=== PATIENT | male | born 1950 | race Caucasian/White ===

== ENCOUNTER 2021-06-26 11:05 | Inpatient (IN) | payer MEDICARE, BC ==
[~2021-06-26] VITALS: Ht 177 cm; Wt 122.6 kg
[~2021-06-26 11:05] MED LIST: ACETAMINOPHEN 325 MG TABLET PO PRN; BISACODYL 10 MG SUPP (DULCOLAX) PR PRN; CALCIUM CARBONATE 500 MG (TUMS) TAB.CHEW PO PRN; DOCUSATE SODIUM 100 MG (COLACE) CAP PO PRN; FLEET ENEMA ADULT 1 EA BTL PR PRN; LACTULOSE SYRUP 10GM/15ML (ENULOSE) 30ML UDC PO PRN; LOPERAMIDE 2 MG (IMODIUM) TABLET PO PRN; MELATONIN 3 MG TABLET PO PRN; ONDANSETRON 4 MG (ZOFRAN) ORAL DISSOLVE TAB PO PRN; diphenhydrAMINE 25 MG TAB (BENADRYL) PO PRN; guaiFENesin/CODEINE (ROBITUSSIN AC) 10ML UDC PO PRN
[2021-06-26 11:30] VITALS: BP 148/72
[2021-06-26] MEDS ORDERED: ALPRAZolam 0.25 MG (XANAX) TAB PO PRN (11:30)
--- NOTE | 2021-06-26 11:49 | PM&R Post Admission Assessment ---
PM&R Date of Visit: Jun 26, 2021 Time of Visit: 12:00 History of Present Illness Chief complaint: Critical illness myopathy History of present illness: This is a 70-year-old male who presented to [facility] on 05/15/2021 with respiratory distress and fever of 103 with diarrhea. He suffered a PEA cardiac arrest in the ER and was intubated and spent 1 week in the ICU with shock requiring Levophed. He suffered acute kidney injury due to acute tubular necrosis with his baseline of creatinine 1.3 but peaked at 6.7 and patient required hemodialysis. He did have an episode of atrial fibrillation with rapid ventricular response currently on amiodarone and Coreg. He was treated for a yeast infection in his upper respiratory tract along with Enterococcus and E. coli. He completed a regimen of micafungin and Rocephin. Rhinovirus was diagnosed 2 weeks prior to going to [place] on 06/08/2021. He was extubated on 1 6:02 days of ventilator status and placed on BiPAP. He was weaned to 4 L of oxygen at [place]. He cardioverted and now in normal sinus rhythm. His kidneys eventually regain function and the last dialysis was 06/05/2021. He remains with a Najera catheter in [employer] work on getting that removed. Past Fnnsnpb-Cssfht-Tdkpyc Hx Past Med/Social Hx: Reviewed Nursing Past Med/Soc Hx, Reviewed and Corrections made Patient Social History Marrital Status: Employed/Student: retired Alcohol Use: Denies Use Smoking Status: Never a Smoker Past Medical History Surgeries: CABG, Gallbladder Respiratory: Pneumonia, Sleep Apnea Cardiac: Atrial Fibrillation, Chronic Edema/Swelling, High Cholesterol, Hyp ertension Genitourinary: Renal Failure Musculoskeletal: Chronic Back Pain PM&R Allergy/Meds/Data Review Allergies Coded Allergies: temazepam (Verified Allergy, Unknown, 06/26/21) Home Medications Scheduled Amiodarone HCl (Amiodarone HCl), 200 MG PO DAILY, (Reported) Apixaban (Eliquis), 2.5 MG PO BID, (Reported) Atorvastatin Calcium (Atorvastatin Calcium), 40 MG PO Q48H @HS, (Reported) Carvedilol (Coreg), 3.125 MG PO BID, (Reported) Clopidogrel Bisulfate (Clopidogrel), 75 MG PO DAILY, (Reported) Docusate Sodium (Docusate Sodium), 100 MG PO BID, (Reported) Insulin Glargine,Hum.rec.anlog (Lantus Solostar), 22 UNITS SC HS, (Reported) Insulin Lispro (Humalog), UNIT SQ ACHS, (Reported) Pantoprazole Sodium (Pantoprazole Sodium), 40 MG PO DAILY, (Reported) Trazodone HCl (Trazodone HCl), 50 MG PO HS, (Reported) Scheduled PRN Acetaminophen (Tylenol), 650 MG PO Q6H PRN for PAIN-MILD (1-4) OR TEMPATURE, (Reported) Hydralazine HCl (Hydralazine HCl), 10 MG IV Q4H PRN for BLOOD PRESSURE, (Reported) Ipratropium/Albuterol Sulfate (Iprat-Albut 0.5-3(2.5) mg/3 ml), 3 ML IH Q6H PRN for SHORTNESS OF BREATH, (Reported) Melatonin (Melatonin), 10 MG PO HS PRN for INSOMNIA, (Reported) Ondansetron HCl (Ondansetron HCl), 4 MG IV Q6H PRN for NAUSEA/VOMITING-1ST LINE, (Reported) Oxycodone HCl/Acetaminophen (Oxycodone-Acetaminophen 5-325), 1 EACH PO Q4H PRN for PAIN-MODERATE (5-7), (Reported) Polyethylene Glycol 3350 (Miralax), 17 GM PO DAILY PRN for CONSTIPATION-2ND LINE, (Reported) Current Medications Current Medications Reviewed Review of Systems Constitutional: see HPI, malaise, weakness EENTM: no symptoms reported Respiratory: dyspnea on exertion Cardiovascular: no symptoms reported Gastrointestinal: no symptoms reported Genitourinary: other (Najera catheter) Musculoskeletal: back pain, joint pain Skin: no symptoms reported Psychiatric/Neurological: Anxiety, Depressed All Other Systems Reviewed Negative Unless Noted: Yes Physical Exam Physical Exam Vital Signs Capillary Refill : Height, Weight, BMI Height: '" Weight: lbs. oz. kg; BMI Method: General Appearance: No Apparent Distress, WD/WN, Chronically ill, Obese Eyes: Bilateral Eye Normal Inspection, Bilateral Eye PERRL HEENT: PERRL/EOMI, Normal ENT Inspection, Pharynx Normal Neck: Full Range of Motion, Normal Inspection, Non Tender, Supple, Carotid Bruit Respiratory: Chest Non Tender, Lungs Clear, Normal Breath Sounds, No Accessory Muscle Use, No Respiratory Distress Cardiovascular: Regular Rate, Rhythm, No Edema, No Gallop, No JVD, No Murmur, Normal Peripheral Pulses Gastrointestinal: Normal Bowel Sounds, No Organomegaly, No Pulsatile Mass, Non Tender, Soft Back: Normal Inspection, No CVA Tenderness, No Vertebral Tenderness Extremity: Normal Capillary Refill, Normal Inspection, Normal Range of Motion, Non Tender, No Calf Tenderness, No Pedal Edema Neurologic/Psychiatric: Alert, Oriented x3, No Motor/Sensory Deficits, Normal Mood/Affect, Abnormal Gait, Motor Weakness (Generalized 3/5) Skin: Normal Color, Warm/Dry Lymphatic: No Adenopathy PM&R Medical Assessment & Plan REHAB/MEDICAL ASSESSMENT AND PLAN: REHAB IMPAIRMENT GROUP: Myopathy ETIOLOGIC DIAGNOSIS: Myopathy The comorbidities that impact the patients function and/or functional outcome by: Increased BMI of 37, history of hemodialysis critically ill, atrial fibrillation with RVR who REHAB PLAN: The patient is being admitted to our comprehensive inpatient rehabilitation facility and can tolerate the intensity of service consisting of at least: 180 minutes of therapy a day, 5 out of 7 days a week Rehab treatment will consist of: PT and OT will focus on regaining function with assistive devices in order to regain enough independence to return back to independent living at home The patient/family has a good understanding of our discharge process and will benefit from an interdisciplinary inpatient rehabilitation program. The patient has potential to make improvement and is in need of at least two of the following multidisciplinary therapies including but not limited to physical, occupational, speech, and prosthetics and orthotics. Additionally the patient will need services from respiratory, nutritional services, wound care, psychology, etc. (Customize this to each patient). Given the patients complex condition and risk of further medical complications, rehabilitation services cannot be safely or effectively provided at a lower level of care such as a retirement facility. BARRIERS TO DISCHARGE: Severe weakness ESTIMATED LOS: 10 days DISPOSITION: Home RELEVANT CHANGES SINCE PREADMISSION SCREENING: I have compared the patients medical and functional status at the time of the preadmission screening and there are: No changes PROGNOSIS: Good REHABILITATION GOALS: 1. PT and OT will focus on regaining function with assistive devices in order to regain enough independence to return back to independent living at home All the above goals were reviewed with the patient and he/she is in agreement. By signing this document, I acknowledge that I have personally performed a full physical examination on this patient within 24 hours of admission to this inpatient rehabilitation facility and have determined the patient to be able to tolerate the above course of treatment at an intensive level for a reasonable period of time. I will be completing a detailed individualized Plan of Care for this patient by day #4 of the patients stay based upon the Preadmission Screen, the Post-Admission Evaluation, and the therapy evaluations. 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
--- NOTE | 2021-06-26 11:51 | Occupational Therapy Eval ---
OT Evaluation-General/PLF Medical Diagnosis Admission Date Jun 26, 2021 at 11:05 Medical Diagnosis: critical illness myopathy Onset Date: Jul 24, 2021 Therapy Diagnosis Therapy Diagnosis: decreased ADL status Referral Physician: John Patel Reason: Evaluation/Treatment Medical History Pertinent Medical History: CABG, CAD, COPD, DM, GERD, HTN, Renal Insufficiency Additional Medical History CHF, HLP, HERMINIO Current History Presented to [place] 05/15/21 with dyspnea, fever, and diarrhea. Found to be hypoxic and hypoglycemic. Shortly after arrival, had PEA arrest and emergent intubation. Transferred to ICU, developed OSWALDO secondary to ARN. ICU c/b afib with RVR. CXR positive for yeast, enterococcus, and E. Coli, also positive for rhinovirus. Pt extubated 05/20/21, permacath placed 06/04, removed 06/18/21. Pt transferred to ARU 06/26/21 for continued medication management and skilled therapy. Social History Home: Single Level Current Living Status: Spouse Entry Into Home: Stairs With Railing (unstable handrail) Steps Into Home: 2 ADL-Prior Level of Function SCALE: Activities may be completed with or without assistive devices. 0-Rzcfwhpktk-rheutph completes the activity by him/herself with no assistance from a helper. 5-Set-up or Clean-up Assistance-helper sets up or cleans up; patient completes activity. [place] assists only prior to or following the activity. 4-Supervision or Touching Assistance-helper provides verbal cues and/or touching/steadying and/or contact guard assistance as patient completes activity. Assistance may be provided throughout the activity or intermittently. 3-Partial/Moderate Assistance-helper does LESS THAN HALF the effort. [place] lifts, holds or supports trunk or limbs, but provides less than half the effort. 2-Substantial/Maximal Assistance-helper does MORE THAN HALF the effort. [place] lifts or holds trunk or limbs and provides more than half the effort. 9-Iqlbbwgsb-ltxofq does ALL the effort. Patient does none of the effort to complete the activity. Or, the assistance of 2 or more helpers is required for the patient to complete the activity. If activity was not attempted, code reason: 7-Patient Refused. 9-Not Applicable-not attempted and the patient did not perform the activity before the current illness, exacerbation or injury. 10-Not Attempted due to Environmental Limitations-(lack of equipment, weather restraints, etc.). 88-Not Attempted due to Medical Conditions or Safety Concerns. ADL PLOF Comments Pt reports IND with ADLS and functional mobility at PLOF, no AD/AE. He has both a tub/shower and a walk in shower. He is having grab bars installed in his bathroom. Self Care: Independent Functional Cognition: Independent DME/Equipment: Shower, Tub/Shower OT Current Status Subjective Pt agreeable to OT evaluation and OT tx. Mental Status/Objective Patient Orientation: Person, Place, Situation Attachments: IV, Oxygen Current Glasses/Contacts: Yes Hearing Aids: No Dentures/Partials: Yes Hand Dominance: Right Upper Extremity ROM WFL, BUE shoulder flexion to approx 130 degrees Upper Extremity Coordination WFL Upper Extremity Sensation WFL Upper Extremity Strength grossly 3+/5 ADL-Treatment Eating (QC): 5 (set up per report) Oral Hygiene (QC): 3 (Min A with rinsing per pt report) Shower/Bathe Self (QC): 3 (Min A. Assist with BLE lower legs/feet and buttocks. Pt washed all other parts seated.) Upper Body Dressing (QC): 5 (set up with washing machine loader and puller shirt) Lower Body Dressing (QC): 2 (Max a with threading and assist with pant hike) On/Off Footwear (QC): 1 (Total with gripper socks) Toileting Hygiene (QC): 2 (max A with pant hike and assistance with hygiene) Other Treatments OT evaluation complete. OT/PT cotreat due to skill of 2 clinicians required which a diagnostic technician could not perform in order to coordinate UE/LEs, decrease fall risk and due to pt's limitations in strength, activity tolerance and mobility. OT focused on UE placement and cues for sequencing and safety. PT focused on functional mobility/transfers, gross overall movement and LE placement. Pt completed functional mobility and transfers including car transfer, ambulation and bed mobility. OT tx: Pt transferred supine to sit EOB, then min A sit to stand transfer from elevated bed. Pt used FWW to transfer to recliner. Pt completed dressing and sponge bath as outlined above. Post tx, pt in recliner, call light in reach and all needs met. Waffle cushion in recliner. Education OT Patient Education: Correct positioning, Energy conservation, Exercise program, Modified ADL techniques, Progress toward Goal/Update tx plan, Purpose of tx/functional activities, Rehab process Teaching Recipient: Patient Teaching Methods: Discussion Response to Teaching: Verbalize Understanding OT Short Term Goals Short Term Goals Time Frame: Jul 10, 2021 Toileting hygiene: 3 Shower/bathe self: 4 Lower body dressin Putting on/taking off footwear: 3 OT Prison Goals Prison Goals Time Frame: Jul 24, 2021 Eating (QC): 6 Oral Hygiene (QC): 6 Toileting Hygiene (QC): 6 Shower/Bathe Self (QC): 6 Upper Body Dressing (QC): 6 Lower Body Dressing (QC): 6 On/Off Footwear (QC): 6 Additional Goals: 1-Demonstrate ADL Tasks, 2-Verbalize Understanding, 3- ImproveStrength/Queenie 1=Demonstrate adherence to instructed precautions during ADL tasks. 2=Patient will verbalize/demonstrate understanding of assistive devices/modifications for ADL. 3=Patient will improve strength/tolerance for activity to enable patient to perform ADL's. OT Education/Plan Problem List/Assessment Assessment: Decreased Activ Tolerance, Decreased UE Strength, Impaired Funct Balance, Impaired I ADL's, Impaired Self-Care Skills Discharge Recommendations Plan/Recommendations: Continue POC Treatment Plan/Plan of Care Patient would benefit from OT for education, treatment and training to promote independence in ADL's, mobility, safety and/or upper extremity function for ADL's. Plan of Care: ADL Retraining, Functional Mobility, Group Exercise/Act as Ind, UE Funct Exercise/Act Treatment Duration: Jul 24, 2021 Frequency: At least 5 of 7 days/Wk (IRF) Estimated Hrs Per Day: 1.5 hours per day Agreement: Yes Rehab Potential: Good Time/GCodes Start Time: 11:15 Stop Time: 12:00 Total Time Billed (hr/min): 45 Billed Treatment Time 9615-6653 OT eval, 2038-6958 [place], 8300-0710 OT Tx 1, EVM (10'), ADL 2 (35') WILSON TEJADA OT Jun 26, 2021 11:51
--- NOTE | 2021-06-26 12:31 | Physical Therapy Evaluation ---
PT Evaluation-General Medical Diagnosis Admission Date Jun 26, 2021 at 11:05 Medical Diagnosis: critical illness myopathy Onset Date: Jul 24, 2021 Therapy Diagnosis Therapy Diagnosis: impaired mobility, strength, endurance Referral Physician: Pratibha Lopez DO Reason for Referral: Evaluation/Treatment Medical History Pertinent Medical History: CABG, CAD, COPD, DM, GERD, HTN, Renal Insufficiency Reviewed History: Yes Social History Home: Single Level Current Living Status: Spouse Entry Into Home: Stairs With Railing (unstable handrail) PT Steps Into Home: 2 Prior Prior Level of Function SCALE: Activities may be completed with or without assistive devices. 3-Gyarxazxnq-sntslkc completes the activity by him/herself with no assistance from a helper. 5-Set-up or Clean-up Assistance-helper sets up or cleans up; patient completes activity. [place] assists only prior to or following the activity. 4-Supervision or Touching Assistance-helper provides verbal cues and/or touching/steadying and/or contact guard assistance as patient completes activity. Assistance may be provided throughout the activity or intermittently. 3-Partial/Moderate Assistance-helper does LESS THAN HALF the effort. [place] lifts, holds or supports trunk or limbs, but provides less than half the effort. 2-Substantial/Maximal Assistance-helper does MORE THAN HALF the effort. [place] lifts or holds trunk or limbs and provides more than half the effort. 6-Dvgjuroch-tpcsck does ALL the effort. Patient does none of the effort to complete the activity. Or, the assistance of 2 or more helpers is required for the patient to complete the activity. If activity was not attempted, code reason: 7-Patient Refused. 9-Not Applicable-not attempted and the patient did not perform the activity before the current illness, exacerbation or injury. 10-Not Attempted due to Environmental Limitations-(lack of equipment, weather restraints, etc.). 88-Not Attempted due to Medical Conditions or Safety Concerns. Bed Mobility: 6 Transfers (B,C,W/C): 6 Gait: 6 Stairs: 6 Indoor Mobility (Ambulation): Independent Stairs: Independent PT Evaluation-Current Subjective Patient in WC pre tx, agrees to PT, has no complaints of pain at rest. Will be co-treating with OT for part of tx due to poor patient mobility, strength, endurance, severe debility, coordinate UE and LE during activity, safety and reduce risk of falls. Pt/Family Goals to be independent at home Objective Patient Orientation: Person, Place, Situation Attachments: Oxygen, Najera Catheter ROM/Strength ROM Lower Extremities limited due to edema Strength Lower Extremities LLE (hip flexion 3+/5, knee flexion 4/5, knee extension 4/5, dorsiflexion 4/5), RLE (hip flexion 3+/5, knee flexion 4/5, knee extension 4/5, dorsiflexion 4/5) Sensory Hearing: Functional Hand Dominance: Right Sensation Right Lower Extremit: Intact Sensation Left Lower Extremity: Intact Transfers Roll Left & Right (QC): 4 Sit to Lying (QC): 4 Lying to Sitting/Side of Bed(Q: 4 Sit to Stand (QC): 3 Chair/Ora-qc-Tjccc Xfer(QC): 4 Toilet Transfer (QC): 4 Car Transfer (QC): 3 Patient performed rolling and supine <-> sit with SBA, sit <-> stand min assist, transfers CGA, car transfer min assist. Patient needs cues for positioning and safety. Gait Does the Patient Walk?: Yes Mode of Locomotion: Walk Anticipated Mode of Locomotion: Walk Walk 10 feet (QC): 4 Walk 50 ft with 2 Turns(QC): 88 Walk 150 ft (QC): 88 Walking 10ft/uneven surface-QC: 88 Distance: 40', 5' Gait Assistive Device: FWW Comments/Gait Description Patient can ambulate 40' with a rolling walker with CGA, patient is very shaky, was not able to ambulate over an uneven surface, very poor endurance Wheelchair Training Does the Pt Use a Wheelchair?: No Wheel 50 ft with 2 turns (QC): 9 Wheel 150 ft (QC): 9 Stairs 1 Step (curb) (QC): 88 4 Steps (QC): 88 12 Steps (QC): 88 Balance Sitting Static: Normal Sitting Dynamic: Normal Standing Static: Fair Standing Dynamic: Fair Picking up an Object (QC): 4 (CGA using metallurgical specialist) Assessment/Needs Patient in recliner post tx with nurse call, phone, tray, all needs met. Patient has impaired mobility, strength, endurance. Needs min assist to stand but performs transfers and ambulation with CGA. He has poor endurance and wasn't able to ambulate much after the first bout of ambulation. Rehab Potential: Fair PT Short Term Goals Short Term Goals Time Frame: Jul 03, 2021 Roll Left & Right: 6 Sit to lyin Lying to sitting on side of be: 6 Sit to stand: 4 (CGA) Chair/kaf-wm-fzegb transfer: 4 (SBA) Walk 10 feet: 4 (SBA) Walk 50 feet with two turns: 4 (SBA) PT [facility] Goals Internet Sales Director Goals PT [facility] Goals Time Frame: Jul 17, 2021 Roll Left & Right (QC): 6 Sit to Lying (QC): 6 Lying-Sitting on Side/Bed(QC): 6 Sit to Stand (QC): 4 (CGA) Chair/Jec-ms-Hdicn Xfer(QC): 6 Toilet Transfer (QC): 6 Car Transfer (QC): 4 (CGA) Does the Patient Walk: Yes Walk 10 feet (QC): 6 Walk 50ft with 2 Turns (QC): 6 Walk 150 ft (QC): 6 Walking 10ft on Uneven Surface: 6 1 Step (curb) (QC): 4 (CGA) 4 Steps (QC): 4 (CGA) 12 Steps (QC): 88 Picking up an Object (QC): 6 Wheel 50 feet with 2 turns (QC: 9 Wheel 150 feet: 9 PT Plan Problem List Problem List: Activity Tolerance, Functional Strength, Safety, Balance, Gait, Transfer, Bed Mobility, ROM Treatment/Plan Treatment Plan: Continue Plan of Care Treatment Plan: Bed Mobility, Education, Functional Activity Queenie, Functional Strength, Group Therapy, Gait, Safety, Therapeutic Exercise, Transfers Treatment Duration: Jul 17, 2021 Frequency: At least 5 of 7 days/Wk (IRF) Estimated Hrs Per Day: 1.5 hours per day Patient and/or Family Agrees t: Yes Safety Risks/Education Patient Education: Gait Training, Transfer Techniques, Correct Positioning, Safety Issues Teaching Recipient: Patient Teaching Methods: Demonstration, Discussion Response to Teaching: Reinforcement Needed Discharge Recommendations Plan Patient will perform bed mobility and transfer training, balance and endurance training, functional strengthening, stair training, gait training, and education, to improve functional mobility and independence at home. Therapy Discharge Recommendati: Home & Family, Post Acute PT Time/GCodes Time In: 1105 Time Out: 1130 Total Billed Treatment Time: 15 Total Billed Treatment 1 visit EVM 10' PT eval from 0498-3197, OT eval from 7135-3929, co-treat from 1227-3287 PT performed bed mobility and transfers, ambulation, OT worked on safety cues and UE positioning during activity MIGUEL ANGEL TIRADO PT Jun 26, 2021 12:31
[2021-06-26] MEDS ORDERED: CARV3.12 PO (13:26)
[2021-06-26] MEDS ORDERED: INSU100V SQ (13:26)
[2021-06-26] MEDS ORDERED: OXYC1TAB11 PO (13:26)
[2021-06-26] MEDS ORDERED: PANT40TA52 PO (13:26)
[2021-06-26] MEDS ORDERED: MELA5TAB14 PO (13:26)
[2021-06-26] MEDS ORDERED: DOCU100T2 PO (13:26)
[2021-06-26] MEDS ORDERED: IPRA3AMP31 IH (13:26)
[2021-06-26] MEDS ORDERED: INSU100I10 SC (13:26)
[2021-06-26] MEDS ORDERED: POLY17PO6 PO (13:26)
[2021-06-26] MEDS ORDERED: AMIO200T65 PO (13:26)
[2021-06-26] MEDS ORDERED: APIX2.5T PO (13:26)
[2021-06-26] MEDS ORDERED: ACET325T38 PO (13:26)
[2021-06-26] MEDS ORDERED: HYDR20VI7 IV (13:26)
[2021-06-26] MEDS ORDERED: TRZ50T PO (13:26)
[2021-06-26] MEDS ORDERED: CLOP75TA28 PO (13:26)
[2021-06-26] MEDS ORDERED: ONDA2VIA6C IV (13:26)
[2021-06-26] MEDS ORDERED: ATOR40TA70 PO (13:26)
--- NOTE | 2021-06-26 13:42 | Physical Therapy Daily Note ---
PT Daily Note-Current Subjective Pt. agrees to PT OT co Tx. Pt. very fatigued, weak, and at risk for incident of fall etc. Pt. explains his medical history, his recent medical history as well as his social situation which includes his who has dementia and requires his care. Pt. has 2 daughters in the area and one many years ago . Pt. motivated , shares the arrangement of his home and therapists explained how we will attempt to simulate that in the rehab process. Pt. states he has used O2 at home for quite some time.Pt. denied pain , but c/o fatigue and weakness mimi after TRF to bed from recliner. Pain Location: No Pain Reported Appearance pt. with noted edema peyton LEs, Mental Status Patient Orientation: Normal For Age Attachments: Oxygen (3L), Najera Catheter Transfers SCALE: Activities may be completed with or without assistive devices. 5-Ipqwjdfomj-ohlmsec completes the activity by him/herself with no assistance from a helper. 5-Set-up or Clean-up Assistance-helper sets up or cleans up; patient completes activity. [place] assists only prior to or following the activity. 4-Supervision or Touching Assistance-helper provides verbal cues and/or touching/steadying and/or contact guard assistance as patient completes activity. Assistance may be provided throughout the activity or intermittently. 3-Partial/Moderate Assistance-helper does LESS THAN HALF the effort. [place] lifts, holds or supports trunk or limbs, but provides less than half the effort. 2-Substantial/Maximal Assistance-helper does MORE THAN HALF the effort. [place] lifts or holds trunk or limbs and provides more than half the effort. 5-Jfvwbsfuc-xqwwba does ALL the effort. Patient does none of the effort to complete the activity. Or, the assistance of 2 or more helpers is required for the patient to complete the activity. If activity was not attempted, code reason: 7-Patient Refused. 9-Not Applicable-not attempted and the patient did not perform the activity before the current illness, exacerbation or injury. 10-Not Attempted due to Environmental Limitations-(lack of equipment, weather restraints, etc.). 88-Not Attempted due to Medical Conditions or Safety Concerns. Sit to Lying (QC): 4 Sit to Stand (QC): 4 Chair/Rtu-id-Aimlm Xfer(QC): 4 pt. uses a rocking momentum to stand from seated position, counting to 3 as he rocks forward x 3 then up Gait Training Does the Patient Walk?: Yes Gait Assistive Device: FWW pt. ambulated approx 8 feet from chair to bed with instruction for safe side stepping and approach to bed. small uneven steps, poor heel strike. Exercises Seated Therapy Exercises: Ankle pumps, Sit to stand (x1), Long arc quads, Hip flexion Seated Reps: 12 Treatments PT OT educated pt on ARU expectations , schedule, goals and roles of each discipline. Pt. demonstrated indep in managing dinner tray , utensil, drinking etc. OT noting LE edema donned bilat RAND hose max assist, Pt. stood with min assist and instruction and walked as per stated above, sit to sup CGA, O2 insitu, lazaro at hand and needs met. Assessment Current Status: Good Progress motivated, gives full effort PT Short Term Goals Short Term Goals Time Frame: Jul 03, 2021 Roll Left & Right: 6 Sit to lyin Lying to sitting on side of be: 6 Sit to stand: 4 (CGA) Chair/ajp-xc-savsu transfer: 4 (SBA) Walk 10 feet: 4 (SBA) Walk 50 feet with two turns: 4 (SBA) PT Alf Goals Alf Goals PT Alf Goals Time Frame: Jul 17, 2021 Roll Left & Right (QC): 6 Sit to Lying (QC): 6 Lying-Sitting on Side/Bed(QC): 6 Sit to Stand (QC): 4 (CGA) Chair/Khp-wd-Uesdn Xfer(QC): 6 Toilet Transfer (QC): 6 Car Transfer (QC): 4 (CGA) Does the Patient Walk: Yes Walk 10 feet (QC): 6 Walk 50ft with 2 Turns (QC): 6 Walk 150 ft (QC): 6 Walking 10ft on Uneven Surface: 6 1 Step (curb) (QC): 4 (CGA) 4 Steps (QC): 4 (CGA) 12 Steps (QC): 88 Picking up an Object (QC): 6 Wheel 50 feet with 2 turns (QC: 9 Wheel 150 feet: 9 PT Plan Treatment/Plan Treatment Plan: Continue Plan of Care Treatment Plan: Bed Mobility, Education, Functional Activity Queenie, Functional Strength, Group Therapy, Gait, Safety, Therapeutic Exercise, Transfers Treatment Duration: Jul 17, 2021 Frequency: At least 5 of 7 days/Wk (IRF) Estimated Hrs Per Day: 1.5 hours per day Patient and/or Family Agrees t: Yes Safety Risks/Education Patient Education: Gait Training, Transfer Techniques, Correct Positioning, Disease Process, Safety Issues Teaching Recipient: Patient Teaching Methods: Demonstration, Discussion Response to Teaching: Verbalize Understanding, Return Demonstration, Reinforcem ent Needed Time/GCodes Time In: 1245 Time Out: 1335 Total Billed Treatment Time: 50 Total Billed Treatment 1,FA50m PT OT co Tx 50m) ROMEO LOVE FUR OPERATOR Jun 26, 2021 13:42
--- NOTE | 2021-06-26 13:42 | Occupational Ther Daily Note ---
OT Current Status-Daily Note Subjective Pt alert, sitting in recliner. Pt agrees to therapy. No c/o pain. OT/PT co-treat(3402-8150), skills of 2 clinicians required to decrease fall risk and increase activity tolerance. PT focusing on ambulation and transfers while OT focusing on ADLs and B UE placement with functional mobility. Mental Status/Objective Patient Orientation: Person, Place, Time, Situation Attachments: IV, Oxygen (3L) ADL-Treatment Pt independent with eating. Pt is max A for footwear, is able to lift and hold leg while footwear is placed. Pt has walk-in shower with 2" ledge to step over. Pt completes most of cooking at home and does cleaning. has beginning stages of dementia. Sit to stand, min A. CGA and verbal cues to ambulate ~10 steps from recliner to EOB. Pt then was able to go from EOB to supine by self. After session, pt lying in bed with call light/phone in reach. All needs met in room. Therapy Code Descriptions/Definitions Functional [place] Measure: 0=Not Assessed/NA 4=Minimal Assistance 1=Total Assistance 5=Supervision or Setup 2=Maximal Assistance 6=Modified [place] 3=Moderate Assistance 7=Complete IndependenceSCALE: Activities may be completed with or without assistive devices. 5-Mxargolgpz-hxsrfzk completes the activity by him/herself with no assistance from a helper. 5-Set-up or Clean-up Assistance-helper sets up or cleans up; patient completes activity. [place] assists only prior to or following the activity. 4-Supervision or Touching Assistance-helper provides verbal cues and/or touching/steadying and/or contact guard assistance as patient completes activity. Assistance may be provided throughout the activity or intermittently. 3-Partial/Moderate Assistance-helper does LESS THAN HALF the effort. [place] lifts, holds or supports trunk or limbs, but provides less than half the effort. 2-Substantial/Maximal Assistance-helper does MORE THAN HALF the effort. [place] lifts or holds trunk or limbs and provides more than half the effort. 6-Grwkqwhvx-whrzcv does ALL the effort. Patient does none of the effort to complete the activity. Or, the assistance of 2 or more helpers is required for the patient to complete the activity. If activity was not attempted, code reason: 7-Patient Refused. 9-Not Applicable-not attempted and the patient did not perform the activity before the current illness, exacerbation or injury. 10-Not Attempted due to Environmental Limitations-(lack of equipment, weather restraints, etc.). 88-Not Attempted due to Medical Conditions or Safety Concerns. Eating (QC): 6 On/Off Footwear: 2 OT Short Term Goals Short Term Goals Time Frame: Jul 10, 2021 Toileting hygiene: 3 Shower/bathe self: 4 Lower body dressin Putting on/taking off footwear: 3 OT Child Caregiver Private Home Goals Child Caregiver Private Home Goals Time Frame: Jul 24, 2021 Eating (QC): 6 Oral Hygiene (QC): 6 Toileting Hygiene (QC): 6 Shower/Bathe Self (QC): 6 Upper Body Dressing (QC): 6 Lower Body Dressing (QC): 6 On/Off Footwear (QC): 6 Additional Goals: 1-Demonstrate ADL Tasks, 2-Verbalize Understanding, 3-ImproveStrength/Queenie 1=Demonstrate adherence to instructed precautions during ADL tasks. 2=Patient will verbalize/demonstrate understanding of assistive devices/modifications for ADL. 3=Patient will improve strength/tolerance for activity to enable patient to perform ADL's. OT Education/Plan Problem List/Assessment Assessment: Decreased Activ Tolerance, Impaired Funct Balance, Impaired Self- Care Skills Discharge Recommendations Plan/Recommendations: Continue POC Treatment Plan/Plan of Care Patient would benefit from OT for education, treatment and training to promote independence in ADL's, mobility, safety and/or upper extremity function for ADL's. Plan of Care: ADL Retraining, Functional Mobility, Group Exercise/Act as Ind, UE Funct Exercise/Act Treatment Duration: Jul 24, 2021 Frequency: At least 5 of 7 days/Wk (IRF) Estimated Hrs Per Day: 1.5 hours per day Agreement: Yes Rehab Potential: Good Time/GCodes Start Time: 12:45 Stop Time: 13:30 Total Time Billed (hr/min): 45 Billed Treatment Time 1 visit-FA 3 (45 min) ROSA M NOVA Jun 26, 2021 13:42
--- NOTE | 2021-06-26 14:53 | ST Cognitive Linguistic Eval ---
Speech Evaluation-General Medical Diagnosis critical illness myopathy Onset Date: Jul 24, 2021 Therapy Diagnosis Therapy Diagnosis: Cognitive Linguistic Skills WNL Precautions Precautions: Fall Precautions/Isolations: Standard Precautions Referral Referring Physician: Dr. Pratibha Lopez Reason for Referral: Evaluation/Treatment Medical History Pertinent Medical History: CABG, CAD, COPD, DM, GERD, HTN, Renal Insufficiency Current History The patient is a 70 year old male with a past medical history of CABG, CAD, COPD, DM, GERD, HTN, renal insufficiency, CHF, HLP, and HERMINIO, who presented to [facility] on 05/15/21 with dyspnea, fever, and diarrhea. The patient experienced a PEA arrest and was intubated. The patient's chest exam was positive for yeast, enterococcus, and E. Coli. The patient was extubated on 05/20/21 and transferred to ARU on 06/26/21 for skilled therapy. Reviewed History: Yes Social History Current Living Status: Spouse Speech PLF-Current Status Prior Level of Function The patient was independent with ADL's prior to admission. At this time, the patient denies difficulties or complaints with his speech, language, cognition, or swallowing. Subjective The patient was seated upright in his recliner upon entrance to the court. The patient greeted the clinician and was agreeable to participation in the cognitive linguistic evaluation. Language Eval: Auditory Comprehends Simple Yes/No Ques: Functional Indent/Objects Multiple Velasquez: Functional Ident/Pics in Multiple Vel[place]: Functional Follows 1-Step Commands: Functional Follows Complex Directions: Functional Follows General Conversations: Functional Language Eval: Verbal Language Completes Spontaneous Greeting: Functional Produces Auto, Serial Info: Functional Imitates Simple Words/Phrases: Functional Word Finding: Functional Requests Basic Needs: Functional States Basic Personal Info: Functional Expresses Complex Ideas: Functional Language Evaluation: Reading Follows Simple Written Direct: Functional Language Evaluation: Writing Writes to Simple Dictation: Functional Cognitive Patient Orientation The patient was independently oriented to self, location, month, day of week, date, and year. Objective Cognitive Domain Attention: WNL Memory: WNL Problem Solving: Functional Executive Functions: WNL Visuospatial Skills: WNL Composite Severity Rating: WNL Clock Drawing Severity Rating: Mild (The patient does not place the hands of the clock on the accurate time. ) Objective Formal/Standardized Tests [facility] Status ([facility]) Results The patient demonstrated a result of +27/30 on the SLUMS correlating to cognitive linguistic skills within normal limits. Oral Motor/Speech Production The patient does not display dysarthria or apraxia of speech at this time. The patient remains 100% intelligible in known and unknown contexts. Impression The patient demonstrated cognitive linguistic skills within normal limits. The patient demonstrated one error throughout the SLUMS while completing generative naming tasks (the patient was able to name 14, WNL=15) and was unable to place the hands of the clock at the accurate time. Speech Patient Assess Expression of Ideas/Wants: Expression (4) Understanding Verbal Content: Understands (4) Brief Interview-Mental Status: Yes Repetition of Three Words: Three (3) Temporal Orientation: Year: Correct (3) Temporal Orientation: Month: Accurate within 5 days(2) Temporal Orientation: Day: Correct (1) Recall : Wear to say "Sock": Yes, no cue required (2) Recall : Color: Yes, no cue required (2) Recall : Bed: Yes, no cue required (2) Memory/Recall Ability: Current season, That he or she is in a hsp/hsp unit Speech-Plan Treatment Plan Speech Therapy Treatment Plan: Discontinue ST Frequency: 1 time per week Estimated Hrs Per Day: .5 hour per day Rehab Potential: Good Pt/Family Agrees to Plan: Yes Safety Risks/Education Teaching Recipient: Patient, Family Teaching Methods: Discussion Response to Teaching: Verbalize Understanding Education Topics Provided: SLUMS results, Plan of Care, Recommendations Time Speech Therapy Time In: 12:00 Speech Therapy Time Out: 12:30 Total Billed Time: 30 Billed Treatment Time 1, ANNE CHAIDEZ ELIZABETH ST Jun 26, 2021 14:53
[2021-06-26] MEDS ORDERED: hydrALAZINE (APESOLINE) 20 MG/ML VIAL IV PRN (17:00)
[2021-06-26] MEDS ORDERED: ACETAMINOPHEN 325 MG TABLET PO PRN (17:00)
[2021-06-26] MEDS ORDERED: NON-FORMULARY MEDICATION 1 EA EA (Ondansetron HCl 4 MG) IV PRN (17:00)
[2021-06-26] MEDS ORDERED: NON-FORMULARY MEDICATION 1 EA EA (Melatonin 10 MG) PO PRN (17:00)
[2021-06-26] MEDS ORDERED: polyethylene glycoL POWDER 17 GM (MIRALAX) PACK PO PRN (17:00)
[2021-06-26] MEDS ORDERED: RT-ALBUTEROL/IPRATROPIUM 3 ML (DUONEB) VIAL IH PRN (17:00)
[2021-06-26] MEDS: oxyCODONE/APAP 5/325MG (PERCOCET 5) TABLET PO PRN (17:08)
[2021-06-26] MEDS ORDERED: ONDANSETRON 4 MG/2 ML (SDV) Z0FRAN IV PRN (17:15)
[2021-06-26] MEDS ORDERED: MELATONIN 10 MG TABLET PO PRN (17:15)
[2021-06-26 20:02] VITALS: BP 131/62
[2021-06-26] MEDS ORDERED: [UNRECOGNIZED DRUG - OTHER] SC SCH (21:00)
[2021-06-26] MEDS ORDERED: NON-FORMULARY MEDICATION 1 EA EA (Docusate Sodium 100 MG) PO SCH (21:00)
[2021-06-26] MEDS ORDERED: INSULIN GLARGINE HUM REC ANLOG 22 UNIT SC SCH (21:00)
[2021-06-26] MEDS: traZODone 50 MG (DESYREL) TAB PO SCH (21:09)
[2021-06-26] MEDS: DOCUSATE SODIUM 100 MG (COLACE) CAP PO SCH (21:09)
[2021-06-26] MEDS: APIXABAN 2.5 MG (ELIQUIS) TABLET PO SCH (21:09)
[2021-06-26] MEDS: SENNA W/DOCUSATE (SENOKOT S) TABLET PO SCH (21:09)
[2021-06-26] MEDS: inSUlin ASPART (NovoLOG) 1 UNIT/0.01 ML (CHARGE PER UNIT) SC SCH (21:11)
[2021-06-26] MEDS: polyethylene glycoL POWDER 17 GM (MIRALAX) PACK PO SCH (21:12)
[2021-06-27] MEDS: inSUlin ASPART (NovoLOG) 1 UNIT/0.01 ML (CHARGE PER UNIT) SC SCH ×4 (05:24→21:53)
--- NOTE | 2021-06-27 06:48 | Individualized Plan of Care ---
Individualized Plan of Care Rehab Nursing IPOC Order Admission Date Jun 26, 2021 at 11:05 Current Orders Orders Admission Order(Inpt,Obs,Sdc) (06/26/21:23) Vital Signs: Per Unit Policy ( 08,16,00 (06/26/21 09:23) Wiliam Thomas (06/26/21:23) Sequential Compression Device (06/26/21:23) Welder Fitter Helper-Inpt Rehab Con (06/26/21:23) Rehab Nursing Orders-Ipoc (06/26/21:23) Physical Therapy Rehab Orders (06/26/21:23) Occupational Therapy Rehab Ord (06/26/21:) Speech Therapy Rehab Orders (06/26/21) Cbc With Automated Diff (06/27/21 06:00) Comprehensive Metabolic Panel (06/27/21 06:00) Precautions (Aru) (06/26/21:) Weekly Weight WEEK (06/26/21:) Rehab-Intensity Of Therapy (06/26/21:23) Initiate Admission Nursing Pro .admission (06/26/21:23) Alprazolam Tablet (Xanax Tablet) (06/26/21 11:30) Calcium Carbonate Chew Tablet (Antacid C (06/26/21 09:30) Diphenhydramine Tablet (Benadryl Tablet) (06/26/21 09:30) Docusate Sodium Capsule (Colace Capsule) (06/26/21 21:00) Docusate Sodium Capsule (Colace Capsule) (06/26/21 09:30) Bisacodyl Suppository (Dulcolax Supposit (06/26/21 09:30) Lactulose Oral Solution (Enulose Oral So (06/26/21 09:30) Na Phos/Na Biphos Enema (Fleet Enema Srinivasan (06/26/21 09:30) Guaifenesin/Codeine Syrup (Robitussin Ac (06/26/21 09:30) Loperamide Tablet (Imodium Tablet) (06/26/21 09:30) Melatonin Tablet (Melatonin Tablet) (06/26/21 09:30) Polyethylene Glycol Powder Pkt (Miralax (06/26/21 21:00) Ondansetron Oral Dissolve Tab (Zofran (06/26/21 09:30) Senna S Tablet (Senokot S Tablet) (06/26/21 21:00) Acetaminophen Tablet/Caplet (Tylenol T (06/26/21 09:30) Code/Resuscitation (06/26/21 09:23) Sequential Compression Device ONCE (06/26/21 09:23) Initiate Admission Nursing Pro .admission (06/26/21 09:23) Admission Arrival Bed Request (06/26/21 11:12) Cho 60g/M 1snack (16-2000 Óscar) (06/26/21 Lunch) Patient Visit (06/26/21 ) Pt Eval Moderate Complexity (06/26/21 ) Isolation Central Supply Req (06/26/21 14:01) Patient Visit (06/26/21 ) Functional Activities, Ea 15 (06/26/21 ) Patient Visit (06/26/21 ) Speech Sound Lang Comp (06/26/21 ) Treat. Speech/Lang/Voice (06/26/21 ) Acetaminophen Tablet/Caplet (Tylenol T (06/26/21 17:00) Amiodarone Tablet (Cordarone Tablet) (06/27/21 09:00) Apixaban Tablet (Eliquis Tablet) (06/26/21 21:00) Atorvastatin Tablet (Lipitor Tablet) (06/26/21 17:00) Carvedilol Tablet (Coreg Tablet) (06/26/21 21:00) Clopidogrel Tablet (Plavix Tablet) (06/27/21 09:00) Hydralazine Injection (Apresoline Inject (06/26/21 17:00) Albuterol/Ipra Inhalation Soln (Duoneb I (06/26/21 17:00) Oxycodone/Apap 5/325mg Tablet (Percocet (06/26/21 17:00) Pantoprazole Tablet (Protonix Tablet) (06/27/21 09:00) Polyethylene Glycol Powder Pkt (Miralax (06/26/21 17:00) Trazodone Tablet (Desyrel Tablet) (06/26/21 21:00) (Nf) Docusate Sodium (06/26/21 21:00) (Nf) Insulin Glargine,Hum.Rec.Anlog (Adelso (06/26/21 21:00) (Nf) Melatonin (06/26/21 17:00) (Nf) Ondansetron Hcl (06/26/21 17:00) Accucheck Achs ACHS (06/26/21 16:55) Insulin Aspart (Novolog) (Novolog (Charg (06/26/21 21:00) Ondansetron Injection (Zofran Injectio (06/26/21 17:15) Insulin Determir (Per Unit) (Levemir (Pe (06/26/21 21:00) Melatonin Tablet (Melatonin Tablet) (06/26/21 17:15) Consult Cardiology (06/27/21 06:38) Ekg Tracing (06/27/21 08:00) Patient Visit (06/27/21 ) Gait Training, Ea 15 Min (06/27/21 ) Patient May Use Own Med,Single (Patient (06/27/21 21:00) Incentive Spirometry (Nursing) Q2H (06/27/21 12:16) Non-Formulary Medication (Non-Formulary (06/27/21 21:00) Apixaban Tablet (Eliquis Tablet) (06/27/21 21:00) Basic Metabolic Panel (06/28/21 05:00) Rehab Nursing Orders: Ongoing Assess. of Cognitive Status, Ongoing Assess. of Function Status, Bladder Management, Bladder Scan, Bladder Training, Bowel Management, Bowel Training, Disease Management & Educaiton, DVT Prophylaxis, Fall Prevention, Fluid/Electrolyte/Nutrition Mgmt, Infection Prevention, Medication Management & Education, Management of Risks & Complications, Management of Skin Intergrity, Nutrition Management, Pain Management, Patient/Family Support, Safety Management Intensity of Therapy to be met Patient to be seen: Min.3h per day/5 of 7d PT IPOC Problem List: Activity Tolerance, Functional Strength, Safety, Balance, Gait, Transfer, Bed Mobility, ROM Treatment Plan: Continue Plan of Care Bed Mobility, Education, Functional Activity Queenie, Functional Strength, Group Therapy, Gait, Safety, Therapeutic Exercise, Transfers Treatment Duration: Jul 17, 2021 Frequency: At least 5 of 7 days/Wk (IRF) Estimated Hrs Per Day: 1.5 hours per day OT IPOC Problems: Decreased Activ Tolerance, Impaired Funct Balance, Impaired Self-Care Skills OT Treatment, Training and Edu: Yes Plan of Care: ADL Retraining, Functional Mobility, Group Exercise/Act as Ind, UE Funct Exercise/Act Treatment Duration: Jul 24, 2021 Frequency: At least 5 of 7 days/Wk (IRF) Estimated Hrs Per Day: 1.[address] IPOC Speech Therapy Treatment Plan: Discontinue ST Treatment Duration: Jun 26, 2021 Frequency: 1 time per week Estimated Hrs Per Day: .5 hour per day Welder Fitter Helper/Case Mgmt Welder Fitter Helper/Case Managemen: Discharge Planning Dietitian/Smt Machine Operator Dietitian/Smt Machine Operator to monitor nutritional status and make changes and/or recommendations as needed and work with speech pathology on dietary upgrades as the occur. Physician IPOC Medical Issues being managed closely and that require the 24 hour availability of a physician: Patient with recent critical illness including dialysis required will require close monitoring for any decompensation and worsening renal function which will place him at risk for respiratory failure Medical Issues: Bowel/Bladder Function, DVT Prophylaxis, Falls Precautions, Fluid/Electrolyte/Nutrition Balance, Infection Protection, Pain Management Brief Synthesis of Preadmission Screen, Post-Admission Evaluation, and Therapy Evaluations: PT and OT will focus on regaining strength with the use of assistive devices in order to help regain independent ambulation and ADLs in order to return back home Medical Prognosis: Good Anticipated Length of Stay: 10 days CARLENE BYRNE DO Jun 27, 2021 06:48
--- NOTE | 2021-06-27 06:48 | PM&R Progress Note ---
Subjective HPI/CC On Admission Date Seen by Provider: Jun 27, 2021 Time Seen by Provider: 12:00 Subjective/Events-last exam 06/27/2021: Patient doing very well Settling in well Bowels moved today Slept really well last night for the first time in weeks EKG obtained showing atrial fibrillation Dr. Sumner will consult Kidney function stable Review of Systems General: Fatigue, Malaise Objective Exam Vital Signs Vital Signs Date Time Temp Pulse Resp B/P (MAP) Pulse Ox O2 Delivery O2 Flow Rate FiO2 06/27/21 21:50 96 Nasal Cannula 3.00 06/27/21 19:51 36.4 81 16 126/60 (82) Capillary Refill : General Appearance: No Apparent Distress, WD/WN, Chronically ill, Obese HEENT: PERRL/EOMI, Normal ENT Inspection, Pharynx Normal Neck: Full Range of Motion, Normal Inspection, Non Tender, Supple, Carotid Bruit Respiratory: Chest Non Tender, Lungs Clear, Normal Breath Sounds, No Accessory Muscle Use, No Respiratory Distress Cardiovascular: Regular Rate, Rhythm, No Edema, No Gallop, No JVD, No Murmur, Normal Peripheral Pulses Gastrointestinal: Normal Bowel Sounds, No Organomegaly, No Pulsatile Mass, Non Tender, Soft Back: Normal Inspection, No CVA Tenderness, No Vertebral Tenderness Extremity: Normal Capillary Refill, Normal Inspection, Normal Range of Motion, Non Tender, No Calf Tenderness, No Pedal Edema Neurologic/Psychiatric: Alert, Oriented x3, No Motor/Sensory Deficits, Normal Mood/Affect, Abnormal Gait, Motor Weakness (Generalized 3/5) Skin: Normal Color, Warm/Dry Lymphatic: No Adenopathy Results/Procedures Lab Laboratory Tests 06/28/21 05:45 Patient resulted labs reviewed. FIM Transfers Therapy Code Descriptions/Definitions Functional [place] Measure: 0=Not Assessed/NA 4=Minimal Assistance 1=Total Assistance 5=Supervision or Setup 2=Maximal Assistance 6=Modified [place] 3=Moderate Assistance 7=Complete IndependenceSCALE: Activities may be completed with or without assistive devices. 4-Wpomqqhany-xnidhmf completes the activity by him/herself with no assistance from a helper. 5-Set-up or Clean-up Assistance-helper sets up or cleans up; patient completes activity. [place] assists only prior to or following the activity. 4-Supervision or Touching Assistance-helper provides verbal cues and/or touching/steadying and/or contact guard assistance as patient completes activity. Assistance may be provided throughout the activity or intermittently. 3-Partial/Moderate Assistance-helper does LESS THAN HALF the effort. [place] lifts, holds or supports trunk or limbs, but provides less than half the effort. 2-Substantial/Maximal Assistance-helper does MORE THAN HALF the effort. [place] lifts or holds trunk or limbs and provides more than half the effort. 0-Gcpjmshfh-fmjwsa does ALL the effort. Patient does none of the effort to complete the activity. Or, the assistance of 2 or more helpers is required for the patient to complete the activity. If activity was not attempted, code reason: 7-Patient Refused. 9-Not Applicable-not attempted and the patient did not perform the activity before the current illness, exacerbation or injury. 10-Not Attempted due to Environmental Limitations-(lack of equipment, weather restraints, etc.). 88-Not Attempted due to Medical Conditions or Safety Concerns. Roll Left to Right (QC): 4 Sit to Lying (QC): 4 Sit to Stand (QC): 4 Chair/Pia-ul-Zgbas Xfer(QC): 4 Car Transfer (QC): 3 Gait Training Does the Patient Walk?: Yes Walk 10 feet (QC): 4 Walk 50 ft with 2 Turns(QC): 88 Walk 150 ft (QC): 88 Walking 10ft/uneven surface-QC: 88 Gait Assistive Device: FWW Wheelchair Training Does the Pt Use a Wheelchair?: No Wheel 50 ft with 2 turns (QC): 9 Wheel 150 ft (QC): 9 Stair Training 1 Step (curb) (QC): 88 4 Steps (QC): 88 12 Steps (QC): 88 Balance Picking up an Object (QC): 4 (CGA using shear operator automatic) ADL-Treatment Eating (QC): 6 Oral Hygiene (QC): 3 (Min A with rinsing per pt report) Shower/Bathe Self (QC): 3 (Min A. Assist with BLE lower legs/feet and buttocks. Pt washed all other parts seated.) Upper Body Dressing (QC): 5 (set up with rib puller shirt) Lower Body Dressing (QC): 2 (Max a with threading and assist with pant hike) On/Off Footwear (QC): 2 Toileting Hygiene (QC): 2 (max A with pant hike and assistance with hygiene) Assessment/Plan Assessment and Plan Assess & Plan/Chief Complaint Assessment: Critical illness myopathy Recent new onset atrial fibrillation with RVR now normal sinus rhythm on amiodarone and Coreg Diabetes Hypertension Hyperlipidemia COPD CHF Chronic kidney disease stage III CAD previous bypass GERD HERMINIO Najera catheter in place Plan: Rehab protocol Restarted all meds from [facility] Supportive care 06/27/2021: Supportive care DC Najera catheter Tuesday in case urinary retention occurs and urology will be available (1) Myopathy (2) History of renal dialysis (3) Increased BMI (4) Atrial fibrillation (5) Anticoagulation adequate CARLENE BYRNE DO Jun 27, 2021 06:48
[2021-06-27 06:57] LABS: BASOPHILS % (AUTO) 1 % (0-10); EOSINOPHILS # (AUTO) 0.3 10^3/uL (0.0-0.3); EOSINOPHILS % (AUTO) 5 % (0-10); HEMATOCRIT 30 % (40-54); HEMOGLOBIN 9.5 g/dL (13.3-17.7); LYMPHOCYTES # (AUTO) 1.3 10^3/uL (1.0-4.0); LYMPHOCYTES % (AUTO) 28 % (12-44); MEAN CORPUSCULAR HEMOGLOBIN 30 pg (25-34); MEAN CORPUSCULAR HGB CONC 31 g/dL (32-36); MEAN CORPUSCULAR VOLUME 96 fL (80-99); MEAN PLATELET VOLUME 9.5 fL (9.0-12.2); MONOCYTES # (AUTO) 0.5 10^3/uL (0.0-1.0); MONOCYTES % (AUTO) 10 % (0-12); NEUTROPHILS # (AUTO) 2.7 10^3/uL (1.8-7.8); NEUTROPHILS % (AUTO) 55 % (42-75); PLATELET COUNT 140 10^3/uL (130-400); WHITE BLOOD COUNT 4.8 10^3/uL (4.3-11.0)
[2021-06-27 07:17] LABS: ALBUMIN 3.4 GM/DL (3.2-4.5)
[2021-06-27 07:19] LABS: CALCIUM 8.8 MG/DL (8.5-10.1)
[2021-06-27 07:20] LABS: TOTAL PROTEIN 6.4 GM/DL (6.4-8.2)
[2021-06-27 07:22] LABS: BILIRUBIN,TOTAL 0.7 MG/DL (0.1-1.0)
[2021-06-27 07:24] LABS: CREATININE SERUM 2.38 MG/DL (0.60-1.30)
[2021-06-27 08:00] VITALS: BP 153/70
[2021-06-27] MEDS: DOCUSATE SODIUM 100 MG (COLACE) CAP PO SCH ×2 (09:16→21:51)
[2021-06-27] MEDS: CLOPIDOGREL 75 MG (PLAVIX) TABLET PO SCH (09:17)
[2021-06-27] MEDS: SENNA W/DOCUSATE (SENOKOT S) TABLET PO SCH ×2 (09:17→21:51)
[2021-06-27] MEDS: PANTOPRAZOLE 40 MG (PROTONIX) TAB PO SCH (09:17)
[2021-06-27] MEDS: AMIODARONE 200 MG (CORDARONE) TAB PO SCH (09:17)
[2021-06-27] MEDS: APIXABAN 2.5 MG (ELIQUIS) TABLET PO SCH ×2 (09:17→21:52)
[2021-06-27] MEDS: polyethylene glycoL POWDER 17 GM (MIRALAX) PACK PO SCH ×2 (09:31→21:55)
--- NOTE | 2021-06-27 11:13 | Physical Therapy Daily Note ---
PT Daily Note-Current Subjective Pt laying bed upon arrival and agrees to PT. Says last night was the best night of sleep he's had in 40 days. Mental Status Patient Orientation: Person, Place, Time, Normal For Age Attachments: Oxygen (3L), Najera Catheter Transfers SCALE: Activities may be completed with or without assistive devices. 9-Btvlpwuraa-rntwvnb completes the activity by him/herself with no assistance from a helper. 5-Set-up or Clean-up Assistance-helper sets up or cleans up; patient completes activity. [place] assists only prior to or following the activity. 4-Supervision or Touching Assistance-helper provides verbal cues and/or touching/steadying and/or contact guard assistance as patient completes activity. Assistance may be provided throughout the activity or intermittently. 3-Partial/Moderate Assistance-helper does LESS THAN HALF the effort. [place] lifts, holds or supports trunk or limbs, but provides less than half the effort. 2-Substantial/Maximal Assistance-helper does MORE THAN HALF the effort. [place] lifts or holds trunk or limbs and provides more than half the effort. 9-Qszpiukbs-qekado does ALL the effort. Patient does none of the effort to complete the activity. Or, the assistance of 2 or more helpers is required for the patient to complete the activity. If activity was not attempted, code reason: 7-Patient Refused. 9-Not Applicable-not attempted and the patient did not perform the activity before the current illness, exacerbation or injury. 10-Not Attempted due to Environmental Limitations-(lack of equipment, weather restraints, etc.). 88-Not Attempted due to Medical Conditions or Safety Concerns. Roll Left & Right (QC): 4 Sit to Stand (QC): 4 Gait Training Does the Patient Walk?: Yes Distance: 150' x 1 100' x 1 Walk 10 feet (QC): 4 Walk 50 ft with 2 Turns(QC): 4 Walk 150 ft (QC): 4 Gait Persons Needed: 1 Gait Assistive Device: FWW ambulates very slowly Treatments Performs sit to stand w/ CGA/Alison and amb into maldonado. Pt requires brief rest break and then amb 150'. Then another rest and then amb 100' back to room and Tfs to recliner w/ all needs met and call light nearby and nurse present as PT departs. Assessment Current Status: Good Progress Requires skilled verbal cues about hand and foot placement during TFs.Amb slowly but is able to increase amb distance this date. PT Short Term Goals Short Term Goals Time Frame: Jul 03, 2021 Roll Left & Right: 6 Sit to lyin Lying to sitting on side of be: 6 Sit to stand: 4 (CGA) Chair/gbj-kg-soxhs transfer: 4 (SBA) Walk 10 feet: 4 (SBA) Walk 50 feet with two turns: 4 (SBA) PT Mcc Goals Ammunition Specialist Goals PT Mcc Goals Time Frame: Jul 17, 2021 Roll Left & Right (QC): 6 Sit to Lying (QC): 6 Lying-Sitting on Side/Bed(QC): 6 Sit to Stand (QC): 4 (CGA) Chair/Ywq-ib-Rjtxf Xfer(QC): 6 Toilet Transfer (QC): 6 Car Transfer (QC): 4 (CGA) Does the Patient Walk: Yes Walk 10 feet (QC): 6 Walk 50ft with 2 Turns (QC): 6 Walk 150 ft (QC): 6 Walking 10ft on Uneven Surface: 6 1 Step (curb) (QC): 4 (CGA) 4 Steps (QC): 4 (CGA) 12 Steps (QC): 88 Picking up an Object (QC): 6 Wheel 50 feet with 2 turns (QC: 9 Wheel 150 feet: 9 PT Plan Problem List Problem List: Activity Tolerance, Functional Strength, Safety Treatment/Plan Treatment Plan: Continue Plan of Care Treatment Plan: Bed Mobility, Education, Functional Activity Queenie, Functional Strength, Group Therapy, Gait, Safety, Therapeutic Exercise, Transfers Treatment Duration: Jul 17, 2021 Frequency: At least 5 of 7 days/Wk (IRF) Estimated Hrs Per Day: 1.5 hours per day Patient and/or Family Agrees t: Yes Safety Risks/Education Patient Education: Transfer Techniques Teaching Recipient: Patient Teaching Methods: Discussion Response to Teaching: Return Demonstration Time/GCodes Time In: 1045 Time Out: 1105 Total Billed Treatment Time: 20 Total Billed Treatment 1, GT 20min LOBO SANDERS FIELD MARKETING COORDINATOR Jun 27, 2021 11:13
--- NOTE | 2021-06-27 13:55 | Consultation-Cardiology ---
HPI-Cardiology Cardiology Consultation: Date of Consultation 06/27/2021 Date of Admission 06/26/2021 Attending Physician Pratibha Lopez DO Admitting Physician Anatoly Sanchez DO Consulting Physician KOLBY MAGALLANES JR, MD HPI: Time Seen by a Provider: 13:51 Chief Complaint: Reason for consultation: Atrial fibrillation and history of coronary artery disease. I had the pleasure of seeing Chun on the inpatient rehabilitation unit at [facility] in [place], [place] this afternoon. He has a known history of coronary artery disease with previous coronary artery bypass surgery followed by coronary stents. He normally follows with a geothermal operations engineer at [facility] in [place] [address]. At the last part of the April 2021 he came down with Covid and was admitted to [facility]. Is course was quite complicated and he was on prolonged ventilatory support as well as developed acute renal failure and had 5 treatments with hemodialysis. He was later transferred to [facility] for ongoing pulmonary rehab. As he improved from that, he was eventually transferred to our facility. While he was in the first hospital, he developed atrial fibrillation. He was placed on amiodarone and oral anticoagulation. He believes he underwent a cardioversion. He denies any previous history of atrial fibrillation. Because of this history, a cardiology consultation was requested. He denies any chest discomfort. He has dyspnea on exertion which he relates is due to having to wear a mask during physical rehab. He denies paroxysmal nocturnal dyspnea or orthopnea as long as he is using his CPAP. He denies palpitations, lightheadedness, or syncope. He has chronic bilateral ankle edema which is somewhat worse than he usually experiences at home. He normally takes furosemide on a daily basis at home and this helps with his edema. Certain portions of this document may have been dictated utilizing voice recognition technology. Inherent to this technology, typographical and grammatical errors may exist. As much as I am diligent to identify and correct these mistakes, some errors may remain in the document. Review of Systems-Cardiology Review of Systems Other comments Review of 10 organ systems is as per the history of present illness, otherwise negative. All Other Systems Reviewed Negative Unless Noted: Yes QGD-Naxnae-Lyednx Hx Patient Social History Marrital Status: Employed/Student: retired Smoking Status: Never a Smoker Have you traveled recently?: No Alcohol Use?: No Pt feels they are or have been: No Past Medical History PMH As described under Assessment. Family Medical History Family Medical History: He did not report a family history of premature coronary disease. Allergies and Home Medications Allergies Coded Allergies: temazepam (Verified Allergy, Unknown, 06/26/21) Patient Home Medication List Home Medication List Reviewed: Yes Acetaminophen (Tylenol) 325 Mg Tablet, 650 MG PO Q6H PRN for PAIN-MILD (1-4) OR TEMPATURE, (Reported) Entered as Reported by: REAGAN SY on 06/26/211325 Last Action: Continued Amiodarone HCl (Amiodarone HCl) 200 Mg Tablet, 200 MG PO DAILY, (Reported) Entered as Reported by: REAGAN SY on 06/26/211325 Last Action: Continued Apixaban (Eliquis) 2.5 Mg Tablet, 2.5 MG PO BID, (Reported) Entered as Reported by: REAGAN SY on 06/26/211325 Last Action: Continued Atorvastatin Calcium (Atorvastatin Calcium) 40 Mg Tablet, 40 MG PO Q48H @HS, (Reported) Entered as Reported by: REAGAN SY on 06/26/211325 Last Action: Continued Carvedilol (Coreg) 3.125 Mg Tablet, 3.125 MG PO BID, (Reported) Entered as Reported by: REAGAN SY on 06/26/211325 Last Action: Continued Clopidogrel Bisulfate (Clopidogrel) 75 Mg Tablet, 75 MG PO DAILY, (Reported) Entered as Reported by: REAGAN SY on 06/26/211325 Last Action: Continued Docusate Sodium (Docusate Sodium) 100 Mg Tablet, 100 MG PO BID, (Reported) Entered as Reported by: REAGAN SY on 06/26/211325 Last Action: Converted Hydralazine HCl (Hydralazine HCl) 20 Mg/1 Ml Vial, 10 MG IV Q4H PRN for BLOOD PRESSURE, (Reported) Entered as Reported by: REAGAN SY on 06/26/211325 Last Action: Continued Insulin Glargine,Hum.rec.anlog (Lantus Solostar) 100 Unit/1 Ml Insuln.pen, 22 UNITS SC HS, (Reported) Entered as Reported by: REAGAN SY on 06/26/211325 Last Action: Converted Insulin Lispro (Humalog) 100 Unit/1 Ml Vial, UNIT SQ ACHS, (Reported) Entered as Reported by: REAGAN SY on 06/26/211325 Last Action: Held Ipratropium/Albuterol Sulfate (Iprat-Albut 0.5-3(2.5) mg/3 ml) 3 Ml Ampul.neb, 3 ML IH Q6H PRN for SHORTNESS OF BREATH, (Reported) Entered as Reported by: REAGAN SY on 06/26/211325 Last Action: Continued Melatonin (Melatonin) 5 Mg Tablet, 10 MG PO HS PRN for INSOMNIA, (Reported) Entered as Reported by: REAGAN SY on 06/26/211325 Last Action: Converted Ondansetron HCl (Ondansetron HCl) 2 Mg/1 Ml Vial, 4 MG IV Q6H PRN for NAUSEA/VOMITING-1ST LINE, (Reported) Entered as Reported by: REAGAN SY on 06/26/211325 Last Action: Converted Oxycodone HCl/Acetaminophen (Oxycodone-Acetaminophen 5-325) 1 Each Tablet, 1 EACH PO Q4H PRN for PAIN-MODERATE (5-7), (Reported) Entered as Reported by: REAGAN SY on 06/26/211325 Last Action: Continued Pantoprazole Sodium (Pantoprazole Sodium) 40 Mg Tablet.dr, 40 MG PO DAILY, (Reported) Entered as Reported by: REAGAN SY on 06/26/211325 Last Action: Continued Polyethylene Glycol 3350 (Miralax) 17 Gm Powd.pack, 17 GM PO DAILY PRN for CONSTIPATION-2ND LINE, (Reported) Entered as Reported by: REAGAN SY on 06/26/211325 Last Action: Continued Trazodone HCl (Trazodone HCl) 50 Mg Tablet, 50 MG PO HS, (Reported) Entered as Reported by: REAGAN SY on 06/26/211325 Last Action: Continued Exam Vital Signs Vital Signs Date Time Temp Pulse Resp B/P (MAP) Pulse Ox O2 Delivery O2 Flow Rate FiO2 06/27/21 09:00 96 Nasal Cannula 3.00 06/27/21 08:00 36.2 79 20 153/70 (97) Physical Exam General: Alert. No acute distress. Well nourished and appears stated age. Eye: Extraocular movements are intact. Conjunctivae are clear. There are no xanthelasma. HENT: Normocephalic. Atraumatic. Carotid pulsations 2/2 without bruits. Neck: Jugular venous pressure does not appear elevated. No thyromegaly appreciated. Respiratory: Lungs are clear to auscultation. Respirations are non-labored. Breath sounds are equal. Symmetrical chest wall expansion. Cardiovascular: Normal rate. Iregular rhythm. No murmur. No gallop. Point of maximal impulse is not appear displaced. Good pulses equal in all extremities. 2+ bilateral pretibial edema. Gastrointestinal: Soft. Normal bowel sounds. Skin: Skin turgor is normal. There is no pallor. Musculoskeletal: No kyphosis or scoliosis appreciated. Neurologic: Alert and oriented to person, place, time. Cranial nerves 3-12 a ppear grossly intact. The patient has good motor tone strength in the upper and lower extremities bilaterally. Psychiatric: Cooperative. Appropriate mood & affect. Labs Laboratory Tests Test 06/26/21 20:18 06/27/21 05:02 06/27/21 06:20 06/27/21 11:04 Range/Units Glucometer 230 H 103 139 H 70-110 MG/DL White Blood Count 4.8 4.3-11.0 10^3/uL Red Blood Count 3.16 L 4.30-5.52 10^6/uL Hemoglobin 9.5 L 13.3-17.7 g/dL Hematocrit 30 L 40-54 % Mean Corpuscular Volume 96 80-99 fL Mean Corpuscular Hemoglobin 30 25-34 pg Mean Corpuscular Hemoglobin Concent 31 L 32-36 g/dL Red Cell Distribution Width 15.7 H 10.0-14.5 % Platelet Count 140 130-400 10^3/uL Mean Platelet Volume 9.5 9.0-12.2 fL Immature Granulocyte % (Auto) 1 % Neutrophils (%) (Auto) 55 42-75 % Lymphocytes (%) (Auto) 28 12-44 % Monocytes (%) (Auto) 10 0-12 % Eosinophils (%) (Auto) 5 0-10 % Basophils (%) (Auto) 1 0-10 % Neutrophils # (Auto) 2.7 1.8-7.8 10^3/uL Lymphocytes # (Auto) 1.3 1.0-4.0 10^3/uL Monocytes # (Auto) 0.5 0.0-1.0 10^3/uL Eosinophils # (Auto) 0.3 0.0-0.3 10^3/uL Basophils # (Auto) 0.0 0.0-0.1 10^3/uL Immature Granulocyte # (Auto) 0.0 0.0-0.1 10^3/uL Sodium Level 139 135-145 MMOL/L Potassium Level 4.0 3.6-5.0 MMOL/L Chloride Level 100 98-107 MMOL/L Carbon Dioxide Level 25 21-32 MMOL/L Anion Gap 14 5-14 MMOL/L Blood Urea Nitrogen 26 H 7-18 MG/DL Creatinine 2.38 H 0.60-1.30 MG/DL Estimat Glomerular Filtration Rate 29 BUN/Creatinine Ratio 11 Glucose Level 119 H 70-105 MG/DL Calcium Level 8.8 8.5-10.1 MG/DL Corrected Calcium 9.3 8.5-10.1 MG/DL Total Bilirubin 0.7 0.1-1.0 MG/DL Aspartate Amino Transf (AST/SGOT) 16 5-34 U/L Alanine Aminotransferase (ALT/SGPT) 17 0-55 U/L Alkaline Phosphatase 100 40-136 U/L Total Protein 6.4 6.4-8.2 GM/DL Albumin 3.4 3.2-4.5 GM/DL ECG Impression ECG Comment Electrocardiogram from earlier this morning on 06/27/2021 shows atrial fibrillation with a ventricular rate of 87 bpm with left anterior hemiblock and right bundle branch block. Diagnosis/Problems Diagnosis/Problems (1) Persistent atrial fibrillation Assessment & Plan: From his description, he underwent a cardioversion at the outside hospital but today he is in atrial fibrillation. His heart rate is controlled with amiodarone and carvedilol. I do not see any urgent need to have him undergo cardioversion at this point in time. He is on the lower dose of Eliquis and the outside records show that the dose was reduced due to his poor renal function. However, for Eliquis, dose reduction requires 2 out of 3 factors which include creatinine above 1.5, age over 80, or weight less than 60 kg. The patient only has 1 of these factors. Therefore, I will change the apixaban over to 5 mg twice daily. (2) Coronary artery disease involving [place] coronary artery with angina pectoris Assessment & Plan: He is not having any typical angina during his physical therapy. He is not taking aspirin because he is on apixaban due to the atrial fibrillation. For unclear reasons, he is also on clopidogrel. This may need to be addressed by his regular outside geothermal operations engineer following discharge. Dual pathway inhibition, particularly with clopidogrel is not necessarily indicated unless the patient had a recent coronary stent or acute coronary syndrome. I recommend he continue on carvedilol and statin medication. (3) Chronic heart failure with preserved ejection fraction (HFpEF) Assessment & Plan: He reports a history of heart failure and was never told he had a low ejection fraction. He takes furosemide at home but presumably due to the acute kidney injury, this was stopped at the outside facility. He does have a fair amount of peripheral edema. I will obtain a follow-up metabolic panel in the morning and if his kidney function is stable, we could consider restarting low-dose diuretic. In the interim, he should continue with compression stockings. (4) Primary hypertension Assessment & Plan: We will continue carvedilol and adjust if needed. (5) Mixed hyperlipidemia Assessment & Plan: Continue atorvastatin. (6) Acute kidney injury superimposed on chronic kidney disease Assessment & Plan: I do not have a record of his baseline renal function. I wi ll obtain a follow-up metabolic panel tomorrow and then determine whether or not we can start him on diuretic for the chronic heart failure. KOLBY MAGALLANES JR, MD Jun 27, 2021 13:55
[2021-06-27 19:51] VITALS: BP 126/60
[2021-06-27] MEDS ORDERED: PATIENT MAY USE OWN MED,SINGLE MED PO SCH (21:00)
[2021-06-27] MEDS: traZODone 50 MG (DESYREL) TAB PO SCH (21:51)
[2021-06-27] MEDS: [UNRECOGNIZED DRUG - REMARK] TOP SCH (21:54)
[2021-06-28] MEDS: oxyCODONE/APAP 5/325MG (PERCOCET 5) TABLET PO PRN ×3 (00:30→19:11)
[2021-06-28] MEDS: inSUlin ASPART (NovoLOG) 1 UNIT/0.01 ML (CHARGE PER UNIT) SC SCH ×4 (05:21→21:27)
[2021-06-28 06:04] LABS: POTASSIUM 3.8 MMOL/L (3.6-5.0)
[2021-06-28 06:05] LABS: CALCIUM 8.9 MG/DL (8.5-10.1)
[2021-06-28 06:10] LABS: CREATININE SERUM 2.3 MG/DL (0.60-1.30)
--- NOTE | 2021-06-28 06:53 | PM&R Progress Note ---
Subjective HPI/CC On Admission Date Seen by Provider: Jun 28, 2021 Time Seen by Provider: 12:00 Subjective/Events-last exam 06/28/2021: Patient doing well Walking around with assistance We will discontinue Najera catheter tomorrow Check meds labs Blood sugars good 06/27/2021: Patient doing very well Settling in well Bowels moved today Slept really well last night for the first time in weeks EKG obtained showing atrial fibrillation Dr. Sumner will consult Kidney function stable Review of Systems General: Fatigue, Malaise Objective Exam Vital Signs Vital Signs Date Time Temp Pulse Resp B/P (MAP) Pulse Ox O2 Delivery O2 Flow Rate FiO2 06/28/21 21:15 99 Nasal Cannula 3.00 06/28/21 19:40 36.4 85 18 130/63 (85) Capillary Refill : General Appearance: No Apparent Distress, WD/WN, Chronically ill, Obese HEENT: PERRL/EOMI, Normal ENT Inspection, Pharynx Normal Neck: Full Range of Motion, Normal Inspection, Non Tender, Supple, Carotid Bruit Respiratory: Chest Non Tender, Lungs Clear, Normal Breath Sounds, No Accessory Muscle Use, No Respiratory Distress Cardiovascular: Regular Rate, Rhythm, No Edema, No Gallop, No JVD, No Murmur, Normal Peripheral Pulses Gastrointestinal: Normal Bowel Sounds, No Organomegaly, No Pulsatile Mass, Non Tender, Soft Back: Normal Inspection, No CVA Tenderness, No Vertebral Tenderness Extremity: Normal Capillary Refill, Normal Inspection, Normal Range of Motion, Non Tender, No Calf Tenderness, No Pedal Edema Neurologic/Psychiatric: Alert, Oriented x3, No Motor/Sensory Deficits, Normal Mood/Affect, Abnormal Gait, Motor Weakness (Generalized 3/5) Skin: Normal Color, Warm/Dry Lymphatic: No Adenopathy Results/Procedures Lab Laboratory Tests 06/28/21 05:45 Patient resulted labs reviewed. FIM Transfers Therapy Code Descriptions/Definitions Functional [place] Measure: 0=Not Assessed/NA 4=Minimal Assistance 1=Total Assistance 5=Supervision or Setup 2=Maximal Assistance 6=Modified [place] 3=Moderate Assistance 7=Complete IndependenceSCALE: Activities may be completed with or without assistive devices. 5-Httoffwped-trbwsai completes the activity by him/herself with no assistance from a helper. 5-Set-up or Clean-up Assistance-helper sets up or cleans up; patient completes activity. [place] assists only prior to or following the activity. 4-Supervision or Touching Assistance-helper provides verbal cues and/or touching/steadying and/or contact guard assistance as patient completes activity. Assistance may be provided throughout the activity or intermittently. 3-Partial/Moderate Assistance-helper does LESS THAN HALF the effort. [place] lifts, holds or supports trunk or limbs, but provides less than half the effort. 2-Substantial/Maximal Assistance-helper does MORE THAN HALF the effort. [place] lifts or holds trunk or limbs and provides more than half the effort. 5-Iwlpoqahe-jvdiet does ALL the effort. Patient does none of the effort to complete the activity. Or, the assistance of 2 or more helpers is required for the patient to complete the activity. If activity was not attempted, code reason: 7-Patient Refused. 9-Not Applicable-not attempted and the patient did not perform the activity before the current illness, exacerbation or injury. 10-Not Attempted due to Environmental Limitations-(lack of equipment, weather restraints, etc.). 88-Not Attempted due to Medical Conditions or Safety Concerns. Roll Left to Right (QC): 4 Sit to Lying (QC): 4 Sit to Stand (QC): 4 Chair/Xyh-ip-Bunip Xfer(QC): 4 Car Transfer (QC): 3 Gait Training Does the Patient Walk?: Yes Distance: 150' x 1 100' x 1 Walk 10 feet (QC): 4 Walk 50 ft with 2 Turns(QC): 4 Walk 150 ft (QC): 4 Walking 10ft/uneven surface-QC: 88 Gait Persons Needed: 1 Gait Assistive Device: FWW Wheelchair Training Does the Pt Use a Wheelchair?: No Wheel 50 ft with 2 turns (QC): 9 Wheel 150 ft (QC): 9 Stair Training 1 Step (curb) (QC): 88 4 Steps (QC): 88 12 Steps (QC): 88 Balance Picking up an Object (QC): 4 (CGA using lump room supervisor) ADL-Treatment Eating (QC): 6 Oral Hygiene (QC): 3 (Min A with rinsing per pt report) Shower/Bathe Self (QC): 3 (Min A. Assist with BLE lower legs/feet and buttocks. Pt washed all other parts seated.) Upper Body Dressing (QC): 5 (set up with box puller shirt) Lower Body Dressing (QC): 2 (Max a with threading and assist with pant hike) On/Off Footwear (QC): 2 Toileting Hygiene (QC): 2 (max A with pant hike and assistance with hygiene) Assessment/Plan Assessment and Plan Assess & Plan/Chief Complaint Assessment: Critical illness myopathy Recent new onset atrial fibrillation with RVR now normal sinus rhythm on amiodarone and Coreg Diabetes Hypertension Hyperlipidemia COPD CHF Chronic kidney disease stage III CAD previous bypass GERD HERMINIO Najera catheter in place Plan: Rehab protocol Restarted all meds from [place] Supportive care 06/27/2021: Supportive care DC Najera catheter Tuesday in case urinary retention occurs and urology will be available 06/28/2021: Supportive care DC catheter tomorrow (1) Persistent atrial fibrillation Assessment & Plan: From his description, he underwent a cardioversion at the outside hospital but today he is in atrial fibrillation. His heart rate is controlled with amiodarone and carvedilol. I do not see any urgent need to have him undergo cardioversion at this point in time. He is on the lower dose of Eliquis and the outside records show that the dose was reduced due to his poor renal function. However, for Eliquis, dose reduction requires 2 out of 3 factors which include creatinine above 1.5, age over 80, or weight less than 60 kg. The patient only has 1 of these factors. Therefore, I will change the apixaban over to 5 mg twice daily. 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 He is not taking aspirin because he is on apixaban due to the atrial fibrillation. For unclear reasons, he is also on clopidogrel. This may need to be addressed by his regular outside psychological aide following discharge. Dual pathway inhibition, particularly with clopidogrel is not necessarily indicated unless the patient had a recent coronary stent or acute coronary syndrome. I re commend he continue on carvedilol and statin medication. (3) Chronic heart failure with preserved ejection fraction (HFpEF) Assessment & Plan: He reports a history of heart failure and was never told he had a low ejection fraction. He takes furosemide at home but presumably due to the acute kidney injury, this was stopped at the outside facility. He does have a fair amount of peripheral edema. I will obtain a follow-up metabolic panel in the morning and if his kidney function is stable, we could consider restarting low-dose diuretic. In the interim, he should continue with compression stockings. (4) Primary hypertension Assessment & Plan: We will continue carvedilol and adjust if needed. (5) Mixed hyperlipidemia Assessment & Plan: Continue atorvastatin. (6) Acute kidney injury superimposed on chronic kidney disease Assessment & Plan: I do not have a record of his baseline renal function. I will obtain a follow-up metabolic panel tomorrow and then determine whether or not we can start him on diuretic for the chronic heart failure. CARLENE BYRNE DO Jun 28, 2021 06:53
[2021-06-28 07:30] VITALS: BP 111/58
[2021-06-28] MEDS: APIXABAN 2.5 MG (ELIQUIS) TABLET PO SCH ×2 (07:47→21:26)
[2021-06-28] MEDS: PANTOPRAZOLE 40 MG (PROTONIX) TAB PO SCH (07:47)
[2021-06-28] MEDS: CLOPIDOGREL 75 MG (PLAVIX) TABLET PO SCH (07:47)
[2021-06-28] MEDS: AMIODARONE 200 MG (CORDARONE) TAB PO SCH (07:47)
[2021-06-28] MEDS: polyethylene glycoL POWDER 17 GM (MIRALAX) PACK PO SCH ×2 (08:18→21:28)
[2021-06-28] MEDS: DOCUSATE SODIUM 100 MG (COLACE) CAP PO SCH ×2 (08:18→21:28)
[2021-06-28] MEDS: SENNA W/DOCUSATE (SENOKOT S) TABLET PO SCH ×2 (08:18→21:29)
--- NOTE | 2021-06-28 13:22 | Cardiology Progress Note ---
Progress Note-Cardiology Events since last exam Date Seen by Provider: Jun 28, 2021 Time Seen by Provider: 13:21 Events since last exam I am following him due to coronary artery disease and probable acute on chronic heart failure with preserved ejection fraction. He continues to have a significant amount of peripheral edema. He denies chest discomfort, dyspnea at rest, palpitations, or syncope. Certain portions of this document may have been dictated utilizing voice recognition technology. Inherent to this technology, typographical and grammatical errors may exist. As much as I am diligent to identify and correct these mistakes, some errors may remain in the document. Vitals Last set of Vitals Signs Vital Signs 06/28/21 06/28/21 07:30 08:17 Temp 36.2 Pulse 84 Resp 20 B/P (MAP) 111/58 (75) Pulse Ox 97 O2 Delivery Nasal Cannula O2 Flow Rate 3.00 Labs Labs Laboratory Tests 06/28/21 05:45 Exam Vital Signs Vital Signs Date Time Temp Pulse Resp B/P (MAP) Pulse Ox O2 Delivery O2 Flow Rate FiO2 06/28/21 08:17 Nasal Cannula 3.00 06/28/21 07:30 36.2 84 20 111/58 (75) 97 Physical Exam General: Alert. No acute distress. Eye: No xanthelasma. HENT: Normocephalic. Neck: Jugular venous pressure does not appear elevated. Respiratory: Lungs are clear to auscultation. Respirations are non-labored. Breath sounds are equal. Symmetrical chest wall expansion. Cardiovascular: Normal rate. Regular rhythm. No murmur. No gallop. 2+ bilateral pretibial edema. Gastrointestinal: Soft. Normal bowel sounds. Skin: Warm. Dry. Neurologic: Alert and oriented to person, place, time. Cranial nerves 3-11 grossly intact. Psychiatric: Cooperative. Appropriate mood & affect. Labs Laboratory Tests Test 06/27/21 20:11 06/28/21 05:10 06/28/21 05:45 06/28/21 10:46 Range/Units Glucometer 190 H 80 164 H 70-110 MG/DL Sodium Level 140 135-145 MMOL/L Potassium Level 3.8 3.6-5.0 MMOL/L Chloride Level 102 98-107 MMOL/L Carbon Dioxide Level 25 21-32 MMOL/L Anion Gap 13 5-14 MMOL/L Blood Urea Nitrogen 24 H 7-18 MG/DL Creatinine 2.30 H 0.60-1.30 MG/DL Estimat Glomerular Filtration Rate 30 BUN/Creatinine Ratio 10 Glucose Level 92 70-105 MG/DL Calcium Level 8.9 8.5-10.1 MG/DL Test 06/28/21 15:14 Range/Units Glucometer 156 H 70-110 MG/DL Diagnosis/Problems Diagnosis/Problems (1) Chronic heart failure with preserved ejection fraction (HFpEF) Assessment & Plan: He reports a history of heart failure and was never told he had a low ejection fraction. He takes furosemide at home but presumably due to the acute kidney injury, this was stopped at the outside facility. He does have a fair amount of peripheral edema. His kidney function is stable, so I will restart low-dose diuretic. He should continue with compression stockings. We will need to watch his renal function closely. I have ordered a daily metabolic panel. (2) Persistent atrial fibrillation Assessment & Plan: From his description, he underwent a cardioversion at the outside hospital but he is back in atrial fibrillation. His heart rate is controlled with amiodarone and carvedilol. I do not see any urgent need to have him undergo cardioversion at this point in time. He is on the lower dose of [place] iquis and the outside records show that the dose was reduced due to his poor renal function. However, for Eliquis, dose reduction requires 2 out of 3 factors which include creatinine above 1.5, age over 80, or weight less than 60 kg. The patient only has 1 of these factors. Therefore, I changed the apixaban over to 5 mg twice daily. I recommend we continue Amiodarone. 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 He is not taking aspirin because he is on apixaban due to the atrial fibrillation. For unclear reasons, he is also on clopidogrel. This may need to be addressed by his regular outside boiler/chiller operator following discharge. Dual pathway inhibition, particularly with clopidogrel, is not necessarily indicated unless the patient had a recent coronary stent or acute coronary syndrome. I recommend he continue on carvedilol and statin medication. (4) Primary hypertension Assessment & Plan: His blood pressure is reasonably well controlled with the present dose of beta-amrit. (5) Mixed hyperlipidemia Assessment & Plan: Continue atorvastatin. (6) Acute kidney injury superimposed on chronic kidney disease Assessment & Plan: I do not have a record of his baseline renal function. As a edward, his renal function appears to have stabilized. KOLBY MAGALLANES JR, MD Jun 28, 2021 13:22
[2021-06-28] MEDS ORDERED: BUMETANIDE 1 MG/4 ML (BUMEX) VIAL IV NR (13:30)
[2021-06-28] MEDS ORDERED: BUMETANIDE 1 MG (BUMEX) TAB PO NR (13:30)
[2021-06-28 19:40] VITALS: BP 130/63
[2021-06-28] MEDS: traZODone 50 MG (DESYREL) TAB PO SCH (21:26)
[2021-06-28] MEDS: [UNRECOGNIZED DRUG - REMARK] TOP SCH (21:28)
[2021-06-29] MEDS: inSUlin ASPART (NovoLOG) 1 UNIT/0.01 ML (CHARGE PER UNIT) SC SCH ×4 (05:48→21:26)
[2021-06-29 06:46] LABS: BASOPHILS % (AUTO) 1 % (0-10); EOSINOPHILS # (AUTO) 0.3 10^3/uL (0.0-0.3); EOSINOPHILS % (AUTO) 6 % (0-10); HEMATOCRIT 30 % (40-54); HEMOGLOBIN 9.5 g/dL (13.3-17.7); LYMPHOCYTES # (AUTO) 1.4 10^3/uL (1.0-4.0); LYMPHOCYTES % (AUTO) 33 % (12-44); MEAN CORPUSCULAR HEMOGLOBIN 30 pg (25-34); MEAN CORPUSCULAR HGB CONC 32 g/dL (32-36); MEAN CORPUSCULAR VOLUME 95 fL (80-99); MEAN PLATELET VOLUME 9.5 fL (9.0-12.2); MONOCYTES # (AUTO) 0.4 10^3/uL (0.0-1.0); MONOCYTES % (AUTO) 9 % (0-12); NEUTROPHILS # (AUTO) 2.2 10^3/uL (1.8-7.8); NEUTROPHILS % (AUTO) 50 % (42-75); PLATELET COUNT 146 10^3/uL (130-400); WHITE BLOOD COUNT 4.3 10^3/uL (4.3-11.0)
[2021-06-29 06:56] LABS: ALBUMIN 3.5 GM/DL (3.2-4.5); POTASSIUM 3.8 MMOL/L (3.6-5.0)
[2021-06-29 06:57] LABS: CALCIUM 8.7 MG/DL (8.5-10.1)
[2021-06-29 06:58] LABS: TOTAL PROTEIN 6.4 GM/DL (6.4-8.2)
[2021-06-29 07:00] LABS: BILIRUBIN,TOTAL 0.7 MG/DL (0.1-1.0)
[2021-06-29 07:02] LABS: CREATININE SERUM 2.53 MG/DL (0.60-1.30)
[2021-06-29 07:38] VITALS: BP 124/61
--- NOTE | 2021-06-29 07:46 | PM&R Progress Note ---
Subjective HPI/CC On Admission Date Seen by Provider: Jun 29, 2021 Time Seen by Provider: 09:00 Subjective/Events-last exam 06/29/2021: Pt is doing really well Discontinued the cath today and he is able to void a little bit Urology will be consulted just in case he has retention Checked meds and labs Overall very stable 06/28/2021: Patient doing well Walking around with assistance We will discontinue Najera catheter tomorrow Check meds labs Blood sugars good 06/27/2021: Patient doing very well Settling in well Bowels moved today Slept really well last night for the first time in weeks EKG obtained showing atrial fibrillation Dr. Sumner will consult Kidney function stable Review of Systems General: Fatigue, Malaise Genitourinary: Retention Objective Exam Vital Signs Vital Signs Date Time Temp Pulse Resp B/P (MAP) Pulse Ox O2 Delivery O2 Flow Rate FiO2 06/29/21 21:00 Nasal Cannula 3.00 06/29/21 20:00 36.2 81 20 128/63 (84) 97 Capillary Refill : General Appearance: No Apparent Distress, WD/WN, Chronically ill, Obese HEENT: PERRL/EOMI, Normal ENT Inspection, Pharynx Normal Neck: Full Range of Motion, Normal Inspection, Non Tender, Supple, Carotid Bruit Respiratory: Chest Non Tender, Lungs Clear, Normal Breath Sounds, No Accessory Muscle Use, No Respiratory Distress Cardiovascular: Regular Rate, Rhythm, No Edema, No Gallop, No JVD, No Murmur, Normal Peripheral Pulses Gastrointestinal: Normal Bowel Sounds, No Organomegaly, No Pulsatile Mass, Non Tender, Soft Back: Normal Inspection, No CVA Tenderness, No Vertebral Tenderness Extremity: Normal Capillary Refill, Normal Inspection, Normal Range of Motion, Non Tender, No Calf Tenderness, No Pedal Edema Neurologic/Psychiatric: Alert, Oriented x3, No Motor/Sensory Deficits, Normal Mood/Affect, Abnormal Gait, Motor Weakness (Generalized 3/5) Skin: Normal Color, Warm/Dry Lymphatic: No Adenopathy Results/Procedures Lab Laboratory Tests 06/29/21 06:21 Patient resulted labs reviewed. FIM Transfers Therapy Code Descriptions/Definitions Functional [place] Measure: 0=Not Assessed/NA 4=Minimal Assistance 1=Total Assistance 5=Supervision or Setup 2=Maximal Assistance 6=Modified [place] 3=Moderate Assistance 7=Complete IndependenceSCALE: Activities may be completed with or without assistive devices. 6-Msdvvpevqj-xegqqvj completes the activity by him/herself with no assistance from a helper. 5-Set-up or Clean-up Assistance-helper sets up or cleans up; patient completes activity. [place] assists only prior to or following the activity. 4-Supervision or Touching Assistance-helper provides verbal cues and/or touching/steadying and/or contact guard assistance as patient completes activity. Assistance may be provided throughout the activity or intermittently. 3-Partial/Moderate Assistance-helper does LESS THAN HALF the effort. [place] lifts, holds or supports trunk or limbs, but provides less than half the effort. 2-Substantial/Maximal Assistance-helper does MORE THAN HALF the effort. [place] lifts or holds trunk or limbs and provides more than half the effort. 1-Ppswportj-bdkehr does ALL the effort. Patient does none of the effort to complete the activity. Or, the assistance of 2 or more helpers is required for the patient to complete the activity. If activity was not attempted, code reason: 7-Patient Refused. 9-Not Applicable-not attempted and the patient did not perform the activity before the current illness, exacerbation or injury. 10-Not Attempted due to Environmental Limitations-(lack of equipment, weather restraints, etc.). 88-Not Attempted due to Medical Conditions or Safety Concerns. Roll Left to Right (QC): 4 Sit to Lying (QC): 4 Sit to Stand (QC): 4 Chair/Rgd-zw-Vwwwq Xfer(QC): 4 Car Transfer (QC): 3 Gait Training Does the Patient Walk?: Yes Distance: 150' x 1 100' x 1 Walk 10 feet (QC): 4 Walk 50 ft with 2 Turns(QC): 4 Walk 150 ft (QC): 4 Walking 10ft/uneven surface-QC: 88 Gait Persons Needed: 1 Gait Assistive Device: FWW Wheelchair Training Does the Pt Use a Wheelchair?: No Wheel 50 ft with 2 turns (QC): 9 Wheel 150 ft (QC): 9 Stair Training 1 Step (curb) (QC): 88 4 Steps (QC): 88 12 Steps (QC): 88 Balance Picking up an Object (QC): 4 (CGA using wood fence erector) ADL-Treatment Eating (QC): 6 Oral Hygiene (QC): 3 (Min A with rinsing per pt report) Shower/Bathe Self (QC): 3 (Min A. Assist with BLE lower legs/feet and buttocks. Pt washed all other parts seated.) Upper Body Dressing (QC): 5 (set up with stick puller shirt) Lower Body Dressing (QC): 2 (Max a with threading and assist with pant hike) On/Off Footwear (QC): 2 Toileting Hygiene (QC): 2 (max A with pant hike and assistance with hygiene) Assessment/Plan Assessment and Plan Assess & Plan/Chief Complaint Assessment: Critical illness myopathy Recent new onset atrial fibrillation with RVR now normal sinus rhythm on amiodarone and Coreg Diabetes Hypertension Hyperlipidemia COPD CHF Chronic kidney disease stage III CAD previous bypass GERD HERMINIO Najera catheter in place Plan: Rehab protocol Restarted all meds from [place] Supportive care 06/27/2021: Supportive care DC Najera catheter Tuesday in case urinary retention occurs and urology will be available 06/28/2021: Supportive care DC catheter tomorrow 06/29/2021: DC catheter Urology consultation (1) Chronic heart failure with preserved ejection fraction (HFpEF) Assessment & Plan: He reports a history of heart failure and was never told he had a low ejection fraction. He takes furosemide at home but presumably due to the acute kidney injury, this was stopped at the outside facility. He does have a fair amount of peripheral edema. His kidney function is stable, so I will restart low-dose diuretic. He should continue with compression stockings. We will need to watch his renal function closely. I have ordered a daily metabolic panel. (2) Persistent atrial fibrillation Assessment & Plan: From his description, he underwent a cardioversion at the outside hospital but he is back in atrial fibrillation. His heart rate is controlled with amiodarone and carvedilol. I do not see any urgent need to have him undergo cardioversion at this point in time. He is on the lower dose of Eliquis and the outside records show that the dose was reduced due to his poor renal function. However, for Eliquis, dose reduction requires 2 out of 3 factor s which include creatinine above 1.5, age over 80, or weight less than 60 kg. The patient only has 1 of these factors. Therefore, I changed the apixaban over to 5 mg twice daily. I recommend we continue Amiodarone. 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 He is not taking aspirin because he is on apixaban due to the atrial fibrillation. For unclear reasons, he is also on clopidogrel. This may need to be addressed by his regular outside phosphatic fertilizer supervisor following discharge. Dual pathway inhibition, particularly with clopidogrel, is not necessarily indicated unless the patient had a recent coronary stent or acute coronary syndrome. I recommend he continue on carvedilol and statin medication. (4) Primary hypertension Assessment & Plan: His blood pressure is reasonably well controlled with the present dose of beta-amrit. (5) Mixed hyperlipidemia Assessment & Plan: Continue atorvastatin. (6) Acute kidney injury superimposed on chronic kidney disease Assessment & Plan: I do not have a record of his baseline renal function. As above, his renal function appears to have stabilized. CARLENE BYRNE DO Jun 29, 2021 07:46
[2021-06-29] MEDS: CLOPIDOGREL 75 MG (PLAVIX) TABLET PO SCH (08:31)
[2021-06-29] MEDS: DOCUSATE SODIUM 100 MG (COLACE) CAP PO SCH ×2 (08:32→21:14)
[2021-06-29] MEDS: APIXABAN 2.5 MG (ELIQUIS) TABLET PO SCH ×2 (08:32→21:15)
[2021-06-29] MEDS: PANTOPRAZOLE 40 MG (PROTONIX) TAB PO SCH (08:32)
[2021-06-29] MEDS: BUMETANIDE 1 MG (BUMEX) TAB PO SCH (08:32)
[2021-06-29] MEDS: AMIODARONE 200 MG (CORDARONE) TAB PO SCH (08:32)
[2021-06-29] MEDS: SENNA W/DOCUSATE (SENOKOT S) TABLET PO SCH ×2 (08:32→21:15)
[2021-06-29] MEDS: polyethylene glycoL POWDER 17 GM (MIRALAX) PACK PO SCH ×2 (08:37→21:21)
[2021-06-29] MEDS ORDERED: BUMETANIDE 1 MG/4 ML (BUMEX) VIAL IV SCH (09:00)
--- NOTE | 2021-06-29 10:02 | Occupational Ther Daily Note ---
OT Current Status-Daily Note Subjective Pt alert, sitting in recliner. Pt agrees to therapy. No c/o pain. Mental Status/Objective Patient Orientation: Person, Place, Time, Situation Attachments: Oxygen (3L) ADL-Treatment Pt agrees to shower. Pt independent with eating. Already has dentures soaked, declines anymore oral care. Pt ambulates to bathroom(CGA) and transfers to toilet using FWW, Min A for sit to stand. Able to manipulate clothing with CGA, assist needed for cleansing buttocks. Pt transferred into shower with CGA. Sitting on shower bench, pt able to cleanse all areas except feet and buttocks, assist to cleanse. Set up for upper body dressing. Able to thread feet into pants then CGA while pt hiked over hips. Pt used college president to doff socks and pants. Assist to don RAND hose. Pt educated on using sock aide to don socks, pt demonstrated understanding though needed min A to adjust when sock was not fully on foot. Sitting at sink, pt completed grooming (clinical judgment-independent with oral care). Pt then ambulated back to recliner using FWW. After session, pt sitting in recliner with call light/phone in reach. All needs met in room. Therapy Code Descriptions/Definitions Functional [place] Measure: 0=Not Assessed/NA 4=Minimal Assistance 1=Total Assistance 5=Supervision or Setup 2=Maximal Assistance 6=Modified [place] 3=Moderate Assistance 7=Complete IndependenceSCALE: Activities may be completed with or without assistive devices. 5-Jwbqamvoxd-xadavqy completes the activity by him/herself with no assistance from a helper. 5-Set-up or Clean-up Assistance-helper sets up or cleans up; patient completes activity. [place] assists only prior to or following the activity. 4-Supervision or Touching Assistance-helper provides verbal cues and/or touching/steadying and/or contact guard assistance as patient completes activity. Assistance may be provided throughout the activity or intermittently. 3-Partial/Moderate Assistance-helper does LESS THAN HALF the effort. [place] lifts, holds or supports trunk or limbs, but provides less than half the effort. 2-Substantial/Maximal Assistance-helper does MORE THAN HALF the effort. [place] lifts or holds trunk or limbs and provides more than half the effort. 8-Kmtdwhmiz-bbidek does ALL the effort. Patient does none of the effort to complete the activity. Or, the assistance of 2 or more helpers is required for the patient to complete the activity. If activity was not attempted, code reason: 7-Patient Refused. 9-Not Applicable-not attempted and the patient did not perform the activity befo re the current illness, exacerbation or injury. 10-Not Attempted due to Environmental Limitations-(lack of equipment, weather re straints, etc.). 88-Not Attempted due to Medical Conditions or Safety Concerns. Eating (QC): 6 Oral Hygiene (QC): 6 Shower/Bathe Self (QC): 3 Upper Body Dressing (QC): 5 Lower Body Dressing (QC): 4 On/Off Footwear: 3 Toileting Hygiene (QC): 3 Toilet Transfer (QC): 3 OT Short Term Goals Short Term Goals Time Frame: Jul 10, 2021 Toileting hygiene: 3 Shower/bathe self: 4 Lower body dressin Putting on/taking off footwear: 3 OT Nursing Home Goals Fruit Checker Goals Time Frame: Jul 24, 2021 Eating (QC): 6 Oral Hygiene (QC): 6 Toileting Hygiene (QC): 6 Shower/Bathe Self (QC): 6 Upper Body Dressing (QC): 6 Lower Body Dressing (QC): 6 On/Off Footwear (QC): 6 Additional Goals: 1-Demonstrate ADL Tasks, 2-Verbalize Understanding, 3-ImproveStrength/Queenie 1=Demonstrate adherence to instructed precautions during ADL tasks. 2=Patient will verbalize/demonstrate understanding of assistive devices/modifications for ADL. 3=Patient will improve strength/tolerance for activity to enable patient to perform ADL's. OT Education/Plan Problem List/Assessment Assessment: Decreased Activ Tolerance, Impaired Self-Care Skills Discharge Recommendations Plan/Recommendations: Continue POC Treatment Plan/Plan of Care Patient would benefit from OT for education, treatment and training to promote independence in ADL's, mobility, safety and/or upper extremity function for ADL's. Plan of Care: ADL Retraining, Functional Mobility, Group Exercise/Act as Ind, UE Funct Exercise/Act Treatment Duration: Jul 24, 2021 Frequency: At least 5 of 7 days/Wk (IRF) Estimated Hrs Per Day: 1.5 hours per day Agreement: Yes Rehab Potential: Good Time/GCodes Start Time: :30 Stop Time: 10:00 Total Time Billed (hr/min): 90 Billed Treatment Time 1 visit-ADL 6 (90 min) ROSA M NOVA Jun 29, 2021 10:02
--- NOTE | 2021-06-29 11:17 | Physical Therapy Daily Note ---
PT Daily Note-Current Subjective Patient in recliner pre tx, agrees to PT, has no complaints of pain. Appearance Patient in recliner post tx with nurse call, phone, tray, all needs met. Mental Status Patient Orientation: Person, Place, Situation Attachments: Oxygen Transfers SCALE: Activities may be completed with or without assistive devices. 3-Ztffxotiva-rvrfcnl completes the activity by him/herself with no assistance from a helper. 5-Set-up or Clean-up Assistance-helper sets up or cleans up; patient completes activity. [place] assists only prior to or following the activity. 4-Supervision or Touching Assistance-helper provides verbal cues and/or touching/steadying and/or contact guard assistance as patient completes activity. Assistance may be provided throughout the activity or intermittently. 3-Partial/Moderate Assistance-helper does LESS THAN HALF the effort. [place] lifts, holds or supports trunk or limbs, but provides less than half the effort. 2-Substantial/Maximal Assistance-helper does MORE THAN HALF the effort. [place] lifts or holds trunk or limbs and provides more than half the effort. 5-Xrlgqhthk-zexxhi does ALL the effort. Patient does none of the effort to complete the activity. Or, the assistance of 2 or more helpers is required for the patient to complete the activity. If activity was not attempted, code reason: 7-Patient Refused. 9-Not Applicable-not attempted and the patient did not perform the activity before the current illness, exacerbation or injury. 10-Not Attempted due to Environmental Limitations-(lack of equipment, weather restraints, etc.). 88-Not Attempted due to Medical Conditions or Safety Concerns. Sit to Stand (QC): 4 Chair/Luq-zv-Jgdex Xfer(QC): 4 cues for hand placement with sit <-> stand occasionally Gait Training Does the Patient Walk?: Yes Distance: 120', 60'x2 Walk 10 feet (QC): 4 Walk 50 ft with 2 Turns(QC): 4 Gait Persons Needed: 1 Gait Assistive Device: FWW slow ambulation, patient very shaky when ambulating back to his room from the therapy gym, took [address] back with rest break in between Exercises Standing: Hip Abduction, Heel/toe raises, Marching Standing Reps: 15 LAQ alternating for 5 min NuStep Minutes: 15 NuStep Workload: 4 Treatments transfers, ambulation, functional strengthening Assessment Current Status: Fair Progress improved sit to stand, patient needs frequent rest breaks due to fatigue PT Short Term Goals Short Term Goals Time Frame: Jul 03, 2021 Roll Left & Right: 6 Sit to lyin Lying to sitting on side of be: 6 Sit to stand: 4 (CGA) Chair/aoz-fv-affqb transfer: 4 (SBA) Walk 10 feet: 4 (SBA) Walk 50 feet with two turns: 4 (SBA) PT Contact Lens Technician Goals Contact Lens Technician Goals PT Skilled Nursing Goals Time Frame: Jul 17, 2021 Roll Left & Right (QC): 6 Sit to Lying (QC): 6 Lying-Sitting on Side/Bed(QC): 6 Sit to Stand (QC): 4 (CGA) Chair/Tnl-lu-Rffab Xfer(QC): 6 Toilet Transfer (QC): 6 Car Transfer (QC): 4 (CGA) Does the Patient Walk: Yes Walk 10 feet (QC): 6 Walk 50ft with 2 Turns (QC): 6 Walk 150 ft (QC): 6 Walking 10ft on Uneven Surface: 6 1 Step (curb) (QC): 4 (CGA) 4 Steps (QC): 4 (CGA) 12 Steps (QC): 88 Picking up an Object (QC): 6 Wheel 50 feet with 2 turns (QC: 9 Wheel 150 feet: 9 PT Plan Problem List Problem List: Activity Tolerance, Functional Strength, Safety, Balance, Gait, Transfer, Bed Mobility, ROM Treatment/Plan Treatment Plan: Continue Plan of Care Treatment Plan: Bed Mobility, Education, Functional Activity [place]ie, Functional Strength, Group Therapy, Gait, Safety, Therapeutic Exercise, Transfers Treatment Duration: Jul 17, 2021 Frequency: At least 5 of 7 days/Wk (IRF) Estimated Hrs Per Day: 1.5 hours per day Patient and/or Family Agrees t: Yes Safety Risks/Education Patient Education: Gait Training, Transfer Techniques, Correct Positioning, Safety Issues Teaching Recipient: Patient Teaching Methods: Demonstration, Discussion Response to Teaching: Reinforcement Needed Time/GCodes Time In: 1000 Time Out: 1100 Total Billed Treatment Time: 60 Total Billed Treatment 1 visit EX 35' GT 25' MIGUEL ANGEL TIRADO PT Jun 29, 2021 11:17
[2021-06-29] MEDS: oxyCODONE/APAP 5/325MG (PERCOCET 5) TABLET PO PRN ×2 (12:16→18:19)
--- NOTE | 2021-06-29 15:40 | Physical Therapy Daily Note ---
PT Daily Note-Current Subjective Patient in recliner pre tx, agrees to PT, has no complaints of pain. Appearance Patient in recliner post tx with nurse call, phone, tray, all needs met. Mental Status Patient Orientation: Person, Place, Situation Attachments: Oxygen uses a knee sleeve on the right side Transfers SCALE: Activities may be completed with or without assistive devices. 2-Jlqponeghb-qwbaytv completes the activity by him/herself with no assistance from a helper. 5-Set-up or Clean-up Assistance-helper sets up or cleans up; patient completes activity. [place] assists only prior to or following the activity. 4-Supervision or Touching Assistance-helper provides verbal cues and/or touching/steadying and/or contact guard assistance as patient completes activity. Assistance may be provided throughout the activity or intermittently. 3-Partial/Moderate Assistance-helper does LESS THAN HALF the effort. [place] lifts, holds or supports trunk or limbs, but provides less than half the effort. 2-Substantial/Maximal Assistance-helper does MORE THAN HALF the effort. [place] lifts or holds trunk or limbs and provides more than half the effort. 6-Qsahllruy-dqpylj does ALL the effort. Patient does none of the effort to complete the activity. Or, the assistance of 2 or more helpers is required for the patient to complete the activity. If activity was not attempted, code reason: 7-Patient Refused. 9-Not Applicable-not attempted and the patient did not perform the activity before the current illness, exacerbation or injury. 10-Not Attempted due to Environmental Limitations-(lack of equipment, weather restraints, etc.). 88-Not Attempted due to Medical Conditions or Safety Concerns. Sit to Stand (QC): 4 Chair/Atc-fp-Aglhz Xfer(QC): 4 Gait Training Distance: 120', 60'x2 Walk 10 feet (QC): 4 Walk 50 ft with 2 Turns(QC): 4 Gait Assistive Device: FWW has to take a rest break mcc back to his room Exercises Seated Therapy Exercises: Ankle pumps, Long arc quads, Hip flexion, Hip abd/add (with ball and RTB) Treatments transfers, ambulation, LE strengthening Assessment Current Status: Fair Progress improving sit to stand PT Short Term Goals Short Term Goals Time Frame: Jul 03, 2021 Roll Left & Right: 6 Sit to lyin Lying to sitting on side of be: 6 Sit to stand: 4 (CGA) Chair/ycs-pn-zlgof transfer: 4 (SBA) Walk 10 feet: 4 (SBA) Walk 50 feet with two turns: 4 (SBA) PT Virtual Recruiter Goals Virtual Recruiter Goals PT Virtual Recruiter Goals Time Frame: Jul 17, 2021 Roll Left & Right (QC): 6 Sit to Lying (QC): 6 Lying-Sitting on Side/Bed(QC): 6 Sit to Stand (QC): 4 (CGA) Chair/Sqy-me-Pkkja Xfer(QC): 6 Toilet Transfer (QC): 6 Car Transfer (QC): 4 (CGA) Does the Patient Walk: Yes Walk 10 feet (QC): 6 Walk 50ft with 2 Turns (QC): 6 Walk 150 ft (QC): 6 Walking 10ft on Uneven Surface: 6 1 Step (curb) (QC): 4 (CGA) 4 Steps (QC): 4 (CGA) 12 Steps (QC): 88 Picking up an Object (QC): 6 Wheel 50 feet with 2 turns (QC: 9 Wheel 150 feet: 9 PT Plan Problem List Problem List: Activity Tolerance, Functional Strength, Safety, Balance, Gait, Transfer, Bed Mobility, ROM Treatment/Plan Treatment Plan: Continue Plan of Care Treatment Plan: Bed Mobility, Education, Functional Activity Queenie, Functional Strength, Group Therapy, Gait, Safety, Therapeutic Exercise, Transfers Treatment Duration: Jul 17, 2021 Frequency: At least 5 of 7 days/Wk (IRF) Estimated Hrs Per Day: 1.5 hours per day Patient and/or Family Agrees t: Yes Safety Risks/Education Patient Education: Gait Training, Transfer Techniques, Correct Positioning, Safety Issues Teaching Recipient: Patient Teaching Methods: Demonstration, Discussion Response to Teaching: Reinforcement Needed Time/GCodes Time In: 1510 Time Out: 1540 Total Billed Treatment Time: 30 Total Billed Treatment 1 visit EX 10' GT 20' MIGUEL ANGEL TIRADO PT Jun 29, 2021 15:40
[2021-06-29 20:00] VITALS: BP 128/63
[2021-06-29] MEDS: traZODone 50 MG (DESYREL) TAB PO SCH (21:15)
[2021-06-29] MEDS: [UNRECOGNIZED DRUG - REMARK] TOP SCH (21:16)
[2021-06-30] MEDS: oxyCODONE/APAP 5/325MG (PERCOCET 5) TABLET PO PRN ×4 (04:13→22:28)
[2021-06-30] MEDS: inSUlin ASPART (NovoLOG) 1 UNIT/0.01 ML (CHARGE PER UNIT) SC SCH ×4 (05:49→21:26)
--- NOTE | 2021-06-30 06:08 | PM&R Progress Note ---
Subjective HPI/CC On Admission Date Seen by Provider: Jun 30, 2021 Time Seen by Provider: 09:00 Subjective/Events-last exam 06/30/2021: Pt is voiding well status post catheter removal We will cancel Dr. Roy consultation Checked meds and labs Doing very well 06/29/2021: Pt is doing really well Discontinued the cath today and he is able to void a little bit Urology will be consulted just in case he has retention Checked meds and labs Overall very stable 06/28/2021: Patient doing well Walking around with assistance We will discontinue Najera catheter tomorrow Check meds labs Blood sugars good 06/27/2021: Patient doing very well Settling in well Bowels moved today Slept really well last night for the first time in weeks EKG obtained showing atrial fibrillation Dr. Sumner will consult Kidney function stable Review of Systems General: Fatigue, Malaise Pulmonary: Dyspnea Objective Exam Vital Signs Vital Signs Date Time Temp Pulse Resp B/P (MAP) Pulse Ox O2 Delivery O2 Flow Rate FiO2 06/30/21 22:59 Nasal Cannula 3.00 06/30/21 20:00 36.0 78 18 145/64 (91) 99 Capillary Refill : General Appearance: No Apparent Distress, WD/WN, Chronically ill, Obese HEENT: PERRL/EOMI, Normal ENT Inspection, Pharynx Normal Neck: Full Range of Motion, Normal Inspection, Non Tender, Supple, Carotid Bruit Respiratory: Chest Non Tender, Lungs Clear, Normal Breath Sounds, No Accessory Muscle Use, No Respiratory Distress Cardiovascular: Regular Rate, Rhythm, No Edema, No Gallop, No JVD, No Murmur, Normal Peripheral Pulses Gastrointestinal: Normal Bowel Sounds, No Organomegaly, No Pulsatile Mass, Non Tender, Soft Back: Normal Inspection, No CVA Tenderness, No Vertebral Tenderness Extremity: Normal Capillary Refill, Normal Inspection, Normal Range of Motion, Non Tender, No Calf Tenderness, No Pedal Edema Neurologic/Psychiatric: Alert, Oriented x3, No Motor/Sensory Deficits, Normal Mood/Affect, Abnormal Gait, Motor Weakness (Generalized 3/5) Skin: Normal Color, Warm/Dry Lymphatic: No Adenopathy Results/Procedures Lab Laboratory Tests 06/30/21 06:30 Patient resulted labs reviewed. FIM Transfers Therapy Code Descriptions/Definitions Functional [place] Measure: 0=Not Assessed/NA 4=Minimal Assistance 1=Total Assistance 5=Supervision or Setup 2=Maximal Assistance 6=Modified [place] 3=Moderate Assistance 7=Complete IndependenceSCALE: Activities may be completed with or without assistive devices. 3-Nciazxwoyp-nedwmsv completes the activity by him/herself with no assistance from a helper. 5-Set-up or Clean-up Assistance-helper sets up or cleans up; patient completes activity. [place] assists only prior to or following the activity. 4-Supervision or Touching Assistance-helper provides verbal cues and/or touching/steadying and/or contact guard assistance as patient completes activity. Assistance may be provided throughout the activity or intermittently. 3-Partial/Moderate Assistance-helper does LESS THAN HALF the effort. [place] lifts, holds or supports trunk or limbs, but provides less than half the effort. 2-Substantial/Maximal Assistance-helper does MORE THAN HALF the effort. [place] lifts or holds trunk or limbs and provides more than half the effort. 0-Arrrfkyrz-jspnln does ALL the effort. Patient does none of the effort to complete the activity. Or, the assistance of 2 or more helpers is required for the patient to complete the activity. If activity was not attempted, code reason: 7-Patient Refused. 9-Not Applicable-not attempted and the patient did not perform the activity before the current illness, exacerbation or injury. 10-Not Attempted due to Environmental Limitations-(lack of equipment, weather restraints, etc.). 88-Not Attempted due to Medical Conditions or Safety Concerns. Roll Left to Right (QC): 4 Sit to Lying (QC): 4 Sit to Stand (QC): 4 Chair/Com-wn-Aczwc Xfer(QC): 4 Car Transfer (QC): 3 Gait Training Does the Patient Walk?: Yes Distance: 120', 60'x2 Walk 10 feet (QC): 4 Walk 50 ft with 2 Turns(QC): 4 Walk 150 ft (QC): 4 Walking 10ft/uneven surface-QC: 88 Gait Persons Needed: 1 Gait Assistive Device: FWW Wheelchair Training Does the Pt Use a Wheelchair?: No Wheel 50 ft with 2 turns (QC): 9 Wheel 150 ft (QC): 9 Stair Training 1 Step (curb) (QC): 88 4 Steps (QC): 88 12 Steps (QC): 88 Balance Picking up an Object (QC): 4 (CGA using senior operations manager) ADL-Treatment Eating (QC): 6 Oral Hygiene (QC): 6 Shower/Bathe Self (QC): 3 Upper Body Dressing (QC): 5 Lower Body Dressing (QC): 4 On/Off Footwear (QC): 3 Toileting Hygiene (QC): 3 Toilet Transfer (QC): 3 Assessment/Plan Assessment and Plan Assess & Plan/Chief Complaint Assessment: Critical illness myopathy Recent new onset atrial fibrillation with RVR now normal sinus rhythm on amiodarone and Coreg Diabetes Hypertension Hyperlipidemia COPD CHF Chronic kidney disease stage III CAD previous bypass GERD HERMINIO Najera catheter in place now discontinued and voiding well Plan: Rehab protocol Restarted all meds from [place] Supportive care 06/27/2021: Supportive care DC Najera catheter Tuesday in case urinary retention occurs and urology will be available 06/28/2021: Supportive care DC catheter tomorrow 06/29/2021: DC catheter Urology consultation 06/30/2021: Voiding well so we will discontinue urology consultation Continue aggressive therapy (1) Chronic heart failure with preserved ejection fraction (HFpEF) Assessment & Plan: He reports a history of heart failure and was never told he had a low ejection fraction. He takes furosemide at home but presumably due to the acute kidney injury, this was stopped at the outside facility. He does have a fair amount of peripheral edema. His kidney function is stable, so I will restart low-dose diuretic. He should continue with compression stockings. We will need to watch his renal function closely. I have ordered a daily metabolic panel. (2) Persistent atrial fibrillation Assessment & Plan: From his description, he underwent a cardioversion at the outside hospital but he is back in atrial fibrillation. His heart rate is controlled with amiodarone and carvedilol. I do not see any urgent need to have him undergo cardioversion at this point in time. He is on the lower dose of Eliquis and the outside records show that the dose was reduced due to his poor renal function. However, for Eliquis, dose reduction requires 2 out of 3 factors which include creatinine above 1.5, age over 80, or weight less than 60 kg. The patient only has 1 of these factors. Therefore, I changed the apixaban over to 5 mg twice daily. I recommend we continue Amiodarone. 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 He is not taking aspirin because he is on apixaban due to the atrial fibrillation. For unclear reasons, he is also on clopidogrel. This may need to be addressed by his regular outside straw hat brusher following discharge. Dual pathway inhibition, particularly with clopidogrel, is not necessarily indicated unless the patient had a recent coronary stent or acute coronary syndrome. I recommend he continue on carvedilol and statin medication. (4) Primary hypertension Assessment & Plan: His blood pressure is reasonably well controlled with the present dose of beta-amrit. (5) Mixed hyperlipidemia Assessment & Plan: Continue atorvastatin. (6) Acute kidney injury superimposed on chronic kidney disease Assessment & Plan: I do not have a record of his baseline renal function. As above, his renal function appears to have stabilized. CARLENE BYRNE DO Jun 30, 2021 06:08
[2021-06-30 07:00] LABS: CALCIUM 8.6 MG/DL (8.5-10.1); CREATININE SERUM 2.5 MG/DL (0.60-1.30); POTASSIUM 3.7 MMOL/L (3.6-5.0)
[2021-06-30 07:42] VITALS: BP 151/67
--- NOTE | 2021-06-30 07:42 | Occupational Ther Daily Note ---
OT Current Status-Daily Note Subjective Pt alert, sitting in recliner. Pt agrees to therapy. Pt c/o being sore from yesterdays therapy, no other c/o. Mental Status/Objective Patient Orientation: Person, Place, Time, Situation Attachments: Oxygen (3L) ADL-Treatment Declines showering today since pt had shower yesterday. Independent with eating. Set up for donning/doffing socks and min A using sock aide to don RAND hoes. Pt then ambulated to sit at sink for oral care and grooming, independently. Therapy Code Descriptions/Definitions Functional [place] Measure: 0=Not Assessed/NA 4=Minimal Assistance 1=Total Assistance 5=Supervision or Setup 2=Maximal Assistance 6=Modified [place] 3=Moderate Assistance 7=Complete IndependenceSCALE: Activities may be completed with or without assistive devices. 0-Ivwiecyyai-awiwpjy completes the activity by him/herself with no assistance from a helper. 5-Set-up or Clean-up Assistance-helper sets up or cleans up; patient completes activity. [place] assists only prior to or following the activity. 4-Supervision or Touching Assistance-helper provides verbal cues and/or touching/steadying and/or contact guard assistance as patient completes activity. Assistance may be provided throughout the activity or intermittently. 3-Partial/Moderate Assistance-helper does LESS THAN HALF the effort. [place] lifts, holds or supports trunk or limbs, but provides less than half the effort. 2-Substantial/Maximal Assistance-helper does MORE THAN HALF the effort. [place] lifts or holds trunk or limbs and provides more than half the effort. 4-Qnppglceo-rizzej does ALL the effort. Patient does none of the effort to complete the activity. Or, the assistance of 2 or more helpers is required for the patient to complete the activity. If activity was not attempted, code reason: 7-Patient Refused. 9-Not Applicable-not attempted and the patient did not perform the activity before the current illness, exacerbation or injury. 10-Not Attempted due to Environmental Limitations-(lack of equipment, weather restraints, etc.). 88-Not Attempted due to Medical Conditions or Safety Concerns. Eating (QC): 6 Oral Hygiene (QC): 6 On/Off Footwear: 3 Other Treatment Pt ambulates with CGA using FWW to therapy gym. Skilled instruction for B UE theraband exercises using light resistance. 9 B UE exercises given to pt with instruction and minimal physical cues for correct technique, 1 set 10 reps. HEP and light resistance theraband given to pt for use in room and home. Pt then ambulated back to room to sit in recliner after therapy. Call light/phone in reach. All needs met in room. OT Short Term Goals Short Term Goals Time Frame: Jul 10, 2021 Toileting hygiene: 3 Shower/bathe self: 4 Lower body dressin Putting on/taking off footwear: 3 OT Trade Facilitator Goals [facility] Goals Time Frame: Jul 24, 2021 Eating (QC): 6 Oral Hygiene (QC): 6 Toileting Hygiene (QC): 6 Shower/Bathe Self (QC): 6 Upper Body Dressing (QC): 6 Lower Body Dressing (QC): 6 On/Off Footwear (QC): 6 Additional Goals: 1-Demonstrate ADL Tasks, 2-Verbalize Understanding, 3- ImproveStrength/Queenie 1=Demonstrate adherence to instructed precautions during ADL tasks. 2=Patient will verbalize/demonstrate understanding of assistive devices/modifications for ADL. 3=Patient will improve strength/tolerance for activity to enable patient to perform ADL's. OT Education/Plan Problem List/Assessment Assessment: Decreased Activ Tolerance, Decreased UE Strength, Impaired Self- Care Skills Discharge Recommendations Plan/Recommendations: Continue POC Treatment Plan/Plan of Care Patient would benefit from OT for education, treatment and training to promote independence in ADL's, mobility, safety and/or upper extremity function for ADL's. Plan of Care: ADL Retraining, Functional Mobility, Group Exercise/Act as Ind, UE Funct Exercise/Act Treatment Duration: Jul 24, 2021 Frequency: At least 5 of 7 days/Wk (IRF) Estimated Hrs Per Day: 1.5 hours per day Agreement: Yes Rehab Potential: Good Time/GCodes Start Time: 07:30 Stop Time: 09:00 Total Time Billed (hr/min): 90 Billed Treatment Time 1 visit-ADL 3 (45 min) EX 2 (30 min) FA 1 (15 min) ROSA M NOVA Jun 30, 2021 07:42
[2021-06-30] MEDS: BUMETANIDE 1 MG (BUMEX) TAB PO SCH (08:48)
[2021-06-30] MEDS: DOCUSATE SODIUM 100 MG (COLACE) CAP PO SCH ×2 (08:48→20:21)
[2021-06-30] MEDS: PANTOPRAZOLE 40 MG (PROTONIX) TAB PO SCH (08:49)
[2021-06-30] MEDS: CLOPIDOGREL 75 MG (PLAVIX) TABLET PO SCH (08:49)
[2021-06-30] MEDS: AMIODARONE 200 MG (CORDARONE) TAB PO SCH (08:49)
[2021-06-30] MEDS: APIXABAN 2.5 MG (ELIQUIS) TABLET PO SCH ×2 (08:49→20:22)
[2021-06-30] MEDS: polyethylene glycoL POWDER 17 GM (MIRALAX) PACK PO SCH ×2 (09:00→20:23)
[2021-06-30] MEDS: SENNA W/DOCUSATE (SENOKOT S) TABLET PO SCH ×2 (09:00→20:21)
--- NOTE | 2021-06-30 09:58 | Physical Therapy Daily Note ---
PT Daily Note-Current Subjective Patient in recliner pre tx, agrees to PT, has no complaints of pain. Appearance Patient in recliner post tx with nurse call, phone, tray, all needs met. Mental Status Patient Orientation: Person, Place, Situation Attachments: Oxygen Transfers SCALE: Activities may be completed with or without assistive devices. 5-Ztusvqvclh-tpxdbqu completes the activity by him/herself with no assistance from a helper. 5-Set-up or Clean-up Assistance-helper sets up or cleans up; patient completes activity. [place] assists only prior to or following the activity. 4-Supervision or Touching Assistance-helper provides verbal cues and/or touching/steadying and/or contact guard assistance as patient completes activity. Assistance may be provided throughout the activity or intermittently. 3-Partial/Moderate Assistance-helper does LESS THAN HALF the effort. [place] lifts, holds or supports trunk or limbs, but provides less than half the effort. 2-Substantial/Maximal Assistance-helper does MORE THAN HALF the effort. [place] lifts or holds trunk or limbs and provides more than half the effort. 5-Lzzsskoaw-vfxhjw does ALL the effort. Patient does none of the effort to complete the activity. Or, the assistance of 2 or more helpers is required for the patient to complete the activity. If activity was not attempted, code reason: 7-Patient Refused. 9-Not Applicable-not attempted and the patient did not perform the activity before the current illness, exacerbation or injury. 10-Not Attempted due to Environmental Limitations-(lack of equipment, weather restraints, etc.). 88-Not Attempted due to Medical Conditions or Safety Concerns. Sit to Stand (QC): 4 Chair/[place]nl[place] Xfer(QC): 4 After getting back to his room he wants to go to the restroom and try to have a BM, he is able to push down and pull up his pants on his own, he says he only has gas. Gait Training Does the Patient Walk?: Yes Distance: 120', 60'x2 Walk 10 feet (QC): 4 Walk 50 ft with 2 Turns(QC): 4 Gait Persons Needed: 1 Gait Assistive Device: FWW SBA, slow but steady ambulation, patient uses a knee sleeve on the right side for knee pain/instability Exercises Seated Therapy Exercises: Ankle pumps, Hip flexion, Hip abd/add (using ball and RTB) LAQ alternating for 5 min NuStep Minutes: 15 NuStep Workload: 4 Treatments transfers, ambulation, LE strengthening, toileting Assessment Current Status: Fair Progress slowly improving strength and endurance PT Short Term Goals Short Term Goals Time Frame: Jul 03, 2021 Roll Left & Right: 6 Sit to lyin Lying to sitting on side of be: 6 Sit to stand: 4 (CGA) Chair/jfy-di-zgwwg transfer: 4 (SBA) Walk 10 feet: 4 (SBA) Walk 50 feet with two turns: 4 (SBA) PT Hand Embroiderer Goals Hand Embroiderer Goals PT Nursing Home Goals Time Frame: Jul 17, 2021 Roll Left & Right (QC): 6 Sit to Lying (QC): 6 Lying-Sitting on Side/Bed(QC): 6 Sit to Stand (QC): 4 (CGA) Chair/Unt-lw-Dsreg Xfer(QC): 6 Toilet Transfer (QC): 6 Car Transfer (QC): 4 (CGA) Does the Patient Walk: Yes Walk 10 feet (QC): 6 Walk 50ft with 2 Turns (QC): 6 Walk 150 ft (QC): 6 Walking 10ft on Uneven Surface: 6 1 Step (curb) (QC): 4 (CGA) 4 Steps (QC): 4 (CGA) 12 Steps (QC): 88 Picking up an Object (QC): 6 Wheel 50 feet with 2 turns (QC: 9 Wheel 150 feet: 9 PT Plan Problem List Problem List: Activity Tolerance, Functional Strength, Safety, Balance, Gait, Transfer, Bed Mobility, ROM Treatment/Plan Treatment Plan: Continue Plan of Care Treatment Plan: Bed Mobility, Education, Functional Activity Queenie, Functional Strength, Group Therapy, Gait, Safety, Therapeutic Exercise, Transfers Treatment Duration: Jul 17, 2021 Frequency: At least 5 of 7 days/Wk (IRF) Estimated Hrs Per Day: 1.5 hours per day Patient and/or Family Agrees t: Yes Safety Risks/Education Patient Education: Gait Training, Transfer Techniques, Correct Positioning, Safety Issues Teaching Recipient: Patient Teaching Methods: Demonstration, Discussion Response to Teaching: Reinforcement Needed Time/GCodes Time In: 0900 Time Out: 1000 Total Billed Treatment Time: 60 Total Billed Treatment 1 visit EX 30' FA 30' MIGUEL ANGEL TIRADO PT Jun 30, 2021 09:57
--- NOTE | 2021-06-30 11:50 | Physical Therapy Daily Note ---
PT Daily Note-Current Subjective Patient in recliner pre tx, agrees to PT, has no complaints of pain Appearance Patient in recliner post tx with nurse call, phone, tray, all needs met. Mental Status Patient Orientation: Person, Place, Situation Attachments: Oxygen Transfers SCALE: Activities may be completed with or without assistive devices. 2-Mjdxgqmyvg-ikrqcum completes the activity by him/herself with no assistance from a helper. 5-Set-up or Clean-up Assistance-helper sets up or cleans up; patient completes activity. [place] assists only prior to or following the activity. 4-Supervision or Touching Assistance-helper provides verbal cues and/or touching/steadying and/or contact guard assistance as patient completes activity. Assistance may be provided throughout the activity or intermittently. 3-Partial/Moderate Assistance-helper does LESS THAN HALF the effort. [place] lifts, holds or supports trunk or limbs, but provides less than half the effort. 2-Substantial/Maximal Assistance-helper does MORE THAN HALF the effort. [place] lifts or holds trunk or limbs and provides more than half the effort. 7-Pegzfpzon-zsyejh does ALL the effort. Patient does none of the effort to complete the activity. Or, the assistance of 2 or more helpers is required for the patient to complete the activity. If activity was not attempted, code reason: 7-Patient Refused. 9-Not Applicable-not attempted and the patient did not perform the activity before the current illness, exacerbation or injury. 10-Not Attempted due to Environmental Limitations-(lack of equipment, weather restraints, etc.). 88-Not Attempted due to Medical Conditions or Safety Concerns. Sit to Stand (QC): 4 Chair/Zwq-bt-Mktpq Xfer(QC): 4 Gait Training Distance: 120'x2 Walk 10 feet (QC): 4 Walk 50 ft with 2 Turns(QC): 4 Gait Persons Needed: 1 Gait Assistive Device: FWW SBA, slow but steady ambulation, uses a knee sleeve on the right side Exercises Standing: Hip Abduction, Heel/toe raises, Marching Standing Reps: 15 Treatments transfers, ambulation, LE strengthening Assessment Current Status: Fair Progress improving endurance, patient didn't need a rest break on the way back to his room, still needs frequent rest breaks though in general during therapy PT Short Term Goals Short Term Goals Time Frame: Jul 03, 2021 Roll Left & Right: 6 Sit to lyin Lying to sitting on side of be: 6 Sit to stand: 4 (CGA) Chair/joj-uc-audpz transfer: 4 (SBA) Walk 10 feet: 4 (SBA) Walk 50 feet with two turns: 4 (SBA) PT Manual Tester Goals Manual Tester Goals PT Mcfp Goals Time Frame: Jul 17, 2021 Roll Left & Right (QC): 6 Sit to Lying (QC): 6 Lying-Sitting on Side/Bed(QC): 6 Sit to Stand (QC): 4 (CGA) Chair/Brg-wk-Wqbmg Xfer(QC): 6 Toilet Transfer (QC): 6 Car Transfer (QC): 4 (CGA) Does the Patient Walk: Yes Walk 10 feet (QC): 6 Walk 50ft with 2 Turns (QC): 6 Walk 150 ft (QC): 6 Walking 10ft on Uneven Surface: 6 1 Step (curb) (QC): 4 (CGA) 4 Steps (QC): 4 (CGA) 12 Steps (QC): 88 Picking up an Object (QC): 6 Wheel 50 feet with 2 turns (QC: 9 Wheel 150 feet: 9 PT Plan Problem List Problem List: Activity Tolerance, Functional Strength, Safety, Balance, Gait, Transfer, Bed Mobility, ROM Treatment/Plan Treatment Plan: Continue Plan of Care Treatment Plan: Bed Mobility, Education, Functional Activity [place], Functional Strength, Group Therapy, Gait, Safety, Therapeutic Exercise, Transfers Treatment Duration: Jul 17, 2021 Frequency: At least 5 of 7 days/Wk (IRF) Estimated Hrs Per Day: 1.5 hours per day Patient and/or Family Agrees t: Yes Safety Risks/Education Patient Education: Gait Training, Transfer Techniques, Correct Positioning, Safety Issues Teaching Recipient: Patient Teaching Methods: Demonstration, Discussion Response to Teaching: Reinforcement Needed Time/GCodes Time In: 1125 Time Out: 1155 Total Billed Treatment Time: 30 Total Billed Treatment 1 visit EX 10' FA 20' MIGUEL ANGEL TIRADO PT Jun 30, 2021 11:50
--- NOTE | 2021-06-30 19:04 | Cardiology Progress Note ---
Progress Note-Cardiology Events since last exam Date Seen by Provider: Jun 30, 2021 Time Seen by Provider: 18:59 Events since last exam I am following him due to heart failure, coronary artery disease and atrial fibrillation. He has received 2 doses of oral bumetanide. His peripheral edema has not really improved all that much. He still has some dyspnea on exertion with physical therapy but finds if he pulls his mask down under his nose, he can breathe easier. He denies chest discomfort, palpitations, or syncope. Certain portions of this document may have been dictated utilizing voice recognition technology. Inherent to this technology, typographical and grammatical errors may exist. As much as I am diligent to identify and correct these mistakes, some errors may remain in the document. Vitals Last set of Vitals Signs Vital Signs 06/30/21 06/30/21 07:42 09:00 Temp 35.8 Pulse 82 Resp 18 B/P (MAP) 151/67 (95) Pulse Ox 98 O2 Delivery Nasal Cannula O2 Flow Rate 3.00 Labs Labs Laboratory Tests 06/30/21 06:30 Exam Vital Signs Vital Signs Date Time Temp Pulse Resp B/P (MAP) Pulse Ox O2 Delivery O2 Flow Rate FiO2 06/30/21 09:00 Nasal Cannula 3.00 06/30/21 07:42 35.8 82 18 151/67 (95) 98 Physical Exam General: Alert. No acute distress. He is obese. Eye: No xanthelasma. HENT: Normocephalic. Neck: Jugular venous pressure does not appear elevated. Respiratory: Lungs are clear to auscultation but decreased at the bases bilaterally. Respirations are non-labored. Breath sounds are equal. Symmetrical chest wall expansion. Cardiovascular: Normal rate. Irregular rhythm. No murmur. No gallop. 2+ bilateral pretibial edema. Gastrointestinal: Soft. Normal bowel sounds. Skin: Warm. Dry. Neurologic: Alert and oriented to person, place, time. Cranial nerves 3-11 grossly intact. Psychiatric: Cooperative. Appropriate mood & affect. Labs Laboratory Tests Test 06/29/21 21:11 06/30/21 05:35 06/30/21 06:30 06/30/21 11:27 Range/Units Glucometer 192 H 89 139 H 70-110 MG/DL Sodium Level 140 135-145 MMOL/L Potassium Level 3.7 3.6-5.0 MMOL/L Chloride Level 100 98-107 MMOL/L Carbon Dioxide Level 25 21-32 MMOL/L Anion Gap 15 H 5-14 MMOL/L Blood Urea Nitrogen 21 H 7-18 MG/DL Creatinine 2.50 H 0.60-1.30 MG/DL Estimat Glomerular Filtration Rate 27 BUN/Creatinine Ratio 8 Glucose Level 102 70-105 MG/DL Calcium Level 8.6 8.5-10.1 MG/DL Test 06/30/21 16:45 Range/Units Glucometer 151 H 70-110 MG/DL Diagnosis/Problems Diagnosis/Problems (1) Chronic heart failure with preserved ejection fraction (HFpEF) Assessment & Plan: He reports a history of heart failure and was never told he had a low ejection fraction. He takes furosemide at home but presumably due to the acute kidney injury, this was stopped at the outside facility. His peripheral edema persists. I have him on oral bumetanide. His renal function seems to be tolerating this. If his creatinine does become elevated, then we will likely need to stop the diuretic. (2) Persistent atrial fibrillation Assessment & Plan: From his description, he underwent a cardioversion at the outside hospital but has been in atrial fibrillation in our hospital. His heart rate is controlled with amiodarone and carvedilol. I did adjust his Eliquis because he was not on the appropriate dose at the outside hospital. I do not see any urgent need for cardioversion. This will need to be followed closely by his outside protein scientist following discharge. 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 He is not taking aspirin because he is on apixaban due to the atrial fibrillation. For unclear reasons, he is also on clopidogrel. This may need to be addressed by his regular outside protein scientist following discharge. Dual pathway inhibition, particularly with clopidogrel, is not necessarily indicated unless the patient had a recent coronary stent or acute coronary syndrome. I recommend he continue on carvedilol and statin medication. (4) Primary hypertension Assessment & Plan: His blood pressure is is intermittently elevated. If this persists, I would recommend increasing the dose of beta-amrit. I would not prescribe amlodipine or his peripheral edema will likely become much worse. (5) Mixed hyperlipidemia Assessment & Plan: Continue atorvastatin. (6) Acute kidney injury superimposed on chronic kidney disease Assessment & Plan: I do not have a record of his baseline renal function. As above, his renal function appears to have stabilized. I have ordered a daily metabolic panel for as long as he is on bumetanide. If his renal function remains stable, then we can probably stop the daily metabolic panels. KOLBY MAGALLANES JR, MD Jun 30, 2021 19:04
[2021-06-30 20:00] VITALS: BP 145/64
[2021-06-30] MEDS: traZODone 50 MG (DESYREL) TAB PO SCH (20:22)
[2021-06-30] MEDS: [UNRECOGNIZED DRUG - REMARK] TOP SCH (22:00)
[2021-07-01 06:11] LABS: CALCIUM 8.7 MG/DL (8.5-10.1); CREATININE SERUM 2.75 MG/DL (0.60-1.30); POTASSIUM 3.7 MMOL/L (3.6-5.0)
[2021-07-01] MEDS: inSUlin ASPART (NovoLOG) 1 UNIT/0.01 ML (CHARGE PER UNIT) SC SCH ×4 (06:16→21:41)
--- NOTE | 2021-07-01 06:58 | PM&R Progress Note ---
Subjective HPI/CC On Admission Date Seen by Provider: Jul 01, 2021 Time Seen by Provider: 09:00 Subjective/Events-last exam 07/01/2021: Pt is doing okay Checked meds and labs Sugars are good Leg edema is improved Takes 1-2 Percocet a day Heart rate of afib at 100 this morning Discharge planned for 07/08/21 06/30/2021: Pt is voiding well status post catheter removal We will cancel Dr. Roy consultation Checked meds and labs Doing very well 06/29/2021: Pt is doing really well Discontinued the cath today and he is able to void a little bit Urology will be consulted just in case he has retention Checked meds and labs Overall very stable 06/28/2021: Patient doing well Walking around with assistance We will discontinue Najera catheter tomorrow Check meds labs Blood sugars good 06/27/2021: Patient doing very well Settling in well Bowels moved today Slept really well last night for the first time in weeks EKG obtained showing atrial fibrillation Dr. Sumner will consult Kidney function stable Review of Systems General: Fatigue, Malaise Cardiovascular: Edema Neurological: Weakness Objective Exam Vital Signs Vital Signs Date Time Temp Pulse Resp B/P (MAP) Pulse Ox O2 Delivery O2 Flow Rate FiO2 07/01/21 21:52 96 Nasal Cannula 3.00 07/01/21 19:23 36.2 91 18 147/64 (91) Capillary Refill : General Appearance: No Apparent Distress, WD/WN, Chronically ill, Obese HEENT: PERRL/EOMI, Normal ENT Inspection, Pharynx Normal Neck: Full Range of Motion, Normal Inspection, Non Tender, Supple, Carotid Bruit Respiratory: Chest Non Tender, Lungs Clear, Normal Breath Sounds, No Accessory Muscle Use, No Respiratory Distress Cardiovascular: Regular Rate, Rhythm, No Edema, No Gallop, No JVD, No Murmur, Normal Peripheral Pulses Gastrointestinal: Normal Bowel Sounds, No Organomegaly, No Pulsatile Mass, Non Tender, Soft Back: Normal Inspection, No CVA Tenderness, No Vertebral Tenderness Extremity: Normal Capillary Refill, Normal Inspection, Normal Range of Motion, Non Tender, No Calf Tenderness, No Pedal Edema Neurologic/Psychiatric: Alert, Oriented x3, No Motor/Sensory Deficits, Normal Mood/Affect, Abnormal Gait, Motor Weakness (Generalized 3/5) Skin: Normal Color, Warm/Dry Lymphatic: No Adenopathy Results/Procedures Lab Laboratory Tests 07/01/21 05:25 Patient resulted labs reviewed. FIM Transfers Therapy Code Descriptions/Definitions Functional [place] Measure: 0=Not Assessed/NA 4=Minimal Assistance 1=Total Assistance 5=Supervision or Setup 2=Maximal Assistance 6=Modified [place] 3=Moderate Assistance 7=Complete IndependenceSCALE: Activities may be completed with or without assistive devices. 6-Dbawojlcif-lcvxyhb completes the activity by him/herself with no assistance from a helper. 5-Set-up or Clean-up Assistance-helper sets up or cleans up; patient completes activity. [place] assists only prior to or following the activity. 4-Supervision or Touching Assistance-helper provides verbal cues and/or touching/steadying and/or contact guard assistance as patient completes activity. Assistance may be provided throughout the activity or intermittently. 3-Partial/Moderate Assistance-helper does LESS THAN HALF the effort. [place] lifts, holds or supports trunk or limbs, but provides less than half the effort. 2-Substantial/Maximal Assistance-helper does MORE THAN HALF the effort. [place] lifts or holds trunk or limbs and provides more than half the effort. 7-Saklophkt-xjhwdu does ALL the effort. Patient does none of the effort to complete the activity. Or, the assistance of 2 or more helpers is required for the patient to complete the activity. If activity was not attempted, code reason: 7-Patient Refused. 9-Not Applicable-not attempted and the patient did not perform the activity before the current illness, exacerbation or injury. 10-Not Attempted due to Environmental Limitations-(lack of equipment, weather restraints, etc.). 88-Not Attempted due to Medical Conditions or Safety Concerns. Roll Left to Right (QC): 4 Sit to Lying (QC): 4 Sit to Stand (QC): 4 Chair/Wuc-sm-Skmjy Xfer(QC): 4 Car Transfer (QC): 3 Gait Training Does the Patient Walk?: Yes Distance: 120'x2 Walk 10 feet (QC): 4 Walk 50 ft with 2 Turns(QC): 4 Walk 150 ft (QC): 4 Walking 10ft/uneven surface-QC: 88 Gait Persons Needed: 1 Gait Assistive Device: FWW Wheelchair Training Does the Pt Use a Wheelchair?: No Wheel 50 ft with 2 turns (QC): 9 Wheel 150 ft (QC): 9 Stair Training 1 Step (curb) (QC): 88 4 Steps (QC): 88 12 Steps (QC): 88 Balance Picking up an Object (QC): 4 (CGA using immigration patrol inspector) ADL-Treatment Eating (QC): 6 Oral Hygiene (QC): 6 Shower/Bathe Self (QC): 3 Upper Body Dressing (QC): 5 Lower Body Dressing (QC): 4 On/Off Footwear (QC): 3 Toileting Hygiene (QC): 3 Toilet Transfer (QC): 3 Assessment/Plan Assessment and Plan Assess & Plan/Chief Complaint Assessment: Critical illness myopathy Recent new onset atrial fibrillation with RVR now normal sinus rhythm on amiodarone and Coreg Diabetes Hypertension Hyperlipidemia COPD CHF Chronic kidney disease stage III CAD previous bypass GERD HERMINIO Najera catheter in place now discontinued and voiding well Plan: Rehab protocol Restarted all meds from [place] Supportive care 06/27/2021: Supportive care DC Najera catheter Tuesday in case urinary retention occurs and urology will be available 06/28/2021: Supportive care DC catheter tomorrow 06/29/2021: DC catheter Urology consultation 06/30/2021: Voiding well so we will discontinue urology consultation Continue aggressive therapy 07/01/2021: Supportive care Improved status (1) Chronic heart failure with preserved ejection fraction (HFpEF) Assessment & Plan: He reports a history of heart failure and was never told he had a low ejection fraction. He takes furosemide at home but presumably due to the acute kidney injury, this was stopped at the outside facility. His peripheral edema persists. I have him on oral bumetanide. His renal function seems to be tolerating this. If his creatinine does become elevated, then we will likely need to stop the diuretic. (2) Persistent atrial fibrillation Assessment & Plan: From his description, he underwent a cardioversion at the outside hospital but has been in atrial fibrillation in our hospital. His heart rate is controlled with amiodarone and carvedilol. I did adjust his Eliquis because he was not on the appropriate dose at the outside hospital. I do not see any urgent need for cardioversion. This will need to be followed closely by his outside vascular tech following discharge. 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 He is not taking aspirin because he is on apixaban due to the atrial fibrillation. For unclear reasons, he is also on clopidogrel. This may need to be addressed by his regular outside vascular tech following discharge. Dual pathway inhibition, particularly with clopidogrel, is not necessarily indicated unless the patient had a recent coronary stent or acute coronary syndrome. I recommend he continue on carvedilol and statin medication. (4) Primary hypertension Assessment & Plan: His blood pressure is is intermittently elevated. If this persists, I would recommend increasing the dose of beta-amrit. I would not prescribe amlodipine or his peripheral edema will likely become much worse. (5) Mixed hyperlipidemia Assessment & Plan: Continue atorvastatin. (6) Acute kidney injury superimposed on chronic kidney disease Assessment & Plan: I do not have a record of his baseline renal function. As above, his renal function appears to have stabilized. I have ordered a daily metabolic panel for as long as he is on bumetanide. If his renal function remains stable, then we can probably stop the daily metabolic panels. CARLENE BYRNE DO Jul 01, 2021 06:58
[2021-07-01 07:40] VITALS: BP 144/74
[2021-07-01] MEDS: CLOPIDOGREL 75 MG (PLAVIX) TABLET PO SCH (08:21)
[2021-07-01] MEDS: APIXABAN 2.5 MG (ELIQUIS) TABLET PO SCH ×2 (08:21→21:41)
[2021-07-01] MEDS: AMIODARONE 200 MG (CORDARONE) TAB PO SCH (08:21)
[2021-07-01] MEDS: PANTOPRAZOLE 40 MG (PROTONIX) TAB PO SCH (08:21)
[2021-07-01] MEDS: BUMETANIDE 1 MG (BUMEX) TAB PO SCH (08:21)
[2021-07-01] MEDS: DOCUSATE SODIUM 100 MG (COLACE) CAP PO SCH ×2 (08:21→21:42)
[2021-07-01] MEDS: oxyCODONE/APAP 5/325MG (PERCOCET 5) TABLET PO PRN ×3 (08:21→19:21)
--- NOTE | 2021-07-01 09:05 | Occupational Ther Daily Note ---
OT Current Status-Daily Note Subjective Pt alert, sitting in recliner. Pt agrees to therapy. Nrs brought pain meds, pt rated 4/10. Mental Status/Objective Patient Orientation: Person, Place, Time, Situation Attachments: Oxygen (3L) ADL-Treatment Pt agrees to shower. Independent with eating. Sitting on shower bench using grabbars, hand held shower and LH sponge pt able to bathe all areas except buttocks then pt stands while stabilizing self with grabbars and assist given to thoroughly cleanse buttocks. Min A for toileting. Set up for upper body dressing. Using AE for lower body dressing, pt able to complete with only CGA in standing to hike over hips. AE for donning/doffing socks. Sitting at sink, pt independent at oral care and grooming. CGA for ambulation and transfers using FWW. After therapy, pt sitting in recliner with call light/phone in reach. All needs met in room. Therapy Code Descriptions/Definitions Functional [place] Measure: 0=Not Assessed/NA 4=Minimal Assistance 1=Total Assistance 5=Supervision or Setup 2=Maximal Assistance 6=Modified [place] 3=Moderate Assistance 7=Complete IndependenceSCALE: Activities may be completed with or without assistive devices. 2-Djzcdjwfnk-mwyfylo completes the activity by him/herself with no assistance from a helper. 5-Set-up or Clean-up Assistance-helper sets up or cleans up; patient completes activity. [place] assists only prior to or following the activity. 4-Supervision or Touching Assistance-helper provides verbal cues and/or touching/steadying and/or contact guard assistance as patient completes activity. Assistance may be provided throughout the activity or intermittently. 3-Partial/Moderate Assistance-helper does LESS THAN HALF the effort. [place] lifts, holds or supports trunk or limbs, but provides less than half the effort. 2-Substantial/Maximal Assistance-helper does MORE THAN HALF the effort. [place] lifts or holds trunk or limbs and provides more than half the effort. 6-Lpmthhcua-jdvmrb does ALL the effort. Patient does none of the effort to complete the activity. Or, the assistance of 2 or more helpers is required for the patient to complete the activity. If activity was not attempted, code reason: 7-Patient Refused. 9-Not Applicable-not attempted and the patient did not perform the activity before the current illness, exacerbation or injury. 10-Not Attempted due to Environmental Limitations-(lack of equipment, weather restraints, etc.). 88-Not Attempted due to Medical Conditions or Safety Concerns. Eating (QC): 6 Oral Hygiene (QC): 6 Shower/Bathe Self (QC): 3 Upper Body Dressing (QC): 5 Lower Body Dressing (QC): 4 On/Off Footwear: 5 Toileting Hygiene (QC): 3 Toilet Transfer (QC): 4 OT Short Term Goals Short Term Goals Time Frame: Jul 10, 2021 Toileting hygiene: 3 Shower/bathe self: 4 Lower body dressin Putting on/taking off footwear: 3 OT Steel Erecting Pusher Goals Steel Erecting Pusher Goals Time Frame: Jul 24, 2021 Eating (QC): 6 Oral Hygiene (QC): 6 Toileting Hygiene (QC): 6 Shower/Bathe Self (QC): 6 Upper Body Dressing (QC): 6 Lower Body Dressing (QC): 6 On/Off Footwear (QC): 6 Additional Goals: 1-Demonstrate ADL Tasks, 2-Verbalize Understanding, 3- ImproveStrength/Queenie 1=Demonstrate adherence to instructed precautions during ADL tasks. 2=Patient will verbalize/demonstrate understanding of assistive devices/keagan fications for ADL. 3=Patient will improve strength/tolerance for activity to enable patient to perform ADL's. OT Education/Plan Problem List/Assessment Assessment: Decreased Activ Tolerance, Impaired Self-Care Skills Discharge Recommendations Plan/Recommendations: Continue POC Equpiment Recommendations-D/C: Gear Milling Machine Set Up Operator, Sock Aide (extra wide) Treatment Plan/Plan of Care Patient would benefit from OT for education, treatment and training to promote independence in ADL's, mobility, safety and/or upper extremity function for ADL's. Plan of Care: ADL Retraining, Functional Mobility, Group Exercise/Act as Ind, UE Funct Exercise/Act Treatment Duration: Jul 24, 2021 Frequency: At least 5 of 7 days/Wk (IRF) Estimated Hrs Per Day: 1.5 hours per day Agreement: Yes Rehab Potential: Good Time/GCodes Start Time: 08:15 Stop Time: 09:15 Total Time Billed (hr/min): 60 Billed Treatment Time 1 visit-ADL 4 (60 min) ROSA M NOVA Jul 01, 2021 09:05
[2021-07-01] MEDS: polyethylene glycoL POWDER 17 GM (MIRALAX) PACK PO SCH ×2 (09:27→21:30)
[2021-07-01] MEDS: SENNA W/DOCUSATE (SENOKOT S) TABLET PO SCH ×2 (09:27→21:44)
--- NOTE | 2021-07-01 11:15 | Physical Therapy Daily Note ---
PT Daily Note-Current Subjective Pt. agrees to Rx, feels he has made good progress . Happy to announce that he and his will be moving out of the home they have been living in that has some mold issues to a [facility] in [place] where they will be closer to a daughter . Pt is relieved. Pt. c/o some discomfort in right knee and requests Hemp ointment be put on it as well as knee neoprene brace, this was done. Pain Numeric Pain Scale: 5-Moderate Pain Location: Right Location Body Site: Knee Pain Description: Ache Mental Status Patient Orientation: Normal For Age Attachments: Oxygen (3L) Transfers SCALE: Activities may be completed with or without assistive devices. 8-Vyfsgnlpgl-kyocyvq completes the activity by him/herself with no assistance from a helper. 5-Set-up or Clean-up Assistance-helper sets up or cleans up; patient completes activity. [place] assists only prior to or following the activity. 4-Supervision or Touching Assistance-helper provides verbal cues and/or touching/steadying and/or contact guard assistance as patient completes activity. Assistance may be provided throughout the activity or intermittently. 3-Partial/Moderate Assistance-helper does LESS THAN HALF the effort. [place] lifts, holds or supports trunk or limbs, but provides less than half the effort. 2-Substantial/Maximal Assistance-helper does MORE THAN HALF the effort. [place] lifts or holds trunk or limbs and provides more than half the effort. 9-Anfiexftf-nfjzri does ALL the effort. Patient does none of the effort to co mplete the activity. Or, the assistance of 2 or more helpers is required for the patient to complete the activity. If activity was not attempted, code reason: 7-Patient Refused. 9-Not Applicable-not attempted and the patient did not perform the activity before the current illness, exacerbation or injury. 10-Not Attempted due to Environmental Limitations-(lack of equipment, weather restraints, etc.). 88-Not Attempted due to Medical Conditions or Safety Concerns. Roll Left & Right (QC): 6 Sit to Lying (QC): 6 Lying to Sitting/Side of Bed(Q: 6 Sit to Stand (QC): 6 Chair/Ycq-cc-Uyabl Xfer(QC): 6 Gait Training Does the Patient Walk?: Yes Walk 10 feet (QC): 5 Walk 50 ft with 2 Turns(QC): 5 Walk 150 ft (QC): 5 Gait Persons Needed: 1 Gait Assistive Device: FWW assist for O2, no LOB, safe appropriate use of device Exercises Supine Ex: Bridging, Ankle pumps, Quad Set, Rolling, Heel Slides, Straight leg raise, Hip abd/add Supine Reps: 10 NuStep Minutes: 15 NuStep Workload: 2 Treatments pt. has discomfort on back for very long, breathing issues etc. minimal exercise done in supine. Gait, TRFs, nustep all improving pts endurance, stamina and strength as well as gait stability Assessment Current Status: Good Progress no c/o SOB, PT Short Term Goals Short Term Goals Time Frame: Jul 03, 2021 Roll Left & Right: 6 Sit to lyin Lying to sitting on side of be: 6 Sit to stand: 4 (CGA) Chair/idb-nx-zbnpj transfer: 4 (SBA) Walk 10 feet: 4 (SBA) Walk 50 feet with two turns: 4 (SBA) PT Environmental Compliance Officer Goals Environmental Compliance Officer Goals PT Shelter Goals Time Frame: Jul 17, 2021 Roll Left & Right (QC): 6 Sit to Lying (QC): 6 Lying-Sitting on Side/Bed(QC): 6 Sit to Stand (QC): 4 (CGA) Chair/Nhw-cv-Ulnfc Xfer(QC): 6 Toilet Transfer (QC): 6 Car Transfer (QC): 4 (CGA) Does the Patient Walk: Yes Walk 10 feet (QC): 6 Walk 50ft with 2 Turns (QC): 6 Walk 150 ft (QC): 6 Walking 10ft on Uneven Surface: 6 1 Step (curb) (QC): 4 (CGA) 4 Steps (QC): 4 (CGA) 12 Steps (QC): 88 Picking up an Object (QC): 6 Wheel 50 feet with 2 turns (QC: 9 Wheel 150 feet: 9 PT Plan Treatment/Plan Treatment Plan: Continue Plan of Care Treatment Plan: Bed Mobility, Education, Functional Activity [place], Functional Strength, Group Therapy, Gait, Safety, Therapeutic Exercise, Transfers Treatment Duration: Jul 17, 2021 Frequency: At least 5 of 7 days/Wk (IRF) Estimated Hrs Per Day: 1.5 hours per day Patient and/or Family Agrees t: Yes Safety Risks/Education Patient Education: Gait Training, Transfer Techniques, Correct Positioning, Disease Process, Safety Issues Teaching Recipient: Patient Teaching Methods: Demonstration, Discussion Response to Teaching: Verbalize Understanding, Return Demonstration, Reinforcement Needed Time/GCodes Time In: 1000 Time Out: 1100 Total Billed Treatment Time: 60 Total Billed Treatment 1,[id number] ROMEO LOVE MARKETING TECHNOLOGIST Jul 01, 2021 11:14
[2021-07-01] MEDS ORDERED: ROSU20TA32 PO (14:08)
[2021-07-01] MEDS ORDERED: CLOR7.5T3 PO (14:08)
[2021-07-01] MEDS ORDERED: POTA-179 PO (14:08)
[2021-07-01] MEDS ORDERED: GLIM4TAB5 PO (14:08)
[2021-07-01] MEDS ORDERED: ASPI325T32 PO (14:08)
[2021-07-01] MEDS ORDERED: LIRA0.6P3 SQ (14:08)
[2021-07-01] MEDS ORDERED: CHOL20003 PO (14:08)
[2021-07-01] MEDS ORDERED: BUME1TAB8 PO (14:08)
[2021-07-01] MEDS ORDERED: OLME40TA18 PO (14:08)
--- NOTE | 2021-07-01 14:29 | Therapy Group Daily Note ---
Therapy Daily Group Note Patient Education Topic Other List Below (Enviromental safety) Exercises LE Seated Exercise, UE Exercise Session Ratio (pt:therapist): 3:1 Goal of Session: Education on ARU Expectations, Home Safety Strategies, UE/LE Strengthing Goal Met for this Session: Yes Pt Benefit of Group: Contributions to Others, F/U Use of Strategies @Home, Increased Functional Safety, Increased Functional Strength, Improved Cognition, Recognition of Peers, Socialization Other/Notes Pt ambulated using FWW to ARU commons areas for OT/PT group. Group consisted of introductions (name,place living, positive things that came from COVID pandemic), socialization, B UE/LE seated exercise and educational topics about ARU, environmental/home safety. Pt able to introduce self appropriately and actively listening to peers. Discussion about grocery forklift picker or delivery in community. Environmental safety Bingo completed with word scramble to work on cognition and problem solving skills. Pt using good dynamic sitting balance during reaching and grasping throughout activities. After session, pt sitting in recliner with call light/phone in reach. All needs met in room. Start Time: 13:00 Stop Time: 14:00 Total Billed Treatment Time: 60 Total Billed Treatment 1-GRP ROSA M NOVA Jul 01, 2021 14:29
[2021-07-01] MEDS ORDERED: MTP100TCR PO (14:49)
--- NOTE | 2021-07-01 16:19 | Cardiology Progress Note ---
Progress Note-Cardiology Events since last exam Date Seen by Provider: Jul 01, 2021 Time Seen by Provider: 16:18 Events since last exam I am following him due to heart failure, atrial fibrillation and coronary artery disease. He feels as though his breathing continues to improve. His lower extremity edema is unchanged. He denies chest discomfort, palpitations, or syncope. Certain portions of this document may have been dictated utilizing voice recognition technology. Inherent to this technology, typographical and grammatical errors may exist. As much as I am diligent to identify and correct these mistakes, some errors may remain in the document. Vitals Last set of Vitals Signs Vital Signs 07/01/21 07/01/21 07:40 09:22 Temp 36.3 Pulse 97 Resp 18 B/P (MAP) 144/74 (97) Pulse Ox 94 O2 Delivery Nasal Cannula O2 Flow Rate 3.00 Labs Labs Laboratory Tests 07/01/21 05:25 Exam Vital Signs Vital Signs Date Time Temp Pulse Resp B/P (MAP) Pulse Ox O2 Delivery O2 Flow Rate FiO2 07/01/21 09:22 Nasal Cannula 3.00 07/01/21 07:40 36.3 97 18 144/74 (97) 94 Physical Exam General: Alert. No acute distress. He is obese. Eye: No xanthelasma. HENT: Normocephalic. Neck: Jugular venous pressure does not appear elevated. Respiratory: Lungs are clear to auscultation but decreased at the bases bilaterally. Respirations are non-labored. Breath sounds are equal. Symmetrical chest wall expansion. Cardiovascular: Normal rate. Irregular rhythm. No murmur. No gallop. 2+ bilateral pretibial edema. Gastrointestinal: Soft. Normal bowel sounds. Skin: Warm. Dry. Neurologic: Alert and oriented to person, place, time. Cranial nerves 3-11 grossly intact. Psychiatric: Cooperative. Appropriate mood & affect. Labs Laboratory Tests Test 06/30/21 21:19 07/01/21 05:25 07/01/21 10:44 07/01/21 16:41 Range/Units Glucometer 154 H 193 H 137 H 70-110 MG/DL Sodium Level 139 135-145 MMOL/L Potassium Level 3.7 3.6-5.0 MMOL/L Chloride Level 100 98-107 MMOL/L Carbon Dioxide Level 24 21-32 MMOL/L Anion Gap 15 H 5-14 MMOL/L Blood Urea Nitrogen 24 H 7-18 MG/DL Creatinine 2.75 H 0.60-1.30 MG/DL Estimat Glomerular Filtration Rate 24 BUN/Creatinine Ratio 9 Glucose Level 112 H 70-105 MG/DL Calcium Level 8.7 8.5-10.1 MG/DL Diagnosis/Problems Diagnosis/Problems (1) Chronic heart failure with preserved ejection fraction (HFpEF) Assessment & Plan: He reports a history of heart failure and was never told he had a low ejection fraction. He takes furosemide at home but presumably due to the acute kidney injury, this was stopped at the outside facility. His peripheral edema persists. I have him on oral bumetanide. His creatinine is starting to rise. I will stop the bumetanide and follow his renal function closely. (2) Persistent atrial fibrillation Assessment & Plan: From his description, he underwent a cardioversion at the outside hospital but has been in atrial fibrillation in our hospital. His heart rate is controlled with amiodarone and carvedilol. I did adjust his Eliquis because he was not on the appropriate dose at the outside hospital. I do not see any urgent need for cardioversion. This will need to be followed closely by his outside content director following discharge. (3) Coronary artery disease involving alga[place]q coronary artery with angina pect asya Assessment & Plan: He is not having any typical angina during his physical therapy. He is not taking aspirin because he is on apixaban due to the atrial fibrillation. For unclear reasons, he is also on clopidogrel. This may need to be addressed by his regular outside content director following discharge. Dual pathway inhibition, particularly with clopidogrel, is not necessarily indicated unless the patient had a recent coronary stent or acute coronary syndrome. I recommend he continue on carvedilol and statin medication. (4) Primary hypertension Assessment & Plan: His blood pressure is is intermittently elevated. I will increase the dose of beta-amrit. I would not prescribe amlodipine or his peripheral edema will likely become much worse. (5) Mixed hyperlipidemia Assessment & Plan: Continue atorvastatin. (6) Acute kidney injury superimposed on chronic kidney disease Assessment & Plan: I do not have a record of his baseline renal function. As above, his renal function appears to be worsening with diuretic which I have stopped. KOLBY MAGALLANES JR, MD Jul 01, 2021 16:19
[2021-07-01 19:23] VITALS: BP 147/64
[2021-07-01] MEDS: traZODone 50 MG (DESYREL) TAB PO SCH (21:43)
[2021-07-01] MEDS: [UNRECOGNIZED DRUG - REMARK] TOP SCH (23:10)
[2021-07-02] MEDS: inSUlin ASPART (NovoLOG) 1 UNIT/0.01 ML (CHARGE PER UNIT) SC SCH ×4 (05:37→22:01)
--- NOTE | 2021-07-02 05:56 | PM&R Progress Note ---
Subjective HPI/CC On Admission Date Seen by Provider: Jul 02, 2021 Time Seen by Provider: 12:00 Subjective/Events-last exam 07/02/2021: Pt is doing really well Sugar is okay No pain right now Hasn't had a pain pill today Checked meds and labs 07/01/2021: Pt is doing okay Checked meds and labs Sugars are good Leg edema is improved Takes 1-2 Percocet a day Heart rate of afib at 100 this morning Discharge planned for 07/08/21 06/30/2021: Pt is voiding well status post catheter removal We will cancel Dr. Roy consultation Checked meds and labs Doing very well 06/29/2021: Pt is doing really well Discontinued the cath today and he is able to void a little bit Urology will be consulted just in case he has retention Checked meds and labs Overall very stable 06/28/2021: Patient doing well Walking around with assistance We will discontinue Najera catheter tomorrow Check meds labs Blood sugars good 06/27/2021: Patient doing very well Settling in well Bowels moved today Slept really well last night for the first time in weeks EKG obtained showing atrial fibrillation Dr. Sumner will consult Kidney function stable Review of Systems General: Fatigue, Malaise Objective Exam Vital Signs Vital Signs Date Time Temp Pulse Resp B/P (MAP) Pulse Ox O2 Delivery O2 Flow Rate FiO2 07/02/21 21:59 96 Nasal Cannula 3.00 07/02/21 20:10 36.4 76 20 115/57 (76) Capillary Refill : General Appearance: No Apparent Distress, WD/WN, Chronically ill, Obese HEENT: PERRL/EOMI, Normal ENT Inspection, Pharynx Normal Neck: Full Range of Motion, Normal Inspection, Non Tender, Supple, Carotid Bruit Respiratory: Chest Non Tender, Lungs Clear, Normal Breath Sounds, No Accessory Muscle Use, No Respiratory Distress Cardiovascular: Regular Rate, Rhythm, No Edema, No Gallop, No JVD, No Murmur, Normal Peripheral Pulses Gastrointestinal: Normal Bowel Sounds, No Organomegaly, No Pulsatile Mass, Non Tender, Soft Back: Normal Inspection, No CVA Tenderness, No Vertebral Tenderness Extremity: Normal Capillary Refill, Normal Inspection, Normal Range of Motion, Non Tender, No Calf Tenderness, No Pedal Edema Neurologic/Psychiatric: Alert, Oriented x3, No Motor/Sensory Deficits, Normal Mood/Affect, Abnormal Gait, Motor Weakness (Generalized 3/5) Skin: Normal Color, Warm/Dry Lymphatic: No Adenopathy Results/Procedures Lab Patient resulted labs reviewed. FIM Transfers Therapy Code Descriptions/Definitions Functional [place] Measure: 0=Not Assessed/NA 4=Minimal Assistance 1=Total Assistance 5=Supervision or Setup 2=Maximal Assistance 6=Modified [place] 3=Moderate Assistance 7=Complete IndependenceSCALE: Activities may be completed with or without assistive devices. 8-Iqlalnkjlc-tmipdwi completes the activity by him/herself with no assistance from a helper. 5-Set-up or Clean-up Assistance-helper sets up or cleans up; patient completes activity. [place] assists only prior to or following the activity. 4-Supervision or Touching Assistance-helper provides verbal cues and/or touchin g/steadying and/or contact guard assistance as patient completes activity. Assistance may be provided throughout the activity or intermittently. 3-Partial/Moderate Assistance-helper does LESS THAN HALF the effort. [place] lifts, holds or supports trunk or limbs, but provides less than half the effort. 2-Substantial/Maximal Assistance-helper does MORE THAN HALF the effort. [place] lifts or holds trunk or limbs and provides more than half the effort. 2-Kgpffcaba-nvvout does ALL the effort. Patient does none of the effort to complete the activity. Or, the assistance of 2 or more helpers is required for the patient to complete the activity. If activity was not attempted, code reason: 7-Patient Refused. 9-Not Applicable-not attempted and the patient did not perform the activity before the current illness, exacerbation or injury. 10-Not Attempted due to Environmental Limitations-(lack of equipment, weather restraints, etc.). 88-Not Attempted due to Medical Conditions or Safety Concerns. Roll Left to Right (QC): 6 Sit to Lying (QC): 6 Sit to Stand (QC): 6 Chair/Qru-tn-Qdvoh Xfer(QC): 6 Car Transfer (QC): 3 Gait Training Does the Patient Walk?: Yes Distance: 120'x2 Walk 10 feet (QC): 5 Walk 50 ft with 2 Turns(QC): 5 Walk 150 ft (QC): 5 Walking 10ft/uneven surface-QC: 88 Gait Persons Needed: 1 Gait Assistive Device: FWW Wheelchair Training Does the Pt Use a Wheelchair?: No Wheel 50 ft with 2 turns (QC): 9 Wheel 150 ft (QC): 9 Stair Training 1 Step (curb) (QC): 88 4 Steps (QC): 88 12 Steps (QC): 88 Balance Picking up an Object (QC): 4 (CGA using tip mender) ADL-Treatment Eating (QC): 6 Oral Hygiene (QC): 6 Shower/Bathe Self (QC): 3 Upper Body Dressing (QC): 5 Lower Body Dressing (QC): 4 On/Off Footwear (QC): 5 Toileting Hygiene (QC): 3 Toilet Transfer (QC): 4 Assessment/Plan Assessment and Plan Assess & Plan/Chief Complaint Assessment: Critical illness myopathy Recent new onset atrial fibrillation with RVR now normal sinus rhythm on am iodarone and Coreg Diabetes Hypertension Hyperlipidemia COPD CHF Chronic kidney disease stage III CAD previous bypass GERD HERMINIO Najera catheter in place now discontinued and voiding well Plan: Rehab protocol Restarted all meds from [place] Supportive care 06/27/2021: Supportive care DC Najera catheter Tuesday in case urinary retention occurs and urology will be available 06/28/2021: Supportive care DC catheter tomorrow 06/29/2021: DC catheter Urology consultation 06/30/2021: Voiding well so we will discontinue urology consultation Continue aggressive therapy 07/01/2021: Supportive care Improved status 07/02/2021: Supportive care (1) Chronic heart failure with preserved ejection fraction (HFpEF) Assessment & Plan: He reports a history of heart failure and was never told he had a low ejection fraction. He takes furosemide at home but presumably due to the acute kidney injury, this was stopped at the outside facility. His peripheral edema persists. I have him on oral bumetanide. His creatinine is starting to rise. I will stop the bumetanide and follow his renal function closely. (2) Persistent atrial fibrillation Assessment & Plan: From his description, he underwent a cardioversion at the outside hospital but has been in atrial fibrillation in our hospital. His heart rate is controlled with amiodarone and carvedilol. I did adjust his Eliquis because he was not on the appropriate dose at the outside hospital. I do not see any urgent need for cardioversion. This will need to be followed closely by his outside merchandise presentation associate following discharge. 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 He is not taking aspirin because he is on apixaban due to the atrial fibrillation. For unclear reasons, he is also on clopidogrel. This may need to be addressed by his regular outside merchandise presentation associate following discharge. Dual pathway inhibition, particularly with clopidogrel, is not necessarily indicated unless the patient had a recent coronary stent or acute coronary syndrome. I recommend he continue on carvedilol and statin medication. (4) Primary hypertension Assessment & Plan: His blood pressure is is intermittently elevated. I will increase the dose of beta-amrit. I would not prescribe amlodipine or his peripheral edema will likely become much worse. (5) Mixed hyperlipidemia Assessment & Plan: Continue atorvastatin. (6) Acute kidney injury superimposed on chronic kidney disease Assessment & Plan: I do not have a record of his baseline renal function. As above, his renal function appears to be worsening with diuretic which I have stopped. CARLENE BYRNE DO Jul 02, 2021 05:56
[2021-07-02 06:23] LABS: POTASSIUM 3.6 MMOL/L (3.6-5.0)
[2021-07-02 06:24] LABS: CALCIUM 8.7 MG/DL (8.5-10.1)
[2021-07-02 06:29] LABS: CREATININE SERUM 2.59 MG/DL (0.60-1.30)
[2021-07-02 07:34] VITALS: BP 142/72
[2021-07-02] MEDS: PANTOPRAZOLE 40 MG (PROTONIX) TAB PO SCH (07:49)
[2021-07-02] MEDS: CLOPIDOGREL 75 MG (PLAVIX) TABLET PO SCH (07:49)
[2021-07-02] MEDS: APIXABAN 2.5 MG (ELIQUIS) TABLET PO SCH ×2 (07:50→22:00)
[2021-07-02] MEDS: DOCUSATE SODIUM 100 MG (COLACE) CAP PO SCH ×2 (07:50→22:12)
[2021-07-02] MEDS: AMIODARONE 200 MG (CORDARONE) TAB PO SCH (07:50)
--- NOTE | 2021-07-02 09:20 | Occupational Ther Daily Note ---
OT Current Status-Daily Note Subjective Pt alert, sitting in recliner. Pt agrees to therapy. No c/o pain. Mental Status/Objective Patient Orientation: Person, Place, Time, Situation Attachments: Oxygen (3L) ADL-Treatment Pt declines shower and oral care. Requests to have sponge bath(set up) and change clothing. Pt set up for upper body dressing and footwear. SBA for lower body dressing. Pt uses AE for lower body dressing. Therapy Code Descriptions/Definitions Functional [place] Measure: 0=Not Assessed/NA 4=Minimal Assistance 1=Total Assistance 5=Supervision or Setup 2=Maximal Assistance 6=Modified [place] 3=Moderate Assistance 7=Complete IndependenceSCALE: Activities may be completed with or without assistive devices. 7-Gniflyrgbz-jxxxrmd completes the activity by him/herself with no assistance from a helper. 5-Set-up or Clean-up Assistance-helper sets up or cleans up; patient completes activity. [place] assists only prior to or following the activity. 4-Supervision or Touching Assistance-helper provides verbal cues and/or touching/steadying and/or contact guard assistance as patient completes activity. Assistance may be provided throughout the activity or intermittently. 3-Partial/Moderate Assistance-helper does LESS THAN HALF the effort. [place] lifts, holds or supports trunk or limbs, but provides less than half the effort. 2-Substantial/Maximal Assistance-helper does MORE THAN HALF the effort. [place] lifts or holds trunk or limbs and provides more than half the effort. 9-Fwlswkgyz-bbedbs does ALL the effort. Patient does none of the effort to complete the activity. Or, the assistance of 2 or more helpers is required for the patient to complete the activity. If activity was not attempted, code reason: 7-Patient Refused. 9-Not Applicable-not attempted and the patient did not perform the activity before the current illness, exacerbation or injury. 10-Not Attempted due to Environmental Limitations-(lack of equipment, weather restraints, etc.). 88-Not Attempted due to Medical Conditions or Safety Concerns. Upper Body Dressing (QC): 5 Lower Body Dressing (QC): 4 On/Off Footwear: 5 Other Treatment Pt ambulated to therapy gym to complete B UE strengthening for daily functional tasks, 15 min at 25 hart resistance. After therapy, pt sitting in recliner with call light/phone in reach. All needs met. OT Short Term Goals Short Term Goals Time Frame: Jul 10, 2021 Toileting hygiene: 3 Shower/bathe self: 4 Lower body dressin Putting on/taking off footwear: 3 OT Medication Aide Goals Long-Term Goals Time Frame: Jul 24, 2021 Eating (QC): 6 Oral Hygiene (QC): 6 Toileting Hygiene (QC): 6 Shower/Bathe Self (QC): 6 Upper Body Dressing (QC): 6 Lower Body Dressing (QC): 6 On/Off Footwear (QC): 6 Additional Goals: 1-Demonstrate ADL Tasks, 2-Verbalize Understanding, 3- ImproveStrength/[place] 1=Demonstrate adherence to instructed precautions during ADL tasks. 2=Patient will verbalize/demonstrate understanding of assistive devices/modifications for ADL. 3=Patient will improve strength/tolerance for activity to enable patient to perform ADL's. OT Education/Plan Problem List/Assessment Assessment: Decreased UE Strength, Impaired Self-Care Skills Discharge Recommendations Plan/Recommendations: Continue POC Treatment Plan/Plan of Care Patient would benefit from OT for education, treatment and training to promote independence in ADL's, mobility, safety and/or upper extremity function for ADL's. Plan of Care: ADL Retraining, Functional Mobility, Group Exercise/Act as Ind, UE Funct Exercise/Act Treatment Duration: Jul 24, 2021 Frequency: At least 5 of 7 days/Wk (IRF) Estimated Hrs Per Day: 1.5 hours per day Agreement: Yes Rehab Potential: Good Time/GCodes Start Time: 09:00 Stop Time: 10:00 Total Time Billed (hr/min): 60 Billed Treatment Time 1 visit-ADL 3 (45 min) EX 1 (15 min) ROSA M NOVA Jul 02, 2021 09:20
[2021-07-02] MEDS: polyethylene glycoL POWDER 17 GM (MIRALAX) PACK PO SCH ×2 (09:37→22:12)
[2021-07-02] MEDS: SENNA W/DOCUSATE (SENOKOT S) TABLET PO SCH ×2 (09:37→22:12)
--- NOTE | 2021-07-02 12:37 | Cardiology Progress Note ---
Progress Note-Cardiology Events since last exam Date Seen by Provider: Jul 02, 2021 Time Seen by Provider: 12:36 Events since last exam I am following him due to heart failure, coronary artery disease and atrial fibrillation. He feels like he continues to steadily improve each day. His breathing is improving during physical therapy. He still has persistent bilateral lower extremity edema. He denies chest pain, palpitations, or syncope. Certain portions of this document may have been dictated utilizing voice recognition technology. Inherent to this technology, typographical and grammatical errors may exist. As much as I am diligent to identify and correct these mistakes, some errors may remain in the document. Vitals Last set of Vitals Signs Vital Signs 07/02/21 07/02/21 07:34 09:37 Temp 36.8 Pulse 82 Resp 16 B/P (MAP) 142/72 (95) Pulse Ox 97 O2 Delivery Nasal Cannula O2 Flow Rate 3.00 Labs Labs Laboratory Tests 07/02/21 05:04 Exam Vital Signs Vital Signs Date Time Temp Pulse Resp B/P (MAP) Pulse Ox O2 Delivery O2 Flow Rate FiO2 07/02/21 09:37 Nasal Cannula 3.00 07/02/21 07:34 36.8 82 16 142/72 (95) 97 Physical Exam General: Alert. No acute distress. He is obese. Eye: No xanthelasma. HENT: Normocephalic. Neck: Jugular venous pressure does not appear elevated. Respiratory: Lungs are clear to auscultation but with decreased breath sounds bilaterally. Respirations are non-labored. Breath sounds are equal. Symmetrical chest wall expansion. Cardiovascular: Normal rate. Irregular rhythm. 2/6 systolic ejection murmur. No gallop. 3+ bilateral pretibial edema. Gastrointestinal: Soft. Normal bowel sounds. Skin: Warm. Dry. Neurologic: Alert and oriented to person, place, time. Cranial nerves 3-11 grossly intact. Psychiatric: Cooperative. Appropriate mood & affect. Labs Laboratory Tests Test 07/01/21 16:41 07/01/21 20:10 07/02/21 05:04 07/02/21 05:22 Range/Units Glucometer 137 H 168 H 116 H 70-110 MG/DL Sodium Level 139 135-145 MMOL/L Potassium Level 3.6 3.6-5.0 MMOL/L Chloride Level 100 98-107 MMOL/L Carbon Dioxide Level 25 21-32 MMOL/L Anion Gap 14 5-14 MMOL/L Blood Urea Nitrogen 23 H 7-18 MG/DL Creatinine 2.59 H 0.60-1.30 MG/DL Estimat Glomerular Filtration Rate 26 BUN/Creatinine Ratio 9 Glucose Level 108 H 70-105 MG/DL Calcium Level 8.7 8.5-10.1 MG/DL Test 07/02/21 10:54 Range/Units Glucometer 191 H 70-110 MG/DL Diagnosis/Problems Diagnosis/Problems (1) Chronic heart failure with preserved ejection fraction (HFpEF) Assessment & Plan: He reports a history of heart failure and was never told he had a low ejection fraction. I did review the records from the outside hospital a second time and could not find any echocardiogram report. He takes furosemide at home but presumably due to the acute kidney injury, this was stopped at the outside facility. His peripheral edema persists. I stopped his oral bumetanide due to a rise in his creatinine level. (2) Persistent atrial fibrillation Assessment & Plan: From his description, he underwent a cardioversion at the outside hospital but has been in atrial fibrillation in our hospital. His heart rate is controlled with amiodarone and carvedilol. I did adjust his Eliquis because he was not on the appropriate dose at the outside hospital. I do not see any urgent need for cardioversion. This will need to be followed closely by his outside geochemical manager following discharge. 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 He is not taking aspirin because he is on apixaban due to the atrial fibrillation. For unclear reasons, he is also on clopidogrel. This may need to be addressed by his regular outside geochemical manager following discharge. Dual pathway inhibition, particularly with clopidogrel, is not necessarily indicated unless the patient had a recent coronary stent or acute coronary syndrome. I recommend he continue on carvedilol and statin medication. (4) Primary hypertension Assessment & Plan: His blood pressures have improved since increasing his dose of carvedilol on 07/01. If any develops recurrent elevated blood pressures, I would maximize the dose of carvedilol. I would not prescribe amlodipine or his peripheral edema will likely become much worse. (5) Mixed hyperlipidemia Assessment & Plan: Continue atorvastatin. (6) Acute kidney injury superimposed on chronic kidney disease Assessment & Plan: I do not have a record of his baseline renal function. As above, his renal function appears to be worsening with diuretic which I have st opped. KOLBY MAGALLANES JR, MD Jul 02, 2021 12:37
[2021-07-02] MEDS: oxyCODONE/APAP 5/325MG (PERCOCET 5) TABLET PO PRN ×2 (13:27→22:08)
--- NOTE | 2021-07-02 13:59 | Occupational Ther Daily Note ---
OT Current Status-Daily Note Subjective Pt alert, sitting in recliner. Pt agrees to therapy. No c/o pain. Mental Status/Objective Patient Orientation: Person, Place, Time, Situation Attachments: Oxygen (3L) ADL-Treatment Education on donning/doffing small knee brace. After middle strap was fastened, pt able to position and strap top and bottom without difficulty. Transfer with SBA to toilet. Manipulates clothing with SBA then able to cleanse self after urination. After therapy, pt sitting in recliner with call light/phone in reach. All needs met in room. Therapy Code Descriptions/Definitions Functional [place] Measure: 0=Not Assessed/NA 4=Minimal Assistance 1=Total Assistance 5=Supervision or Setup 2=Maximal Assistance 6=Modified [place] 3=Moderate Assistance 7=Complete IndependenceSCALE: Activities may be completed with or without assistive devices. 6-Nyrhgxnwsp-gaxzayy completes the activity by him/herself with no assistance from a helper. 5-Set-up or Clean-up Assistance-helper sets up or cleans up; patient completes activity. [place] assists only prior to or following the activity. 4-Supervision or Touching Assistance-helper provides verbal cues and/or t ouching/steadying and/or contact guard assistance as patient completes activity. Assistance may be provided throughout the activity or intermittently. 3-Partial/Moderate Assistance-helper does LESS THAN HALF the effort. [place] lifts, holds or supports trunk or limbs, but provides less than half the effort. 2-Substantial/Maximal Assistance-helper does MORE THAN HALF the effort. [place] lifts or holds trunk or limbs and provides more than half the effort. 9-Bwgjyqtyh-[place] does ALL the effort. Patient does none of the effort to complete the activity. Or, the assistance of 2 or more helpers is required for the patient to complete the activity. If activity was not attempted, code reason: 7-Patient Refused. 9-Not Applicable-not attempted and the patient did not perform the activity before the current illness, exacerbation or injury. 10-Not Attempted due to Environmental Limitations-(lack of equipment, weather restraints, etc.). 88-Not Attempted due to Medical Conditions or Safety Concerns. Toileting Hygiene (QC): 4 Toilet Transfer (QC): 4 OT Short Term Goals Short Term Goals Time Frame: Jul 10, 2021 Toileting hygiene: 3 Shower/bathe self: 4 Lower body dressin Putting on/taking off footwear: 3 OT Bead Wire Insulator Goals Fdc Goals Time Frame: Jul 24, 2021 Eating (QC): 6 Oral Hygiene (QC): 6 Toileting Hygiene (QC): 6 Shower/Bathe Self (QC): 6 Upper Body Dressing (QC): 6 Lower Body Dressing (QC): 6 On/Off Footwear (QC): 6 Additional Goals: 1-Demonstrate ADL Tasks, 2-Verbalize Understanding, 3- ImproveStrength/[place] 1=Demonstrate adherence to instructed precautions during ADL tasks. 2=Patient will verbalize/demonstrate understanding of assistive devices/modifications for ADL. 3=Patient will improve strength/tolerance for activity to enable patient to perform ADL's. OT Education/Plan Problem List/Assessment Assessment: Decreased Activ Tolerance, Decreased UE Strength, Impaired Self- Care Skills Discharge Recommendations Plan/Recommendations: Continue POC Treatment Plan/Plan of Care Patient would benefit from OT for education, treatment and training to promote independence in ADL's, mobility, safety and/or upper extremity function for ADL's. Plan of Care: ADL Retraining, Functional Mobility, Group Exercise/Act as Ind, UE Funct Exercise/Act Treatment Duration: Jul 24, 2021 Frequency: At least 5 of 7 days/Wk (IRF) Estimated Hrs Per Day: 1.5 hours per day Agreement: Yes Rehab Potential: Good Time/GCodes Start Time: 13:30 Stop Time: 14:00 Total Time Billed (hr/min): 30 Billed Treatment Time 1 visit-ADL 1 (15 min) EX 1 (15 min) ROSA M NOVA Jul 02, 2021 13:59
--- NOTE | 2021-07-02 15:06 | Physical Therapy Daily Note ---
PT Daily Note-Current Subjective Patient presented sitting in the chair and agreed to participate in physical therapy. Mental Status Patient Orientation: Person, Place, Time, Situation Attachments: Oxygen (3L NC) Transfers SCALE: Activities may be completed with or without assistive devices. 3-Ttdpfckwie-elwuhbn completes the activity by him/herself with no assistance from a helper. 5-Set-up or Clean-up Assistance-helper sets up or cleans up; patient completes activity. [place] assists only prior to or following the activity. 4-Supervision or Touching Assistance-helper provides verbal cues and/or touching/steadying and/or contact guard assistance as patient completes activity. Assistance may be provided throughout the activity or intermittently. 3-Partial/Moderate Assistance-helper does LESS THAN HALF the effort. [place] lifts, holds or supports trunk or limbs, but provides less than half the effort. 2-Substantial/Maximal Assistance-helper does MORE THAN HALF the effort. [place] lifts or holds trunk or limbs and provides more than half the effort. 1-Ywvobqoxe-skqjad does ALL the effort. Patient does none of the effort to complete the activity. Or, the assistance of 2 or more helpers is required for the patient to complete the activity. If activity was not attempted, code reason: 7-Patient Refused. 9-Not Applicable-not attempted and the patient did not perform the activity be fore the current illness, exacerbation or injury. 10-Not Attempted due to Environmental Limitations-(lack of equipment, weather restraints, etc.). 88-Not Attempted due to Medical Conditions or Safety Concerns. Sit to Stand (QC): 5 Gait Training Does the Patient Walk?: Yes Distance: 150x2 Walk 10 feet (QC): 4 Walk 50 ft with 2 Turns(QC): 4 Walk 150 ft (QC): 4 Gait Assistive Device: FWW Patient ambulated with FWW and SBA. Patient required rest breaks after 150' of ambulation due to SOA. Exercises Seated Therapy Exercises: Long arc quads, Hip flexion Seated Reps: 15 Patient required rest breaks due to SOA between exercises. Treatments Standing balance on Airex with 1 UE support on walker 2x 1' Seated exercises Ambulation Assessment Patient ambulated for 150' x2 with FWW and SBA. Patient required rest breaks due to fatigue after ambulation and between seated exercises. Patient reports SOA with exercise and ambulation. PT Short Term Goals Short Term Goals Time Frame: Jul 03, 2021 Roll Left & Right: 6 Sit to lyin Lying to sitting on side of be: 6 Sit to stand: 4 (CGA) Chair/cym-cd-sfxvl transfer: 4 (SBA) Walk 10 feet: 4 (SBA) Walk 50 feet with two turns: 4 (SBA) PT Residential Goals Top Case Assembler Goals PT Top Case Assembler Goals Time Frame: Jul 17, 2021 Roll Left & Right (QC): 6 Sit to Lying (QC): 6 Lying-Sitting on Side/Bed(QC): 6 Sit to Stand (QC): 4 (CGA) Chair/Dnz-do-Veerk Xfer(QC): 6 Toilet Transfer (QC): 6 Car Transfer (QC): 4 (CGA) Does the Patient Walk: Yes Walk 10 feet (QC): 6 Walk 50ft with 2 Turns (QC): 6 Walk 150 ft (QC): 6 Walking 10ft on Uneven Surface: 6 1 Step (curb) (QC): 4 (CGA) 4 Steps (QC): 4 (CGA) 12 Steps (QC): 88 Picking up an Object (QC): 6 Wheel 50 feet with 2 turns (QC: 9 Wheel 150 feet: 9 PT Plan Problem List Problem List: Activity Tolerance, Functional Strength, Safety, Balance, Gait, Transfer, Bed Mobility, ROM Treatment/Plan Treatment Plan: Continue Plan of Care Treatment Plan: Bed Mobility, Education, Functional Activity Queenie, Functional Strength, Group Therapy, Gait, Safety, Therapeutic Exercise, Transfers Treatment Duration: Jul 17, 2021 Frequency: At least 5 of 7 days/Wk (IRF) Estimated Hrs Per Day: 1.5 hours per day Patient and/or Family Agrees t: Yes Time/GCodes Time In: 1430 Time Out: 1500 Total Billed Treatment Time: 30 Total Billed Treatment 1 Visit FA 20 min EX 10 min TREY TSE PT Jul 02, 2021 15:06
[2021-07-02 20:10] VITALS: BP 115/57
[2021-07-02] MEDS: traZODone 50 MG (DESYREL) TAB PO SCH (22:01)
[2021-07-02] MEDS: [UNRECOGNIZED DRUG - REMARK] TOP SCH (22:02)
[2021-07-03] MEDS: oxyCODONE/APAP 5/325MG (PERCOCET 5) TABLET PO PRN ×3 (03:44→21:40)
[2021-07-03] MEDS: inSUlin ASPART (NovoLOG) 1 UNIT/0.01 ML (CHARGE PER UNIT) SC SCH ×4 (05:30→21:32)
--- NOTE | 2021-07-03 06:09 | PM&R Progress Note ---
Subjective HPI/CC On Admission Date Seen by Provider: Jul 03, 2021 Time Seen by Provider: 12:00 Subjective/Events-last exam 07/03/2021: Pt is doing well No major issues Moving to a new place upon discharge Discharge is planned for Tuesday07/02/2021: Pt is doing really well Sugar is okay No pain right now Hasn't had a pain pill today Checked meds and labs 07/01/2021: Pt is doing okay Checked meds and labs Sugars are good Leg edema is improved Takes 1-2 Percocet a day Heart rate of afib at 100 this morning Discharge planned for 07/08/21 06/30/2021: Pt is voiding well status post catheter removal We will cancel Dr. Roy consultation Checked meds and labs Doing very well 06/29/2021: Pt is doing really well Discontinued the cath today and he is able to void a little bit Urology will be consulted just in case he has retention Checked meds and labs Overall very stable 06/28/2021: Patient doing well Walking around with assistance We will discontinue Najera catheter tomorrow Check meds labs Blood sugars good 06/27/2021: Patient doing very well Settling in well Bowels moved today Slept really well last night for the first time in weeks EKG obtained showing atrial fibrillation Dr. Sumner will consult Kidney function stable Review of Systems General: Fatigue, Malaise Objective Exam Vital Signs Vital Signs Date Time Temp Pulse Resp B/P (MAP) Pulse Ox O2 Delivery O2 Flow Rate FiO2 07/03/21 21:30 Nasal Cannula 3.00 07/03/21 20:00 36.3 90 16 130/72 (91) 98 Capillary Refill : General Appearance: No Apparent Distress, WD/WN, Chronically ill, Obese HEENT: PERRL/EOMI, Normal ENT Inspection, Pharynx Normal Neck: Full Range of Motion, Normal Inspection, Non Tender, Supple, Carotid Bruit Respiratory: Chest Non Tender, Lungs Clear, Normal Breath Sounds, No Accessory Muscle Use, No Respiratory Distress Cardiovascular: Regular Rate, Rhythm, No Edema, No Gallop, No JVD, No Murmur, Normal Peripheral Pulses Gastrointestinal: Normal Bowel Sounds, No Organomegaly, No Pulsatile Mass, Non Tender, Soft Back: Normal Inspection, No CVA Tenderness, No Vertebral Tenderness Extremity: Normal Capillary Refill, Normal Inspection, Normal Range of Motion, Non Tender, No Calf Tenderness, No Pedal Edema Neurologic/Psychiatric: Alert, Oriented x3, No Motor/Sensory Deficits, Normal Mood/Affect, Abnormal Gait, Motor Weakness Skin: Normal Color, Warm/Dry Lymphatic: No Adenopathy Results/Procedures Lab Laboratory Tests 07/03/21 06:20 Patient resulted labs reviewed. FIM Transfers Therapy Code Descriptions/Definitions Functional [place] Measure: 0=Not Assessed/NA 4=Minimal Assistance 1=Total Assistance 5=Supervision or Setup 2=Maximal Assistance 6=Modified [place] 3=Moderate Assistance 7=Complete IndependenceSCALE: Activities may be completed with or without assistive devices. 9-Mvshsqplmi-lozrxnc completes the activity by him/herself with no assistance from a helper. 5-Set-up or Clean-up Assistance-helper sets up or cleans up; patient completes activity. [place] assists only prior to or following the activity. 4-Supervision or Touching Assistance-helper provides verbal cues and/or touching/steadying and/or contact guard assistance as patient completes activity. Assistance may be provided throughout the activity or intermittently. 3-Partial/Moderate Assistance-helper does LESS THAN HALF the effort. [place] lifts, holds or supports trunk or limbs, but provides less than half the effort. 2-Substantial/Maximal Assistance-helper does MORE THAN HALF the effort. [place] lifts or holds trunk or limbs and provides more than half the effort. 4-Akkwzxirg-wrxbsc does ALL the effort. Patient does none of the effort to complete the activity. Or, the assistance of 2 or more helpers is required for the patient to complete the activity. If activity was not attempted, code reason: 7-Patient Refused. 9-Not Applicable-not attempted and the patient did not perform the activity before the current illness, exacerbation or injury. 10-Not Attempted due to Environmental Limitations-(lack of equipment, weather restraints, etc.). 88-Not Attempted due to Medical Conditions or Safety Concerns. Roll Left to Right (QC): 6 Sit to Lying (QC): 6 Sit to Stand (QC): 5 Chair/Nad-rh-Peurz Xfer(QC): 6 Car Transfer (QC): 3 Gait Training Does the Patient Walk?: Yes Distance: 150x2 Walk 10 feet (QC): 4 Walk 50 ft with 2 Turns(QC): 4 Walk 150 ft (QC): 4 Walking 10ft/uneven surface-QC: 88 Gait Persons Needed: 1 Gait Assistive Device: FWW Wheelchair Training Does the Pt Use a Wheelchair?: No Wheel 50 ft with 2 turns (QC): 9 Wheel 150 ft (QC): 9 Stair Training 1 Step (curb) (QC): 88 4 Steps (QC): 88 12 Steps (QC): 88 Balance Picking up an Object (QC): 4 (CGA using patternmaker) ADL-Treatment Eating (QC): 6 Oral Hygiene (QC): 6 Shower/Bathe Self (QC): 3 Upper Body Dressing (QC): 5 Lower Body Dressing (QC): 4 On/Off Footwear (QC): 5 Toileting Hygiene (QC): 4 Toilet Transfer (QC): 4 Assessment/Plan Assessment and Plan Assess & Plan/Chief Complaint Assessment: Critical illness myopathy Recent new onset atrial fibrillation with RVR now normal sinus rhythm on amiodarone and Coreg Diabetes Hypertension Hyperlipidemia COPD CHF Chronic kidney disease stage III CAD previous bypass GERD HERMINIO Najera catheter in place now discontinued and voiding well Plan: Rehab protocol Restarted all meds from [facility] Supportive care 06/27/2021: Supportive care DC Najera catheter Tuesday in case urinary retention occurs and urology will be available 06/28/2021: Supportive care DC catheter tomorrow 06/29/2021: DC catheter Urology consultation 06/30/2021: Voiding well so we will discontinue urology consultation Continue aggressive therapy 07/01/2021: Supportive care Improved status 07/02/2021: Supportive care 07/03/2021: Discharge plan for Tuesday Supportive care (1) Chronic heart failure with preserved ejection fraction (HFpEF) Assessment & Plan: He reports a history of heart failure and was never told he had a low ejection fraction. I did review the records from the outside hospital a second time and could not find any echocardiogram report. He takes furosemide at home but presumably due to the acute kidney injury, this was stopped at the outside facility. His peripheral edema persists. I stopped his oral bumetanide due to a rise in his creatinine level. (2) Persistent atrial fibrillation Assessment & Plan: From his description, he underwent a cardioversion at the outside hospital but has been in atrial fibrillation in our hospital. His heart rate is controlled with amiodarone and carvedilol. I did adjust his Eliquis because he was not on the appropriate dose at the outside hospital. I do not see any urgent need for cardioversion. This will need to be followed closely by his outside customer order clerk following discharge. 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 He is not taking aspirin because he is on apixaban due to the atrial fibrillation. For unclear reasons, he is also on clopidogrel. This may need to be addressed by his regular outside customer order clerk following discharge. Dual pathway inhibition, particularly with clopidogrel, is not necessarily indicated unless the patient had a recent coronary stent or acute coronary syndrome. I recommend he continue on carvedilol and statin medication. (4) Primary hypertension Assessment & Plan: His blood pressures have improved since increasing his dose of carvedilol on 07/01. If any develops recurrent elevated blood pressures, I would maximize the dose of carvedilol. I would not prescribe amlodipine or his peripheral edema will likely become much worse. (5) Mixed hyperlipidemia Assessment & Plan: Continue atorvastatin. (6) Acute kidney injury superimposed on chronic kidney disease Assessment & Plan: I do not have a record of his baseline renal function. As above, his renal function appears to be worsening with diuretic which I have stopped. CARLENE BYRNE DO Jul 03, 2021 06:09
[2021-07-03 06:41] LABS: POTASSIUM 3.6 MMOL/L (3.6-5.0)
[2021-07-03 06:42] LABS: CALCIUM 8.6 MG/DL (8.5-10.1)
[2021-07-03 06:47] LABS: CREATININE SERUM 2.58 MG/DL (0.60-1.30)
[2021-07-03 07:38] VITALS: BP 138/65
[2021-07-03] MEDS: APIXABAN 2.5 MG (ELIQUIS) TABLET PO SCH ×2 (07:54→21:31)
[2021-07-03] MEDS: PANTOPRAZOLE 40 MG (PROTONIX) TAB PO SCH (07:54)
[2021-07-03] MEDS: AMIODARONE 200 MG (CORDARONE) TAB PO SCH (07:54)
[2021-07-03] MEDS: CLOPIDOGREL 75 MG (PLAVIX) TABLET PO SCH (07:54)
[2021-07-03] MEDS: polyethylene glycoL POWDER 17 GM (MIRALAX) PACK PO SCH ×2 (07:55→21:25)
[2021-07-03] MEDS: DOCUSATE SODIUM 100 MG (COLACE) CAP PO SCH ×2 (07:55→21:25)
[2021-07-03] MEDS: SENNA W/DOCUSATE (SENOKOT S) TABLET PO SCH ×2 (07:56→21:25)
--- NOTE | 2021-07-03 10:12 | Occupational Ther Daily Note ---
OT Current Status-Daily Note Subjective Pt alert, sitting in recliner. Pt agrees to therapy. No c/o pain. Mental Status/Objective Patient Orientation: Person, Place, Time, Situation Attachments: Oxygen (3L) ADL-Treatment Pt agrees to shower. Ambulated to bathroom and transferred into shower using FWW, SBA. Pt then completed all areas sitting on shower bench except to stand using grabbars to stabilize while assist to cleanse buttocks. Toilet tongs given to assist pt with reaching area, education given. Pt able complete all dressing by self after setup, does use AE for lower body and footwear dressing. Sitting at sink, pt complete oral care independently. Therapy Code Descriptions/Definitions Functional [place] Measure: 0=Not Assessed/NA 4=Minimal Assistance 1=Total Assistance 5=Supervision or Setup 2=Maximal Assistance 6=Modified [place] 3=Moderate Assistance 7=Complete IndependenceSCALE: Activities may be completed with or without assistive devices. 5-Xdcascrmqo-beiuxyx completes the activity by him/herself with no assistance from a helper. 5-Set-up or Clean-up Assistance-helper sets up or cleans up; patient completes activity. [place] assists only prior to or following the activity. 4-Supervision or Touching Assistance-helper provides verbal cues and/or touching/steadying and/or contact guard assistance as patient completes activity. Assistance may be provided throughout the activity or intermittently. 3-Partial/Moderate Assistance-helper does LESS THAN HALF the effort. [place] lifts, holds or supports trunk or limbs, but provides less than half the effort. 2-Substantial/Maximal Assistance-helper does MORE THAN HALF the effort. [place] lifts or holds trunk or limbs and provides more than half the effort. 6-Zaoanljyx-kjcdiw does ALL the effort. Patient does none of the effort to complete the activity. Or, the assistance of 2 or more helpers is required for the patient to complete the activity. If activity was not attempted, code reason: 7-Patient Refused. 9-Not Applicable-not attempted and the patient did not perform the activity before the current illness, exacerbation or injury. 10-Not Attempted due to Environmental Limitations-(lack of equipment, weather restraints, etc.). 88-Not Attempted due to Medical Conditions or Safety Concerns. Oral Hygiene (QC): 6 Shower/Bathe Self (QC): 3 Upper Body Dressing (QC): 5 Lower Body Dressing (QC): 5 On/Off Footwear: 5 Other Treatment Pt required skilled instruction to complete 3 of 7 exercises using light resistance theraband, 1 set 10 reps. After session, pt sitting in recliner with call light/phone in reach. All needs met in room. OT Short Term Goals Short Term Goals Time Frame: Jul 10, 2021 Toileting hygiene: 3 Shower/bathe self: 4 Lower body dressin Putting on/taking off footwear: 3 OT Regulatory Affairs Specialist Goals Regulatory Affairs Specialist Goals Time Frame: Jul 24, 2021 Eating (QC): 6 Oral Hygiene (QC): 6 Toileting Hygiene (QC): 6 Shower/Bathe Self (QC): 6 Upper Body Dressing (QC): 6 Lower Body Dressing (QC): 6 On/Off Footwear (QC): 6 Additional Goals: 1-Demonstrate ADL Tasks, 2-Verbalize Understanding, 3- ImproveStrength/Queenie 1=Demonstrate adherence to instructed precautions during ADL tasks. 2=Patient will verbalize/demonstrate understanding of assistive devices/modifications for ADL. 3=Patient will improve strength/tolerance for activity to enable patient to perform ADL's. OT Education/Plan Problem List/Assessment Assessment: Decreased Activ Tolerance, Decreased UE Strength, Impaired Self- Care Skills Discharge Recommendations Plan/Recommendations: Continue POC Treatment Plan/Plan of Care Patient would benefit from OT for education, treatment and training to promote independence in ADL's, mobility, safety and/or upper extremity function for ADL's. Plan of Care: ADL Retraining, Functional Mobility, Group Exercise/Act as Ind, UE Funct Exercise/Act Treatment Duration: Jul 24, 2021 Frequency: At least 5 of 7 days/Wk (IRF) Estimated Hrs Per Day: 1.5 hours per day Agreement: Yes Rehab Potential: Good Time/GCodes Start Time: 08:45 Stop Time: 10:15 Total Time Billed (hr/min): 90 Billed Treatment Time 1 visit-ADL 5 (75 min) EX 1 (15 min) ROSA M NOVA Jul 03, 2021 10:12
--- NOTE | 2021-07-03 12:11 | Physical Therapy Daily Note ---
PT Daily Note-Current Subjective Pt. agrees to Rx. AGrees to try step this date. Pain Numeric Pain Scale: 4 Location: Right Location Body Site: Knee Pain Description: Ache Mental Status Patient Orientation: Normal For Age Attachments: Oxygen (3L) Transfers SCALE: Activities may be completed with or without assistive devices. 0-Lprdqistnl-zyezsou completes the activity by him/herself with no assistance from a helper. 5-Set-up or Clean-up Assistance-helper sets up or cleans up; patient completes activity. [place] assists only prior to or following the activity. 4-Supervision or Touching Assistance-helper provides verbal cues and/or touchin g/steadying and/or contact guard assistance as patient completes activity. Assistance may be provided throughout the activity or intermittently. 3-Partial/Moderate Assistance-helper does LESS THAN HALF the effort. [place] lifts, holds or supports trunk or limbs, but provides less than half the effort. 2-Substantial/Maximal Assistance-helper does MORE THAN HALF the effort. [place] lifts or holds trunk or limbs and provides more than half the effort. 6-Vovntbqyq-zzrkeg does ALL the effort. Patient does none of the effort to complete the activity. Or, the assistance of 2 or more helpers is required for the patient to complete the activity. If activity was not attempted, code reason: 7-Patient Refused. 9-Not Applicable-not attempted and the patient did not perform the activity before the current illness, exacerbation or injury. 10-Not Attempted due to Environmental Limitations-(lack of equipment, weather restraints, etc.). 88-Not Attempted due to Medical Conditions or Safety Concerns. Roll Left & Right (QC): 6 Sit to Lying (QC): 6 Lying to Sitting/Side of Bed(Q: 6 Sit to Stand (QC): 6 Chair/Xjd-ud-Egzfm Xfer(QC): 6 Gait Training Does the Patient Walk?: Yes Walk 10 feet (QC): 4 Walk 50 ft with 2 Turns(QC): 4 Walk 150 ft (QC): 4 Gait Persons Needed: 1 Gait Assistive Device: FWW pt. requires assist only for O2 tank as he walks, no LOB Stair Training Stair Training: Handrails/: uses walker #of Steps: 2 Stairs: Pattern: Step to CGA up step x 2 trials Exercises Seated Therapy Exercises: Ankle pumps, Sit to stand, Long arc quads, Hip flexion Seated Reps: 15 Standing: Hip Abduction, Heel/toe raises, Marching, Mini squats Standing Reps: 12 NuStep Minutes: 10 NuStep Workload: 3 Assessment Current Status: Good Progress PT Short Term Goals Short Term Goals Time Frame: Jul 03, 2021 Roll Left & Right: 6 Sit to lyin Lying to sitting on side of be: 6 Sit to stand: 4 (CGA) Chair/zwr-pt-kheeg transfer: 4 (SBA) Walk 10 feet: 4 (SBA) Walk 50 feet with two turns: 4 (SBA) PT Air Export Agent Goals Snf Goals PT Snf Goals Time Frame: Jul 17, 2021 Roll Left & Right (QC): 6 Sit to Lying (QC): 6 Lying-Sitting on Side/Bed(QC): 6 Sit to Stand (QC): 4 (CGA) Chair/Thd-xz-Kvkvn Xfer(QC): 6 Toilet Transfer (QC): 6 Car Transfer (QC): 4 (CGA) Does the Patient Walk: Yes Walk 10 feet (QC): 6 Walk 50ft with 2 Turns (QC): 6 Walk 150 ft (QC): 6 Walking 10ft on Uneven Surface: 6 1 Step (curb) (QC): 4 (CGA) 4 Steps (QC): 4 (CGA) 12 Steps (QC): 88 Picking up an Object (QC): 6 Wheel 50 feet with 2 turns (QC: 9 Wheel 150 feet: 9 PT Plan Treatment/Plan Treatment Plan: Continue Plan of Care Treatment Plan: Bed Mobility, Education, Functional Activity Queenie, Functional Strength, Group Therapy, Gait, Safety, Therapeutic Exercise, Transfers Treatment Duration: Jul 17, 2021 Frequency: At least 5 of 7 days/Wk (IRF) Estimated Hrs Per Day: 1.5 hours per day Patient and/or Family Agrees t: Yes Safety Risks/Education Patient Education: Gait Training, Transfer Techniques, Steps, Correct Position ing, Disease Process, Safety Issues Teaching Recipient: Patient Teaching Methods: Demonstration, Discussion Response to Teaching: Verbalize Understanding, Return Demonstration, Reinforcement Needed Time/GCodes Time In: 1100 Time Out: 1200 Total Billed Treatment Time: 60 Total Billed Treatment 1,EX30m,GT15m,FA15m ROMEO LOVE CREDIT REPORTING CLERK Jul 03, 2021 12:11
--- NOTE | 2021-07-03 13:46 | Physical Therapy Daily Note ---
PT Daily Note-Current Subjective Pt. agrees to Tx. States he feels he is ready to try stair/ steps. Pt. expresses concern for using bathroom at new apartment and is requesting rails be put in at the toilet, Pain Location: No Pain Reported Mental Status Patient Orientation: Normal For Age Attachments: Oxygen (3L) Transfers SCALE: Activities may be completed with or without assistive devices. 3-Zugpbscfnn-ruqmgax completes the activity by him/herself with no assistance from a helper. 5-Set-up or Clean-up Assistance-helper sets up or cleans up; patient completes activity. [place] assists only prior to or following the activity. 4-Supervision or Touching Assistance-helper provides verbal cues and/or touching/steadying and/or contact guard assistance as patient completes activity. Assistance may be provided throughout the activity or intermittently. 3-Partial/Moderate Assistance-helper does LESS THAN HALF the effort. [place] lifts, holds or supports trunk or limbs, but provides less than half the effort. 2-Substantial/Maximal Assistance-helper does MORE THAN HALF the effort. [place] lifts or holds trunk or limbs and provides more than half the effort. 9-Eglpxdfip-iuom[place] does ALL the effort. Patient does none of the effort to complete the activity. Or, the assistance of 2 or more helpers is required for the patient to complete the activity. If activity was not attempted, code reason: 7-Patient Refused. 9-Not Applicable-not attempted and the patient did not perform the activity before the current illness, exacerbation or injury. 10-Not Attempted due to Environmental Limitations-(lack of equipment, weather restraints, etc.). 88-Not Attempted due to Medical Conditions or Safety Concerns. sit to stnd all mod I Gait Training Does the Patient Walk?: Yes Walk 150 ft (QC): 4 Gait Persons Needed: 1 Gait Assistive Device: FWW gait 165 ft x 2 requires assist for port O2, will practice with extended O2 tubing in AM as this is how pt. with function at home Stair Training Stair Training: Handrails/: 2 handrails #of Steps: 4 4 Steps (QC): 4 Stairs: Pattern: Step to insturction for sequence and hand placement Treatments gt, stairs, in recliner with call lazaro at hand, Assessment Current Status: Good Progress PT Short Term Goals Short Term Goals Time Frame: Jul 03, 2021 Roll Left & Right: 6 Sit to lyin Lying to sitting on side of be: 6 Sit to stand: 4 (CGA) Chair/ylh-ov-yvlii transfer: 4 (SBA) Walk 10 feet: 4 (SBA) Walk 50 feet with two turns: 4 (SBA) PT Sandwich Peddler Goals Skilled Nursing Goals PT Sandwich Peddler Goals Time Frame: Jul 17, 2021 Roll Left & Right (QC): 6 Sit to Lying (QC): 6 Lying-Sitting on Side/Bed(QC): 6 Sit to Stand (QC): 4 (CGA) Chair/Flq-gf-Lopnv Xfer(QC): 6 Toilet Transfer (QC): 6 Car Transfer (QC): 4 (CGA) Does the Patient Walk: Yes Walk 10 feet (QC): 6 Walk 50ft with 2 Turns (QC): 6 Walk 150 ft (QC): 6 Walking 10ft on Uneven Surface: 6 1 Step (curb) (QC): 4 (CGA) 4 Steps (QC): 4 (CGA) 12 Steps (QC): 88 Picking up an Object (QC): 6 Wheel 50 feet with 2 turns (QC: 9 Wheel 150 feet: 9 PT Plan Treatment/Plan Treatment Plan: Continue Plan of Care Treatment Plan: Bed Mobility, Education, Functional Activity [place], Functional Strength, Group Therapy, Gait, Safety, Therapeutic Exercise, Transfers Treatment Duration: Jul 17, 2021 Frequency: At least 5 of 7 days/Wk (IRF) Estimated Hrs Per Day: 1.5 hours per day Patient and/or Family Agrees t: Yes Safety Risks/Education Patient Education: Gait Training, Transfer Techniques, Steps, Correct Positioning, Disease Process, Safety Issues Teaching Recipient: Patient Teaching Methods: Demonstration, Discussion Response to Teaching: Verbalize Understanding, Return Demonstration, Reinforcement Needed Time/GCodes Time In: 1315 Time Out: 1345 Total Billed Treatment Time: 30 Total Billed Treatment 1,FA15m,GT15m ROMEO LOVE CLERK ENTRY LEVEL Jul 03, 2021 13:46
[2021-07-03 20:00] VITALS: BP 130/72
[2021-07-03] MEDS: traZODone 50 MG (DESYREL) TAB PO SCH (21:31)
[2021-07-03] MEDS: [UNRECOGNIZED DRUG - REMARK] TOP SCH (21:32)
[2021-07-04] MEDS: inSUlin ASPART (NovoLOG) 1 UNIT/0.01 ML (CHARGE PER UNIT) SC SCH ×4 (05:34→21:12)
--- NOTE | 2021-07-04 06:39 | PM&R Progress Note ---
Subjective HPI/CC On Admission Date Seen by Provider: Jul 04, 2021 Time Seen by Provider: 12:00 Subjective/Events-last exam 07/04/2021: Supportive care will continue Patient denies any new issues Breathing better Walking better No new pain 07/03/2021: Pt is doing well No major issues Moving to a new place upon discharge Discharge is planned for Tuesday07/02/2021: Pt is doing really well Sugar is okay No pain right now Hasn't had a pain pill today Checked meds and labs 07/01/2021: Pt is doing okay Checked meds and labs Sugars are good Leg edema is improved Takes 1-2 Percocet a day Heart rate of afib at 100 this morning Discharge planned for 07/08/21 06/30/2021: Pt is voiding well status post catheter removal We will cancel Dr. Roy consultation Checked meds and labs Doing very well 06/29/2021: Pt is doing really well Discontinued the cath today and he is able to void a little bit Urology will be consulted just in case he has retention Checked meds and labs Overall very stable 06/28/2021: Patient doing well Walking around with assistance We will discontinue Najera catheter tomorrow Check meds labs Blood sugars good 06/27/2021: Patient doing very well Settling in well Bowels moved today Slept really well last night for the first time in weeks EKG obtained showing atrial fibrillation Dr. Sumner will consult Kidney function stable Review of Systems General: Fatigue, Malaise Pulmonary: Dyspnea Objective Exam Vital Signs Vital Signs Date Time Temp Pulse Resp B/P (MAP) Pulse Ox O2 Delivery O2 Flow Rate FiO2 07/04/21 22:25 99 Nasal Cannula 3.00 07/04/21 20:00 36.2 76 19 139/71 (93) Capillary Refill : General Appearance: No Apparent Distress, WD/WN, Chronically ill, Obese HEENT: PERRL/EOMI, Normal ENT Inspection, Pharynx Normal Neck: Full Range of Motion, Normal Inspection, Non Tender, Supple, Carotid Bruit Respiratory: Chest Non Tender, Lungs Clear, Normal Breath Sounds, No Accessory Muscle Use, No Respiratory Distress Cardiovascular: Regular Rate, Rhythm, No Edema, No Gallop, No JVD, No Murmur, Normal Peripheral Pulses Gastrointestinal: Normal Bowel Sounds, No Organomegaly, No Pulsatile Mass, Non Tender, Soft Back: Normal Inspection, No CVA Tenderness, No Vertebral Tenderness Extremity: Normal Capillary Refill, Normal Inspection, Normal Range of Motion, Non Tender, No Calf Tenderness, No Pedal Edema Neurologic/Psychiatric: Alert, Oriented x3, No Motor/Sensory Deficits, Normal Mood/Affect, Abnormal Gait, Motor Weakness Skin: Normal Color, Warm/Dry Lymphatic: No Adenopathy Results/Procedures Lab Patient resulted labs reviewed. FIM Transfers Therapy Code Descriptions/Definitions Functional [place] Measure: 0=Not Assessed/NA 4=Minimal Assistance 1=Total Assistance 5=Supervision or Setup 2=Maximal Assistance 6=Modified [place] 3=Moderate Assistance 7=Complete IndependenceSCALE: Activities may be completed with or without assistive devices. 3-Yfzmsukaij-yqtljok completes the activity by him/herself with no assistance from a helper. 5-Set-up or Clean-up Assistance-helper sets up or cleans up; patient completes activity. [place] assists only prior to or following the activity. 4-Supervision or Touching Assistance-helper provides verbal cues and/or touch ing/steadying and/or contact guard assistance as patient completes activity. Assistance may be provided throughout the activity or intermittently. 3-Partial/Moderate Assistance-helper does LESS THAN HALF the effort. [place] lifts, holds or supports trunk or limbs, but provides less than half the effort. 2-Substantial/Maximal Assistance-helper does MORE THAN HALF the effort. [place] lifts or holds trunk or limbs and provides more than half the effort. 5-Grdmgkiqy-mkszzh does ALL the effort. Patient does none of the effort to complete the activity. Or, the assistance of 2 or more helpers is required for the patient to complete the activity. If activity was not attempted, code reason: 7-Patient Refused. 9-Not Applicable-not attempted and the patient did not perform the activity before the current illness, exacerbation or injury. 10-Not Attempted due to Environmental Limitations-(lack of equipment, weather restraints, etc.). 88-Not Attempted due to Medical Conditions or Safety Concerns. Roll Left to Right (QC): 6 Sit to Lying (QC): 6 Sit to Stand (QC): 6 Chair/Cec-hg-Xuhrp Xfer(QC): 6 Car Transfer (QC): 3 Gait Training Does the Patient Walk?: Yes Distance: 150x2 Walk 10 feet (QC): 4 Walk 50 ft with 2 Turns(QC): 4 Walk 150 ft (QC): 4 Walking 10ft/uneven surface-QC: 88 Gait Persons Needed: 1 Gait Assistive Device: FWW Wheelchair Training Does the Pt Use a Wheelchair?: No Wheel 50 ft with 2 turns (QC): 9 Wheel 150 ft (QC): 9 Stair Training Stair Training: Handrails/: 2 handrails #of Steps: 4 1 Step (curb) (QC): 88 4 Steps (QC): 4 12 Steps (QC): 88 Stairs: Pattern: Step to Balance Picking up an Object (QC): 4 (CGA using network relations consultant) ADL-Treatment Eating (QC): 6 Oral Hygiene (QC): 6 Shower/Bathe Self (QC): 3 Upper Body Dressing (QC): 5 Lower Body Dressing (QC): 5 On/Off Footwear (QC): 5 Toileting Hygiene (QC): 4 Toilet Transfer (QC): 4 Assessment/Plan Assessment and Plan Assess & Plan/Chief Complaint Assessment: Critical illness myopathy Recent new onset atrial fibrillation with RVR now normal sinus rhythm on amiodarone and Coreg Diabetes Hypertension Hyperlipidemia COPD CHF Chronic kidney disease stage III CAD previous bypass GERD HERMINIO Najera catheter in place now discontinued and voiding well Plan: Rehab protocol Restarted all meds from [facility] Supportive care 06/27/2021: Supportive care DC Najera catheter Tuesday in case urinary retention occurs and urology will be available 06/28/2021: Supportive care DC catheter tomorrow 06/29/2021: DC catheter Urology consultation 06/30/2021: Voiding well so we will discontinue urology consultation Continue aggressive therapy 07/01/2021: Supportive care Improved status 07/02/2021: Supportive care 07/03/2021: Discharge plan for Tuesday Supportive care 07/04/2021: Discharge on Tuesday (1) Chronic heart failure with preserved ejection fraction (HFpEF) Assessment & Plan: He reports a history of heart failure and was never told he had a low ejection fraction. I did review the records from the outside hospital a second time and could not find any echocardiogram report. He takes furosemide at home but presumably due to the acute kidney injury, this was stopped at the outside facility. His peripheral edema persists. I stopped his oral bumetanide due to a rise in his creatinine level. (2) Persistent atrial fibrillation Assessment & Plan: From his description, he underwent a cardioversion at the outside hospital but has been in atrial fibrillation in our hospital. His heart rate is controlled with amiodarone and carvedilol. I did adjust his Eliquis because he was not on the appropriate dose at the outside hospital. I do not see any urgent need for cardioversion. This will need to be followed closely by his outside [facility] following discharge. 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 He is not taking aspirin because he is on apixaban due to the atrial fibrillation. For unclear reasons, he is also on clopidogrel. This may need to be addressed by his regular outside [facility] following discharge. Dual pathway inhibition, particularly with clopidogrel, is not necessarily indicated unless the patient had a recent coronary stent or acute coronary syndrome. I recommend he continue on carvedilol and statin medication. (4) Primary hypertension Assessment & Plan: His blood pressures have improved since increasing his dose of carvedilol on 07/01. If any develops recurrent elevated blood pressures, I would maximize the dose of carvedilol. I would not prescribe amlodipine or his peripheral edema will likely become much worse. (5) Mixed hyperlipidemia Assessment & Plan: Continue atorvastatin. (6) Acute kidney injury superimposed on chronic kidney disease Assessment & Plan: I do not have a record of his baseline renal function. As above, his renal function appears to be worsening with diuretic which I have stopped. CARLENE YBRNE DO Jul 04, 2021 06:39
[2021-07-04 07:30] VITALS: BP 133/73
[2021-07-04] MEDS: CLOPIDOGREL 75 MG (PLAVIX) TABLET PO SCH (09:38)
[2021-07-04] MEDS: PANTOPRAZOLE 40 MG (PROTONIX) TAB PO SCH (09:38)
[2021-07-04] MEDS: AMIODARONE 200 MG (CORDARONE) TAB PO SCH (09:39)
[2021-07-04] MEDS: DOCUSATE SODIUM 100 MG (COLACE) CAP PO SCH ×2 (09:39→21:13)
[2021-07-04] MEDS: APIXABAN 2.5 MG (ELIQUIS) TABLET PO SCH ×2 (09:39→21:13)
--- NOTE | 2021-07-04 09:46 | Physical Therapy Daily Note ---
PT Daily Note-Current Subjective Pt. states "this has all caught up with me and I'm going to need a nap as soon as were finished here." Agrees to gait and seated LE ex Pain Location: No Pain Reported Mental Status Patient Orientation: Normal For Age Attachments: Oxygen (3L), Other-See Comments (neoprene knee brace right knee) Transfers SCALE: Activities may be completed with or without assistive devices. 6-Xwtoddljgo-fuqndrv completes the activity by him/herself with no assistance from a helper. 5-Set-up or Clean-up Assistance-helper sets up or cleans up; patient completes activity. [place] assists only prior to or following the activity. 4-Supervision or Touching Assistance-helper provides verbal cues and/or t ouching/steadying and/or contact guard assistance as patient completes activity. Assistance may be provided throughout the activity or intermittently. 3-Partial/Moderate Assistance-helper does LESS THAN HALF the effort. [place] lifts, holds or supports trunk or limbs, but provides less than half the effort. 2-Substantial/Maximal Assistance-helper does MORE THAN HALF the effort. [place] lifts or holds trunk or limbs and provides more than half the effort. 2-Symuvuexk-jutlln does ALL the effort. Patient does none of the effort to complete the activity. Or, the assistance of 2 or more helpers is required for the patient to complete the activity. If activity was not attempted, code reason: 7-Patient Refused. 9-Not Applicable-not attempted and the patient did not perform the activity before the current illness, exacerbation or injury. 10-Not Attempted due to Environmental Limitations-(lack of equipment, weather restraints, etc.). 88-Not Attempted due to Medical Conditions or Safety Concerns. Roll Left & Right (QC): 6 Sit to Lying (QC): 6 Sit to Stand (QC): 6 Chair/Sho-xp-Xeovu Xfer(QC): 6 Gait Training Does the Patient Walk?: Yes Walk 10 feet (QC): 4 Walk 50 ft with 2 Turns(QC): 4 Walk 150 ft (QC): 4 Gait Persons Needed: 1 Gait Assistive Device: FWW no LOB or incident, requires assist for O2 tank/tubing Exercises Seated Therapy Exercises: Ankle pumps, Sit to stand, Long arc quads, Hip flexion, Hip abd/add Seated Reps: 12 Treatments gait and therex , TRF into bed, pt. has concentrator and extended O2 tubing at home and claims he uses it fine but has no regard for twisting in it and doesnt pay attention to where it is, will plan to use extended tubing Mon to mimic home O2 use for safety etc. Pt needs encouraged to do all he can for himself, ie button on bed, reaching a drink within his reach etc. Reminded pt. he is practicing for home to be as indep as possible Assessment Current Status: Good Progress PT Short Term Goals Short Term Goals Time Frame: Jul 03, 2021 Roll Left & Right: 6 Sit to lyin Lying to sitting on side of be: 6 Sit to stand: 4 (CGA) Chair/wbu-kz-sywcm transfer: 4 (SBA) Walk 10 feet: 4 (SBA) Walk 50 feet with two turns: 4 (SBA) PT Representative Government Relations Goals Representative Government Relations Goals PT Representative Government Relations Goals Time Frame: Jul 17, 2021 Roll Left & Right (QC): 6 Sit to Lying (QC): 6 Lying-Sitting on Side/Bed(QC): 6 Sit to Stand (QC): 4 (CGA) Chair/Vbr-qk-Riipc Xfer(QC): 6 Toilet Transfer (QC): 6 Car Transfer (QC): 4 (CGA) Does the Patient Walk: Yes Walk 10 feet (QC): 6 Walk 50ft with 2 Turns (QC): 6 Walk 150 ft (QC): 6 Walking 10ft on Uneven Surface: 6 1 Step (curb) (QC): 4 (CGA) 4 Steps (QC): 4 (CGA) 12 Steps (QC): 88 Picking up an Object (QC): 6 Wheel 50 feet with 2 turns (QC: 9 Wheel 150 feet: 9 PT Plan Treatment/Plan Treatment Plan: Continue Plan of Care Treatment Plan: Bed Mobility, Education, Functional Activity [place], Functional Strength, Group Therapy, Gait, Safety, Therapeutic Exercise, Transfers Treatment Duration: Jul 17, 2021 Frequency: At least 5 of 7 days/Wk (IRF) Estimated Hrs Per Day: 1.5 hours per day Patient and/or Family Agrees t: Yes Safety Risks/Education Patient Education: Gait Training, Transfer Techniques, Correct Positioning, Disease Process, Safety Issues Teaching Recipient: Patient Teaching Methods: Demonstration, Discussion Response to Teaching: Verbalize Understanding, Return Demonstration, Reinforcement Needed Time/GCodes Time In: 920 Time Out: 940 Total Billed Treatment Time: 20 Total Billed Treatment 1,GT20m ROMEO LOVE SOCK BOARDER Jul 04, 2021 09:46
[2021-07-04] MEDS: SENNA W/DOCUSATE (SENOKOT S) TABLET PO SCH ×2 (09:47→21:13)
[2021-07-04] MEDS: polyethylene glycoL POWDER 17 GM (MIRALAX) PACK PO SCH ×2 (09:47→21:00)
[2021-07-04] MEDS: oxyCODONE/APAP 5/325MG (PERCOCET 5) TABLET PO PRN ×3 (09:52→22:28)
[2021-07-04 20:00] VITALS: BP 139/71
[2021-07-04] MEDS: traZODone 50 MG (DESYREL) TAB PO SCH (21:13)
[2021-07-04] MEDS: [UNRECOGNIZED DRUG - REMARK] TOP SCH (21:14)
[2021-07-05] MEDS: inSUlin ASPART (NovoLOG) 1 UNIT/0.01 ML (CHARGE PER UNIT) SC SCH ×4 (06:13→22:04)
[2021-07-05 07:29] VITALS: BP 125/60
--- NOTE | 2021-07-05 07:48 | PM&R Progress Note ---
Subjective HPI/CC On Admission Date Seen by Provider: Jul 05, 2021 Time Seen by Provider: 12:15 Subjective/Events-last exam 07/05/2021: Patient doing well No significant concerns Edema issues were discussed Delicate balance with elevated creatinine and edema 07/04/2021: Supportive care will continue Patient denies any new issues Breathing better Walking better No new pain 07/03/2021: Pt is doing well No major issues Moving to a new place upon discharge Discharge is planned for Tuesday07/02/2021: Pt is doing really well Sugar is okay No pain right now Hasn't had a pain pill today Checked meds and labs 07/01/2021: Pt is doing okay Checked meds and labs Sugars are good Leg edema is improved Takes 1-2 Percocet a day Heart rate of afib at 100 this morning Discharge planned for 07/08/21 06/30/2021: Pt is voiding well status post catheter removal We will cancel Dr. Roy consultation Checked meds and labs Doing very well 06/29/2021: Pt is doing really well Discontinued the cath today and he is able to void a little bit Urology will be consulted just in case he has retention Checked meds and labs Overall very stable 06/28/2021: Patient doing well Walking around with assistance We will discontinue Najera catheter tomorrow Check meds labs Blood sugars good 06/27/2021: Patient doing very well Settling in well Bowels moved today Slept really well last night for the first time in weeks EKG obtained showing atrial fibrillation Dr. Sumner will consult Kidney function stable Review of Systems General: Fatigue, Malaise Cardiovascular: Edema Objective Exam Vital Signs Vital Signs Date Time Temp Pulse Resp B/P (MAP) Pulse Ox O2 Delivery O2 Flow Rate FiO2 07/05/21 08:36 Nasal Cannula 3.00 07/05/21 07:29 36.2 87 18 125/60 (81) 97 Capillary Refill : General Appearance: No Apparent Distress, WD/WN, Chronically ill, Obese HEENT: PERRL/EOMI, Normal ENT Inspection, Pharynx Normal Neck: Full Range of Motion, Normal Inspection, Non Tender, Supple, Carotid Bruit Respiratory: Chest Non Tender, Lungs Clear, Normal Breath Sounds, No Accessory Muscle Use, No Respiratory Distress Cardiovascular: Regular Rate, Rhythm, No Edema, No Gallop, No JVD, No Murmur, Normal Peripheral Pulses Gastrointestinal: Normal Bowel Sounds, No Organomegaly, No Pulsatile Mass, Non Tender, Soft Back: Normal Inspection, No CVA Tenderness, No Vertebral Tenderness Extremity: Normal Capillary Refill, Normal Inspection, Normal Range of Motion, Non Tender, No Calf Tenderness, No Pedal Edema Neurologic/Psychiatric: Alert, Oriented x3, No Motor/Sensory Deficits, Normal Mood/Affect, Abnormal Gait, Motor Weakness Skin: Normal Color, Warm/Dry Lymphatic: No Adenopathy Results/Procedures Lab Patient resulted labs reviewed. FIM Transfers Therapy Code Descriptions/Definitions Functional [place] Measure: 0=Not Assessed/NA 4=Minimal Assistance 1=Total Assistance 5=Supervision or Setup 2=Maximal Assistance 6=Modified [place] 3=Moderate Assistance 7=Complete IndependenceSCALE: Activities may be completed with or without assistive devices. 9-Vhjjtdtthl-dbbcnzt completes the activity by him/herself with no assistance from a helper. 5-Set-up or Clean-up Assistance-helper sets up or cleans up; patient completes activity. [place] assists only prior to or following the activity. 4-Supervision or Touching Assistance-helper provides verbal cues and/or touching/steadying and/or contact guard assistance as patient completes activity. Assistance may be provided throughout the activity or intermittently. 3-Partial/Moderate Assistance-helper does LESS THAN HALF the effort. [place] lifts, holds or supports trunk or limbs, but provides less than half the effort. 2-Substantial/Maximal Assistance-helper does MORE THAN HALF the effort. [place] lifts or holds trunk or limbs and provides more than half the effort. 7-Fqfaegadz-uydddv does ALL the effort. Patient does none of the effort to complete the activity. Or, the assistance of 2 or more helpers is required for the patient to complete the activity. If activity was not attempted, code reason: 7-Patient Refused. 9-Not Applicable-not attempted and the patient did not perform the activity before the current illness, exacerbation or injury. 10-Not Attempted due to Environmental Limitations-(lack of equipment, weather restraints, etc.). 88-Not Attempted due to Medical Conditions or Safety Concerns. Roll Left to Right (QC): 6 Sit to Lying (QC): 6 Sit to Stand (QC): 6 Chair/Fhc-je-Qlxqp Xfer(QC): 6 Car Transfer (QC): 3 Gait Training Does the Patient Walk?: Yes Distance: 150x2 Walk 10 feet (QC): 4 Walk 50 ft with 2 Turns(QC): 4 Walk 150 ft (QC): 4 Walking 10ft/uneven surface-QC: 88 Gait Persons Needed: 1 Gait Assistive Device: FWW Wheelchair Training Does the Pt Use a Wheelchair?: No Wheel 50 ft with 2 turns (QC): 9 Wheel 150 ft (QC): 9 Stair Training Stair Training: Handrails/: 2 handrails #of Steps: 4 1 Step (curb) (QC): 88 4 Steps (QC): 4 12 Steps (QC): 88 Stairs: Pattern: Step to Balance Picking up an Object (QC): 4 (CGA using workflow developer) ADL-Treatment Eating (QC): 6 Oral Hygiene (QC): 6 Shower/Bathe Self (QC): 3 Upper Body Dressing (QC): 5 Lower Body Dressing (QC): 5 On/Off Footwear (QC): 5 Toileting Hygiene (QC): 4 Toilet Transfer (QC): 4 Assessment/Plan Assessment and Plan Assess & Plan/Chief Complaint Assessment: Critical illness myopathy Recent new onset atrial fibrillation with RVR now normal sinus rhythm on amiodarone and Coreg Diabetes Hypertension Hyperlipidemia COPD CHF Chronic kidney disease stage III CAD previous bypass GERD HERMINIO Najera catheter in place now discontinued and voiding well Plan: Rehab protocol Restarted all meds from [place] Supportive care 06/27/2021: Supportive care DC Najera catheter Tuesday in case urinary retention occurs and urology will be available 06/28/2021: Supportive care DC catheter tomorrow 06/29/2021: DC catheter Urology consultation 06/30/2021: Voiding well so we will discontinue urology consultation Continue aggressive therapy 07/01/2021: Supportive care Improved status 07/02/2021: Supportive care 07/03/2021: Discharge plan for Tuesday Supportive care 07/04/2021: Discharge on Tuesday07/05/2021: Diuretic to discuss with cardiology Check meds and labs (1) Chronic heart failure with preserved ejection fraction (HFpEF) Assessment & Plan: He reports a history of heart failure and was never told he had a low ejection fraction. I did review the records from the outside hospital a second time and could not find any echocardiogram report. He takes furosemide at home but presumably due to the acute kidney injury, this was stopped at the outside facility. His peripheral edema persists. I stopped his oral bumetanide due to a rise in his creatinine level. (2) Persistent atrial fibrillation Assessment & Plan: From his description, he underwent a cardioversion at the outside hospital but has been in atrial fibrillation in our hospital. His heart rate is controlled with amiodarone and carvedilol. I did adjust his Eliquis because he was not on the appropriate dose at the outside hospital. I do not see any urgent need for cardioversion. This will need to be followed closely by his outside med care manager following discharge. 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 He is not taking aspirin because he is on apixaban due to the atrial fibrillation. For unclear reasons, he is also on clopidogrel. This may need to be addressed by his regular outside med care manager following discharge. Dual pathway inhibition, particularly with clopidogrel, is not necessarily indicated unless the patient had a recent coronary stent or acute coronary syndrome. I recommend he continue on carvedilol and statin medication. (4) Primary hypertension Assessment & Plan: His blood pressures have improved since increasing his dose of carvedilol on 07/01. If any develops recurrent elevated blood pressures, I would maximize the dose of carvedilol. I would not prescribe amlodipine or his peripheral edema will likely become much worse. (5) Mixed hyperlipidemia Assessment & Plan: Continue atorvastatin. (6) Acute kidney injury superimposed on chronic kidney disease Assessment & Plan: I do not have a record of his baseline renal function. As ab staley, his renal function appears to be worsening with diuretic which I have stopped. CARLENE BYRNE DO Jul 05, 2021 07:48
[2021-07-05] MEDS: DOCUSATE SODIUM 100 MG (COLACE) CAP PO SCH ×2 (08:23→22:03)
[2021-07-05] MEDS: PANTOPRAZOLE 40 MG (PROTONIX) TAB PO SCH (08:23)
[2021-07-05] MEDS: AMIODARONE 200 MG (CORDARONE) TAB PO SCH (08:23)
[2021-07-05] MEDS: CLOPIDOGREL 75 MG (PLAVIX) TABLET PO SCH (08:23)
[2021-07-05] MEDS: APIXABAN 2.5 MG (ELIQUIS) TABLET PO SCH ×2 (08:23→22:02)
[2021-07-05] MEDS: oxyCODONE/APAP 5/325MG (PERCOCET 5) TABLET PO PRN ×3 (08:24→23:00)
[2021-07-05] MEDS: polyethylene glycoL POWDER 17 GM (MIRALAX) PACK PO SCH ×2 (12:15→22:03)
[2021-07-05] MEDS: SENNA W/DOCUSATE (SENOKOT S) TABLET PO SCH ×2 (12:15→22:03)
[2021-07-05 19:57] VITALS: BP 142/65
[2021-07-05] MEDS: traZODone 50 MG (DESYREL) TAB PO SCH (22:01)
[2021-07-05] MEDS: [UNRECOGNIZED DRUG - REMARK] TOP SCH (22:04)
[2021-07-06] MEDS: oxyCODONE/APAP 5/325MG (PERCOCET 5) TABLET PO PRN ×3 (04:04→21:00)
--- NOTE | 2021-07-06 05:27 | PM&R Progress Note ---
Subjective HPI/CC On Admission Date Seen by Provider: Jul 06, 2021 Time Seen by Provider: 11:00 Subjective/Events-last exam 07/06/21: Pt is doing good Dr. Horn will see him for toenail care Bowels moved yesterday No major issues Creatinine is 2.[address] Del Valle will evaluate diuretics 07/05/2021: Patient doing well No significant concerns Edema issues were discussed Delicate balance with elevated creatinine and edema 07/04/2021: Supportive care will continue Patient denies any new issues Breathing better Walking better No new pain 07/03/2021: Pt is doing well No major issues Moving to a new place upon discharge Discharge is planned for Tuesday07/02/2021: Pt is doing really well Sugar is okay No pain right now Hasn't had a pain pill today Checked meds and labs 07/01/2021: Pt is doing okay Checked meds and labs Sugars are good Leg edema is improved Takes 1-2 Percocet a day Heart rate of afib at 100 this morning Discharge planned for 07/08/21 06/30/2021: Pt is voiding well status post catheter removal We will cancel Dr. Roy consultation Checked meds and labs Doing very well 06/29/2021: Pt is doing really well Discontinued the cath today and he is able to void a little bit Urology will be consulted just in case he has retention Checked meds and labs Overall very stable 06/28/2021: Patient doing well Walking around with assistance We will discontinue Najera catheter tomorrow Check meds labs Blood sugars good 06/27/2021: Patient doing very well Settling in well Bowels moved today Slept really well last night for the first time in weeks EKG obtained showing atrial fibrillation Dr. Sumner will consult Kidney function stable Review of Systems General: Fatigue, Malaise Cardiovascular: Edema Objective Exam Vital Signs Vital Signs Date Time Temp Pulse Resp B/P (MAP) Pulse Ox O2 Delivery O2 Flow Rate FiO2 07/06/21 21:12 Nasal Cannula 3.00 07/06/21 20:29 36.2 67 18 120/60 (80) 97 Capillary Refill : General Appearance: No Apparent Distress, WD/WN, Chronically ill, Obese HEENT: PERRL/EOMI, Normal ENT Inspection, Pharynx Normal Neck: Full Range of Motion, Normal Inspection, Non Tender, Supple, Carotid Bruit Respiratory: Chest Non Tender, Lungs Clear, Normal Breath Sounds, No Accessory Muscle Use, No Respiratory Distress Cardiovascular: Regular Rate, Rhythm, No Edema, No Gallop, No JVD, No Murmur, Normal Peripheral Pulses Gastrointestinal: Normal Bowel Sounds, No Organomegaly, No Pulsatile Mass, Non Tender, Soft Back: Normal Inspection, No CVA Tenderness, No Vertebral Tenderness Extremity: Normal Capillary Refill, Normal Inspection, Normal Range of Motion, Non Tender, No Calf Tenderness, No Pedal Edema Neurologic/Psychiatric: Alert, Oriented x3, No Motor/Sensory Deficits, Normal Mood/Affect, Abnormal Gait, Motor Weakness Skin: Normal Color, Warm/Dry Lymphatic: No Adenopathy Results/Procedures Lab Laboratory Tests 07/06/21 05:38 Patient resulted labs reviewed. FIM Transfers Therapy Code Descriptions/Definitions Functional [place] Measure: 0=Not Assessed/NA 4=Minimal Assistance 1=Total Assistance 5=Supervision or Setup 2=Maximal Assistance 6=Modified [place] 3=Moderate Assistance 7=Complete IndependenceSCALE: Activities may be completed with or without assistive devices. 9-Jcohttllrz-ybythqo completes the activity by him/herself with no assistance from a helper. 5-Set-up or Clean-up Assistance-helper sets up or cleans up; patient completes activity. [place] assists only prior to or following the activity. 4-Supervision or Touching Assistance-helper provides verbal cues and/or touching/steadying and/or contact guard assistance as patient completes activity. Assistance may be provided throughout the activity or intermittently. 3-Partial/Moderate Assistance-helper does LESS THAN HALF the effort. [place] lifts, holds or supports trunk or limbs, but provides less than half the effort. 2-Substantial/Maximal Assistance-helper does MORE THAN HALF the effort. [place] lifts or holds trunk or limbs and provides more than half the effort. 2-Vgppevjvk-igqgun does ALL the effort. Patient does none of the effort to complete the activity. Or, the assistance of 2 or more helpers is required for the patient to complete the activity. If activity was not attempted, code reason: 7-Patient Refused. 9-Not Applicable-not attempted and the patient did not perform the activity before the current illness, exacerbation or injury. 10-Not Attempted due to Environmental Limitations-(lack of equipment, weather restraints, etc.). 88-Not Attempted due to Medical Conditions or Safety Concerns. Roll Left to Right (QC): 6 Sit to Lying (QC): 6 Sit to Stand (QC): 6 Chair/Old-ox-Xitjg Xfer(QC): 6 Car Transfer (QC): 3 Gait Training Does the Patient Walk?: Yes Distance: 150x2 Walk 10 feet (QC): 4 Walk 50 ft with 2 Turns(QC): 4 Walk 150 ft (QC): 4 Walking 10ft/uneven surface-QC: 88 Gait Persons Needed: 1 Gait Assistive Device: FWW Wheelchair Training Does the Pt Use a Wheelchair?: No Wheel 50 ft with 2 turns (QC): 9 Wheel 150 ft (QC): 9 Stair Training Stair Training: Handrails/: 2 handrails #of Steps: 4 1 Step (curb) (QC): 88 4 Steps (QC): 4 12 Steps (QC): 88 Stairs: Pattern: Step to Balance Picking up an Object (QC): 4 (CGA using infirmary attendant) ADL-Treatment Eating (QC): 6 Oral Hygiene (QC): 6 Shower/Bathe Self (QC): 3 Upper Body Dressing (QC): 5 Lower Body Dressing (QC): 5 On/Off Footwear (QC): 5 Toileting Hygiene (QC): 4 Toilet Transfer (QC): 4 Assessment/Plan Assessment and Plan Assess & Plan/Chief Complaint Assessment: Critical illness myopathy Recent new onset atrial fibrillation with RVR now normal sinus rhythm on amiodarone and Coreg Diabetes Hypertension Hyperlipidemia COPD CHF Chronic kidney disease stage III CAD previous bypass GERD HERMINIO Najera catheter in place now discontinued and voiding well Edema Plan: Rehab protocol Restarted all meds from [place] Supportive care 06/27/2021: Supportive care DC Najera catheter Tuesday in case urinary retention occurs and urology will be available 06/28/2021: Supportive care DC catheter tomorrow 06/29/2021: DC catheter Urology consultation 06/30/2021: Voiding well so we will discontinue urology consultation Continue aggressive therapy 07/01/2021: Supportive care Improved status 07/02/2021: Supportive care 07/03/2021: Discharge plan for Tuesday Supportive care 07/04/2021: Discharge on Tuesday07/05/2021: Diuretic to discuss with cardiology Check meds and labs 07/06/2021: Appreciate cardiology Diuretics (1) Chronic heart failure with preserved ejection fraction (HFpEF) Assessment & Plan: He reports a history of heart failure and was never told he had a low ejection fraction. I did review the records from the outside hospital a second time and could not find any echocardiogram report. He takes furosemide at home but presumably due to the acute kidney injury, this was stopped at the outside facility. His peripheral edema persists. I stopped his oral bumetanide due to a rise in his creatinine level. (2) Persistent atrial fibrillation Assessment & Plan: From his description, he underwent a cardioversion at the outside hospital but has been in atrial fibrillation in our hospital. His heart rate is controlled with amiodarone and carvedilol. I did adjust his Eliquis because he was not on the appropriate dose at the outside hospital. I do not see any urgent need for cardioversion. This will need to be followed closely by his outside resource coordinator following discharge. 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 He is not taking aspirin because he is on apixaban due to the atrial fibrillation. For unclear reasons, he is also on clopidogrel. This may need to be addressed by his regular outside resource coordinator following discharge. Dual pathway inhibition, particularly with clopidogrel, is not necessarily indicated unless the patient had a recent coronary stent or acute coronary syndrome. I recommend he continue on carvedilol and statin medication. (4) Primary hypertension Assessment & Plan: His blood pressures have improved since increasing his dose of carvedilol on 07/01. If any develops recurrent elevated blood pressures, I would maximize the dose of carvedilol. I would not prescribe amlodipine or his peripheral edema will likely become much worse. (5) Mixed hyperlipidemia Assessment & Plan: Continue atorvastatin. (6) Acute kidney injury superimposed on chronic kidney disease Assessment & Plan: I do not have a record of his baseline renal function. As above, his renal function appears to be worsening with diuretic which I have stopped. CARLENE BYRNE DO Jul 06, 2021 05:27
[2021-07-06 05:57] LABS: BASOPHILS # (AUTO) 0.1 10^3/uL (0.0-0.1); BASOPHILS % (AUTO) 1 % (0-10); EOSINOPHILS # (AUTO) 0.2 10^3/uL (0.0-0.3); EOSINOPHILS % (AUTO) 5 % (0-10); HEMATOCRIT 29 % (40-54); LYMPHOCYTES # (AUTO) 1.4 10^3/uL (1.0-4.0); LYMPHOCYTES % (AUTO) 32 % (12-44); MEAN CORPUSCULAR HEMOGLOBIN 30 pg (25-34); MEAN CORPUSCULAR HGB CONC 31 g/dL (32-36); MEAN CORPUSCULAR VOLUME 95 fL (80-99); MEAN PLATELET VOLUME 9.6 fL (9.0-12.2); MONOCYTES # (AUTO) 0.4 10^3/uL (0.0-1.0); MONOCYTES % (AUTO) 10 % (0-12); NEUTROPHILS # (AUTO) 2.3 10^3/uL (1.8-7.8); NEUTROPHILS % (AUTO) 52 % (42-75); PLATELET COUNT 154 10^3/uL (130-400); WHITE BLOOD COUNT 4.5 10^3/uL (4.3-11.0)
[2021-07-06 06:14] LABS: ALBUMIN 3.4 GM/DL (3.2-4.5); POTASSIUM 3.9 MMOL/L (3.6-5.0)
[2021-07-06 06:15] LABS: CALCIUM 8.9 MG/DL (8.5-10.1)
[2021-07-06 06:16] LABS: TOTAL PROTEIN 6.3 GM/DL (6.4-8.2)
[2021-07-06 06:18] LABS: BILIRUBIN,TOTAL 0.6 MG/DL (0.1-1.0)
[2021-07-06 06:20] LABS: CREATININE SERUM 2.32 MG/DL (0.60-1.30)
[2021-07-06] MEDS: inSUlin ASPART (NovoLOG) 1 UNIT/0.01 ML (CHARGE PER UNIT) SC SCH ×4 (06:21→21:11)
[2021-07-06 08:32] VITALS: BP 127/65
[2021-07-06] MEDS: DOCUSATE SODIUM 100 MG (COLACE) CAP PO SCH ×2 (08:34→21:00)
[2021-07-06] MEDS: PANTOPRAZOLE 40 MG (PROTONIX) TAB PO SCH (08:34)
[2021-07-06] MEDS: AMIODARONE 200 MG (CORDARONE) TAB PO SCH (08:35)
[2021-07-06] MEDS: CLOPIDOGREL 75 MG (PLAVIX) TABLET PO SCH (08:35)
[2021-07-06] MEDS: APIXABAN 2.5 MG (ELIQUIS) TABLET PO SCH ×2 (08:35→21:00)
[2021-07-06] MEDS: polyethylene glycoL POWDER 17 GM (MIRALAX) PACK PO SCH ×2 (08:36→21:11)
[2021-07-06] MEDS: SENNA W/DOCUSATE (SENOKOT S) TABLET PO SCH ×2 (08:36→21:11)
--- NOTE | 2021-07-06 10:30 | Occupational Ther Daily Note ---
OT Current Status-Daily Note Subjective Pt alert, sitting in recliner. Pt agrees to therapy. No c/o pain. Mental Status/Objective Patient Orientation: Person, Place, Time, Situation ADL-Treatment Pt agrees to therapy. Pt independent with eating. Pt demonstrates ability to gather clothing from closet and transport for dressing. Pt able to complete toileting independently, has toilet tongs for hygiene after BM. Using shower seat, grabbars, LH sponge, toilet tongs and hand held shower pt is able to complete shower by self. Pt is able to complete upper/lower body dressing by self. Pt able to don/doff sock using weave room supervisor and sock aide. Pt unable to fit shoes on at this time due to increased swelling in feet. Sitting at sink, pt able to complete oral care independently. Therapy Code Descriptions/Definitions Functional [place] Measure: 0=Not Assessed/NA 4=Minimal Assistance 1=Total Assistance 5=Supervision or Setup 2=Maximal Assistance 6=Modified [place] 3=Moderate Assistance 7=Complete IndependenceSCALE: Activities may be completed with or without assistive devices. 8-Kqodbtaqgr-aixrsia completes the activity by him/herself with no assistance from a helper. 5-Set-up or Clean-up Assistance-helper sets up or cleans up; patient completes activity. [place] assists only prior to or following the activity. 4-Supervision or Touching Assistance-helper provides verbal cues and/or touching/steadying and/or contact guard assistance as patient completes activity. Assistance may be provided throughout the activity or intermittently. 3-Partial/Moderate Assistance-helper does LESS THAN HALF the effort. [place] lifts, holds or supports trunk or limbs, but provides less than half the effort. 2-Substantial/Maximal Assistance-helper does MORE THAN HALF the effort. [place] lifts or holds trunk or limbs and provides more than half the effort. 0-Duexknccv-ttmimk does ALL the effort. Patient does none of the effort to complete the activity. Or, the assistance of 2 or more helpers is required for the patient to complete the activity. If activity was not attempted, code reason: 7-Patient Refused. 9-Not Applicable-not attempted and the patient did not perform the activity before the current illness, exacerbation or injury. 10-Not Attempted due to Environmental Limitations-(lack of equipment, weather restraints, etc.). 88-Not Attempted due to Medical Conditions or Safety Concerns. Eating (QC): 6 Oral Hygiene (QC): 6 Shower/Bathe Self (QC): 6 Upper Body Dressing (QC): 6 Lower Body Dressing (QC): 6 On/Off Footwear: 6 Toileting Hygiene (QC): 6 Toilet Transfer (QC): 6 Other Treatment Pt demonstrated ability to use counter to stabilize self while in [employer] kitchen area working on reaching/opening cabinets and drawers. Pt then completed 7 B UE theraband exercises with skilled instruction for correct technique, 1 set 12-20 reps. After therapy, pt sitting in recliner with call light/phone in reach. All needs met in room. OT Short Term Goals Short Term Goals Time Frame: Jul 10, 2021 Toileting hygiene: 3 Shower/bathe self: 4 Lower body dressin Putting on/taking off footwear: 3 OT Jail Goals Jail Goals Time Frame: Jul 24, 2021 Eating (QC): 6 (met) Oral Hygiene (QC): 6 (met) Toileting Hygiene (QC): 6 (met) Shower/Bathe Self (QC): 6 (met) Upper Body Dressing (QC): 6 (met) Lower Body Dressing (QC): 6 (met) On/Off Footwear (QC): 6 (met) Additional Goals: 1-Demonstrate ADL Tasks, 2-Verbalize Understanding, 3-ImproveStrength/[place] 1=Demonstrate adherence to instructed precautions during ADL tasks. 2=Patient will verbalize/demonstrate understanding of assistive devices/modifications for ADL. 3=Patient will improve strength/tolerance for activity to enable patient to perf orm ADL's. OT Education/Plan Problem List/Assessment Assessment: Decreased Activ Tolerance, Decreased UE Strength, Impaired Funct Balance, Impaired Self-Care Skills Discharge Recommendations Plan/Recommendations: Continue POC Treatment Plan/Plan of Care Patient would benefit from OT for education, treatment and training to promote independence in ADL's, mobility, safety and/or upper extremity function for A DL's. Plan of Care: ADL Retraining, Functional Mobility, Group Exercise/Act as Ind, UE Funct Exercise/Act Treatment Duration: Jul 24, 2021 Frequency: At least 5 of 7 days/Wk (IRF) Estimated Hrs Per Day: 1.5 hours per day Agreement: Yes Rehab Potential: Good Time/GCodes Start Time: 08:45 Stop Time: 10:15 Total Time Billed (hr/min): 90 Billed Treatment Time 1 visit-ADL 3 (45 min) FA 2 (30 min) EX 1 (15 min) ROSA M NOVA Jul 06, 2021 10:30
--- NOTE | 2021-07-06 11:54 | Cardiology Progress Note ---
Subjective Date Seen by Provider: Jul 06, 2021 Time Seen by Provider: 11:50 Subjective/Events-last exam Patient is sitting comfortably, seen during physical therapy session. Patient was concerned about the worsening pedal edema and inquiring about restarting Lasix, understand that he has underlying renal insufficiency. Denied any chest pain. No palpitation Review of Systems General: No Chills, No Night Sweats; Fatigue, Malaise; No Appetite, No Other HEENT: No Head Aches, No Visual Changes, No Eye Pain, No Ear Pain, No Dysphasia, No Sinus Congestion, No Post Nasal Drip, No Sore Throat, No Other Pulmonary: Dyspnea; No Cough, No Pleuritic Chest Pain, No Other Cardiovascular: Edema; No: Chest Pain, Palpitations, Orthopnea, Paroxysmal Noc. Dyspnea, Lt Headedness, Other Objective-Cardiology Exam Last Set of Vital Signs Vital Signs 07/06/21 07/06/21 08:32 09:27 Temp 36.0 Pulse 90 Resp 18 B/P (MAP) 127/65 (85) Pulse Ox 95 O2 Delivery Nasal Cannula O2 Flow Rate 3.00 General: Alert, Oriented X3, Cooperative HEENT: Atraumatic, PERRLA Neck: Supple, No JVD, No Thyromegaly Lungs: Clear to Auscultation, Normal Air Movement Heart: Normal S1, Normal S2, No Murmurs, Other (a fib) Abdomen: Normal Bowel Sounds, Soft, No Tenderness, No Hepatosplenomegaly, No Masses Extremities: No Clubbing, No Cyanosis, No Edema, Normal Pulses, No Tenderness/Swelling Skin: No Rashes, No Breakdown, No Significant Lesion Neuro: Normal Gait, Normal Speech, Strength at 5/5 X4 Ext, Normal Tone, Sensation Intact Psych/Mental Status: Mental Status NL, Mood NL Results Lab Laboratory Tests 07/06/21 05:38 A/P-Cardiology Admission Diagnosis Congestive heart failure Persistent atrial fibrillation Hypertension Coronary artery disease Assessment/Plan Congestive heart failure, history of chronic compensated left ventricular diastolic dysfunction, questionable history of systolic dysfunction. He was on diuretics which was held due to the renal failure. Using compression socks. Still having worsening edema. I will restart Bumex and evaluate tolerance and response Persistent atrial fibrillation, patient reported that he had a cardioversion at [facility]. Currently is in atrial fibrillation, heart rate is controlled on amiodarone and carvedilol. Continue on Eliquis. Coronary artery disease, history of CABG, history of 2 stents in the past. Following with Dr. Garcia as an outpatient. Hypertension, continue to monitor blood pressure Hyperlipidemia, continue on Lipitor Acute on chronic renal insufficiency. Continue to monitor renal function. Generalized fatigue and loss of energy. Receiving physical therapy SONIA ROSE MD Jul 06, 2021 11:54
--- NOTE | 2021-07-06 12:06 | Physical Therapy Daily Note ---
PT Daily Note-Current Subjective Pt. feels he is stronger, looking forward to going home. "Its been 52 days" Pt. concerned about his cardiac situation. Dr Del Valle visits during Rx, interviews pt. and states he wants EKG as he suspects AFIB. Pt. requests rest breaks throughout Rx secondary to fatigue and SOB Pain Location: No Pain Reported Mental Status Patient Orientation: Normal For Age Attachments: Oxygen (3L) Transfers SCALE: Activities may be completed with or without assistive devices. 1-Agvepilyav-rpclsax completes the activity by him/herself with no assistance from a helper. 5-Set-up or Clean-up Assistance-helper sets up or cleans up; patient completes activity. [place] assists only prior to or following the activity. 4-Supervision or Touching Assistance-helper provides verbal cues and/or touching/steadying and/or contact guard assistance as patient completes activity. Assistance may be provided throughout the activity or intermittently. 3-Partial/Moderate Assistance-helper does LESS THAN HALF the effort. [place] lifts, holds or supports trunk or limbs, but provides less than half the effort. 2-Substantial/Maximal Assistance-helper does MORE THAN HALF the effort. [place] lifts or holds trunk or limbs and provides more than half the effort. 9-Odblmwdxg-ignobx does ALL the effort. Patient does none of the effort to complete the activity. Or, the assistance of 2 or more helpers is required for the patient to complete the activity. If activity was not attempted, code reason: 7-Patient Refused. 9-Not Applicable-not attempted and the patient did not perform the activity before the current illness, exacerbation or injury. 10-Not Attempted due to Environmental Limitations-(lack of equipment, weather restraints, etc.). 88-Not Attempted due to Medical Conditions or Safety Concerns. Roll Left & Right (QC): 6 Sit to Lying (QC): 6 Lying to Sitting/Side of Bed(Q: 6 Sit to Stand (QC): 6 Chair/Ppq-ht-Bttht Xfer(QC): 6 Toilet Transfer (QC): 6 Car Transfer (QC): 6 Gait Training Does the Patient Walk?: Yes Walk 10 feet (QC): 4 Walk 50 ft with 2 Turns(QC): 4 Walk 150 ft (QC): 4 Walking 10ft/uneven surface-QC: 4 Gait Persons Needed: 1 Gait Assistive Device: FWW no LOB, pt. does need occas reminder to turn toward O2 tubing when turning to avoid wrapping up in it. Pt. taking rest breaks between each gait bout Stair Training Stair Training: Handrails/: 2 handrails #of Steps: 4 1 Step (curb) (QC): 4 4 Steps (QC): 4 12 Steps (QC): 7 Stairs: Pattern: Step to pt. declines 12 steps as he is SOA and needs to rest. "I dont ever do 12 steps, that would get me really short of air" Balance Picking up an Object (QC): 6 Exercises Seated Therapy Exercises: Ankle pumps, Sit to stand, Long arc quads, Hip flexion Seated Reps: 15 NuStep Minutes: 11 NuStep Workload: 2 Assessment Current Status: Good Progress PT Short Term Goals Short Term Goals Time Frame: Jul 03, 2021 Roll Left & Right: 6 Sit to lyin Lying to sitting on side of be: 6 Sit to stand: 4 (CGA) Chair/ued-pb-pfula transfer: 4 (SBA) Walk 10 feet: 4 (SBA) Walk 50 feet with two turns: 4 (SBA) PT Waste Disposal Leakage Tester Goals Waste Disposal Leakage Tester Goals PT Waste Disposal Leakage Tester Goals Time Frame: Jul 17, 2021 Roll Left & Right (QC): 6 Sit to Lying (QC): 6 Lying-Sitting on Side/Bed(QC): 6 Sit to Stand (QC): 4 (CGA) Chair/Kxr-qs-Slwuf Xfer(QC): 6 Toilet Transfer (QC): 6 Car Transfer (QC): 4 (CGA) Does the Patient Walk: Yes Walk 10 feet (QC): 6 Walk 50ft with 2 Turns (QC): 6 Walk 150 ft (QC): 6 Walking 10ft on Uneven Surface: 6 1 Step (curb) (QC): 4 (CGA) 4 Steps (QC): 4 (CGA) 12 Steps (QC): 88 Picking up an Object (QC): 6 Wheel 50 feet with 2 turns (QC: 9 Wheel 150 feet: 9 PT Plan Treatment/Plan Treatment Plan: Continue Plan of Care Treatment Plan: Bed Mobility, Education, Functional Activity Queenie, Functional Strength, Group Therapy, Gait, Safety, Therapeutic Exercise, Transfers Treatment Duration: Jul 17, 2021 Frequency: At least 5 of 7 days/Wk (IRF) Estimated Hrs Per Day: 1.5 hours per day Patient and/or Family Agrees t: Yes Safety Risks/Education Patient Education: Gait Training, Transfer Techniques, Steps, Correct Positioning, Disease Process, Safety Issues Teaching Recipient: Patient Teaching Methods: Demonstration, Discussion Response to Teaching: Verbalize Understanding, Return Demonstration, Reinforcement Needed Time/GCodes Time In: 1100 Time Out: 1200 Total Billed Treatment Time: 60 Total Billed Treatment 1,FA25m,GT15m,EX20m ROMEO LOVE INSTALLER INSPECTOR FINAL Jul 06, 2021 12:06
[2021-07-06] MEDS: BUMETANIDE 1 MG (BUMEX) TAB PO SCH (12:43)
--- NOTE | 2021-07-06 13:55 | Physical Therapy Daily Note ---
PT Daily Note-Current Subjective Pt. states he just ate and his belly is full " it was so good". Pt. preferes to sit at edge of bed after therex in supine, but layed back down after Pain Location: No Pain Reported Mental Status Patient Orientation: Normal For Age Attachments: Oxygen Transfers SCALE: Activities may be completed with or without assistive devices. 6-Sktonhfawl-fgaclou completes the activity by him/herself with no assistance from a helper. 5-Set-up or Clean-up Assistance-helper sets up or cleans up; patient completes activity. [place] assists only prior to or following the activity. 4-Supervision or Touching Assistance-helper provides verbal cues and/or touching/steadying and/or contact guard assistance as patient completes activity. Assistance may be provided throughout the activity or intermittently. 3-Partial/Moderate Assistance-helper does LESS THAN HALF the effort. [place] lifts, holds or supports trunk or limbs, but provides less than half the effort. 2-Substantial/Maximal Assistance-helper does MORE THAN HALF the effort. [place] lifts or holds trunk or limbs and provides more than half the effort. 7-Qhhvoakmq-llrwet does ALL the effort. Patient does none of the effort to complete the activity. Or, the assistance of 2 or more helpers is required for the patient to complete the activity. If activity was not attempted, code reason: 7-Patient Refused. 9-Not Applicable-not attempted and the patient did not perform the activity before the current illness, exacerbation or injury. 10-Not Attempted due to Environmental Limitations-(lack of equipment, weather restraints, etc.). 88-Not Attempted due to Medical Conditions or Safety Concerns. sup to sit and sit to sup mod I, scoots up in bed indep Gait Training Does the Patient Walk?: Yes Exercises Supine Ex: Bridging, Ankle pumps, Quad Set, Rolling, Glut sets, Heel Slides, Short Arc Quads, Scooting, Straight leg raise, Hip abd/add Supine Reps: 20 pt. required rest breaks between exercises but completed all ex well Treatments sup to sit to sup , sup LE therex, in bed afer rx , call lazaro at hand Assessment Current Status: Good Progress PT Short Term Goals Short Term Goals Time Frame: Jul 03, 2021 Roll Left & Right: 6 Sit to lyin Lying to sitting on side of be: 6 Sit to stand: 4 (CGA) Chair/wki-hv-jmtqo transfer: 4 (SBA) Walk 10 feet: 4 (SBA) Walk 50 feet with two turns: 4 (SBA) PT Prizer Hand Goals Prizer Hand Goals PT Assisted Goals Time Frame: Jul 17, 2021 Roll Left & Right (QC): 6 Sit to Lying (QC): 6 Lying-Sitting on Side/Bed(QC): 6 Sit to Stand (QC): 4 (CGA) Chair/Wcu-of-Abwjv Xfer(QC): 6 Toilet Transfer (QC): 6 Car Transfer (QC): 4 (CGA) Does the Patient Walk: Yes Walk 10 feet (QC): 6 Walk 50ft with 2 Turns (QC): 6 Walk 150 ft (QC): 6 Walking 10ft on Uneven Surface: 6 1 Step (curb) (QC): 4 (CGA) 4 Steps (QC): 4 (CGA) 12 Steps (QC): 88 Picking up an Object (QC): 6 Wheel 50 feet with 2 turns (QC: 9 Wheel 150 feet: 9 PT Plan Treatment/Plan Treatment Plan: Continue Plan of Care Treatment Plan: Bed Mobility, Education, Functional Activity Queenie, Functional Strength, Group Therapy, Gait, Safety, Therapeutic Exercise, Transfers Treatment Duration: Jul 17, 2021 Frequency: At least 5 of 7 days/Wk (IRF) Estimated Hrs Per Day: 1.5 hours per day Patient and/or Family Agrees t: Yes Safety Risks/Education Patient Education: Transfer Techniques, Correct Positioning Time/GCodes Time In: 1330 Time Out: 1400 Total Billed Treatment Time: 30 Total Billed Treatment 1,EX30m ROMEO LOVE ASSISTANT HEAD CASHIER Jul 06, 2021 13:55
--- NOTE | 2021-07-06 17:58 | Podiatry Progress Note ---
Standard Progress Note Progress Notes/Assess & Plan Date Seen by a Provider: Jul 06, 2021 Time Seen by a Provider: 17:57 Progress/Assessment & Plan Consultation dictated, foot care given. Final Diagnosis Edema, Neuropathy, Onychomycosis, Onychocryptosis CHRISTELLE KLINE DPM Jul 06, 2021 17:58
[2021-07-06 20:29] VITALS: BP 120/60
--- NOTE | 2021-07-06 20:39 | CONSULTATION REPORT ---
DATE OF SERVICE: 07/06/2021 REASON FOR CONSULTATION: Foot care. HISTORY OF PRESENT ILLNESS: This is a 70-year-old male was admitted secondary to respiratory issues. He was subsequently treated for pneumonia. Once the treatment began at [facility], he suffered an acute kidney injury due to acute tubular necrosis with his baseline creatinine of 1.3 that peaked at 6.7. Hemodialysis was performed. The patient is currently at [facility] for rehabilitation. He has difficulty reaching for and caring for his feet and he is currently complaining about foot care, particular his long toenails. PAST MEDICAL HISTORY: Includes CABG, cholecystectomy. REVIEW OF SYSTEMS: RESPIRATORY: History includes pneumonia, sleep apnea. CARDIAC: Includes AFib, chronic edema, swelling, high cholesterolemia, hypertension. GENITOURINARY: Renal failure. MUSCULOSKELETAL: Chronic back pain. ALLERGIES: HE HAS AN ALLERGY TO TEMAZEPAM. CURRENT MEDICATIONS: Listed on the patient's chart. PHYSICAL EXAMINATION: EXTREMITIES: On lower extremity examination, the patient has 0/4 dorsalis pedis pulse, 0/4 posterior tibial pulse bilaterally. Cap refill time is less than 3 seconds to the hallux. There is 3+ pitting edema bilateral lower leg, ankle and foot. NEUROLOGIC: The patient has diminished deep tendon reflexes to the Achilles tendon. There is intact protective sensation with 10 g monofilament wire examination. There is also diminished vibratory sensation to the forefoot bilaterally. INTEGUMENTARY: The patient has thick yellow dystrophic toenails with subungual debris, R1, 2, 3, 4 and 5 and L1, 2, 4, 5 digits. There are incurvated borders, especially medial aspect of the left hallux toenail with no erythema, edema or gross signs of bacterial infection at this time. MUSCULOSKELETAL FINDINGS: He has 4/5 muscle strength to the four major quadrants of the foot. ASSESSMENT: 1. Idiopathic neuropathy. 2. Edema. 3. Onychocryptosis and onychomycosis. PLAN: Various treatment options were discussed with the patient today. I discussed conservative and surgical options for an ingrown toenail. Upon discharge, he can follow up in my office for a potential matrixectomy for a long-term solution. For now, the offending medial distal nail fold was reduced without the aid of anesthesia. The patient tolerated this well. Betadine was applied. The rest of his toenails were debrided today R1, 2, 3, 4 and 5 and L1, 2, 4, 5 digits. Some hyperkeratotic lesions in the medial aspect of the first metatarsal head were debrided bilaterally as well. Recommend the patient utilize appropriate compression hose on a regular basis. We will see him in the office upon discharge at his convenience. Job ID: [id number] DocumentID: [id number] Dictated Date: 07/06/2021 17:57:47 Principal Associate Date: 07/06/2021 20:37:51 Dictated By: MIRLANDE WHITLEY
[2021-07-06] MEDS: traZODone 50 MG (DESYREL) TAB PO SCH (21:00)
[2021-07-06] MEDS: [UNRECOGNIZED DRUG - REMARK] TOP SCH (21:01)
[2021-07-07] MEDS: oxyCODONE/APAP 5/325MG (PERCOCET 5) TABLET PO PRN ×4 (05:11→21:57)
--- NOTE | 2021-07-07 05:52 | PM&R Progress Note ---
Subjective HPI/CC On Admission Date Seen by Provider: Jul 07, 2021 Time Seen by Provider: 08:30 Subjective/Events-last exam 07/07/2021: Pt is doing a lot better Bumex restarted Bowels moved today Checked meds and labs Will go home tomorrow with his 07/06/21: Pt is doing good Dr. Horn will see him for toenail care Bowels moved yesterday No major issues Creatinine is 2.[address] Del Valle will evaluate diuretics 07/05/2021: Patient doing well No significant concerns Edema issues were discussed Delicate balance with elevated creatinine and edema 07/04/2021: Supportive care will continue Patient denies any new issues Breathing better Walking better No new pain 07/03/2021: Pt is doing well No major issues Moving to a new place upon discharge Discharge is planned for Tuesday07/02/2021: Pt is doing really well Sugar is okay No pain right now Hasn't had a pain pill today Checked meds and labs 07/01/2021: Pt is doing okay Checked meds and labs Sugars are good Leg edema is improved Takes 1-2 Percocet a day Heart rate of afib at 100 this morning Discharge planned for 07/08/21 06/30/2021: Pt is voiding well status post catheter removal We will cancel Dr. Roy consultation Checked meds and labs Doing very well 06/29/2021: Pt is doing really well Discontinued the cath today and he is able to void a little bit Urology will be consulted just in case he has retention Checked meds and labs Overall very stable 06/28/2021: Patient doing well Walking around with assistance We will discontinue Najera catheter tomorrow Check meds labs Blood sugars good 06/27/2021: Patient doing very well Settling in well Bowels moved today Slept really well last night for the first time in weeks EKG obtained showing atrial fibrillation Dr. Sumner will consult Kidney function stable Review of Systems General: Fatigue, Malaise Objective Exam Vital Signs Vital Signs Date Time Temp Pulse Resp B/P (MAP) Pulse Ox O2 Delivery O2 Flow Rate FiO2 07/07/21 21:45 97 Nasal Cannula 3.00 07/07/21 20:00 36.2 72 20 136/62 (86) Capillary Refill : General Appearance: No Apparent Distress, WD/WN, Chronically ill, Obese HEENT: PERRL/EOMI, Normal ENT Inspection, Pharynx Normal Neck: Full Range of Motion, Normal Inspection, Non Tender, Supple, Carotid Bruit Respiratory: Chest Non Tender, Lungs Clear, Normal Breath Sounds, No Accessory Muscle Use, No Respiratory Distress Cardiovascular: Regular Rate, Rhythm, No Edema, No Gallop, No JVD, No Murmur, Normal Peripheral Pulses Gastrointestinal: Normal Bowel Sounds, No Organomegaly, No Pulsatile Mass, Non Tender, Soft Back: Normal Inspection, No CVA Tenderness, No Vertebral Tenderness Extremity: Normal Capillary Refill, Normal Inspection, Normal Range of Motion, Non Tender, No Calf Tenderness, No Pedal Edema Neurologic/Psychiatric: Alert, Oriented x3, No Motor/Sensory Deficits, Normal Mood/Affect, Abnormal Gait, Motor Weakness Skin: Normal Color, Warm/Dry Lymphatic: No Adenopathy Results/Procedures Lab Patient resulted labs reviewed. FIM Transfers Therapy Code Descriptions/Definitions Functional Worth Measure: 0=Not Assessed/NA 4=Minimal Assistance 1=Total Assistance 5=Supervision or Setup 2=Maximal Assistance 6=Modified Worth 3=Moderate Assistance 7=Complete IndependenceSCALE: Activities may be completed with or without assistive devices. 5-Urfevkpuvf-ukwvyyr completes the activity by him/herself with no assistance from a helper. 5-Set-up or Clean-up Assistance-helper sets up or cleans up; patient completes activity. [place] assists only prior to or following the activity. 4-Supervision or Touching Assistance-helper provides verbal cues and/or touching/steadying and/or contact guard assistance as patient completes activity. Assistance may be provided throughout the activity or intermittently. 3-Partial/Moderate Assistance-helper does LESS THAN HALF the effort. [place] lifts, holds or supports trunk or limbs, but provides less than half the effort. 2-Substantial/Maximal Assistance-helper does MORE THAN HALF the effort. [place] lifts or holds trunk or limbs and provides more than half the effort. 1-Dncjnoywc-zjemjh does ALL the effort. Patient does none of the effort to complete the activity. Or, the assistance of 2 or more helpers is required for the patient to complete the activity. If activity was not attempted, code reason: 7-Patient Refused. 9-Not Applicable-not attempted and the patient did not perform the activity before the current illness, exacerbation or injury. 10-Not Attempted due to Environmental Limitations-(lack of equipment, weather restraints, etc.). 88-Not Attempted due to Medical Conditions or Safety Concerns. Roll Left to Right (QC): 6 Sit to Lying (QC): 6 Sit to Stand (QC): 6 Chair/Znx-aa-Iircd Xfer(QC): 6 Car Transfer (QC): 6 Gait Training Does the Patient Walk?: Yes Distance: 150x2 Walk 10 feet (QC): 4 Walk 50 ft with 2 Turns(QC): 4 Walk 150 ft (QC): 4 Walking 10ft/uneven surface-QC: 4 Gait Persons Needed: 1 Gait Assistive Device: FWW Wheelchair Training Does the Pt Use a Wheelchair?: No Wheel 50 ft with 2 turns (QC): 9 Wheel 150 ft (QC): 9 Stair Training Stair Training: Handrails/: 2 handrails #of Steps: 4 1 Step (curb) (QC): 4 4 Steps (QC): 4 12 Steps (QC): 7 Stairs: Pattern: Step to Balance Picking up an Object (QC): 6 ADL-Treatment Eating (QC): 6 Oral Hygiene (QC): 6 Shower/Bathe Self (QC): 6 Upper Body Dressing (QC): 6 Lower Body Dressing (QC): 6 On/Off Footwear (QC): 6 Toileting Hygiene (QC): 6 Toilet Transfer (QC): 6 Assessment/Plan Assessment and Plan Assess & Plan/Chief Complaint Assessment: Critical illness myopathy Recent new onset atrial fibrillation with RVR now normal sinus rhythm on amiodarone and Coreg Diabetes Hypertension Hyperlipidemia COPD CHF Chronic kidney disease stage III CAD previous bypass GERD HERMINIO Najera catheter in place now discontinued and voiding well Edema Plan: Rehab protocol Restarted all meds from [facility] Supportive care 06/27/2021: Supportive care DC Najera catheter Tuesday in case urinary retention occurs and urology will be available 06/28/2021: Supportive care DC catheter tomorrow 06/29/2021: DC catheter Urology consultation 06/30/2021: Voiding well so we will discontinue urology consultation Continue aggressive therapy 07/01/2021: Supportive care Improved status 07/02/2021: Supportive care 07/03/2021: Discharge plan for Tuesday Supportive care 07/04/2021: Discharge on Tuesday07/05/2021: Diuretic to discuss with cardiology Check meds and labs 07/06/2021: Appreciate cardiology Diuretics 07/07/2021: Supportive care Discharge home tomorrow (1) Chronic heart failure with preserved ejection fraction (HFpEF) Assessment & Plan: He reports a history of heart failure and was never told he had a low ejection fraction. I did review the records from the outside hospital a second time and could not find any echocardiogram report. He takes furosemide at home but presumably due to the acute kidney injury, this was stopped at the outside facility. His peripheral edema persists. I stopped his oral bumetanide due to a rise in his creatinine level. (2) Persistent atrial fibrillation Assessment & Plan: From his description, he underwent a cardioversion at the outside hospital but has been in atrial fibrillation in our hospital. His heart rate is controlled with amiodarone and carvedilol. I did adjust his Eliquis because he was not on the appropriate dose at the outside hospital. I do not see any urgent need for cardioversion. This will need to be followed closely by his outside edge kitter following discharge. (3) Coronary artery disease involving [place] coronary artery with angina pectoris Assessment & Plan: He is not having any typical angina during his physical therapy. He is not taking aspirin because he is on apixaban due to the atrial fibrillation. For unclear reasons, he is also on clopidogrel. This may need to be addressed by his regular outside edge kitter following discharge. Dual pathway inhibition, particularly with clopidogrel, is not necessarily indicated unless the patient had a recent coronary stent or acute coronary syndrome. I recommend he continue on carvedilol and statin medication. (4) Primary hypertension Assessment & Plan: His blood pressures have improved since increasing his dose of carvedilol on 07/01. If any develops recurrent elevated blood pressures, I would maximize the dose of carvedilol. I would not prescribe amlodipine or his peripheral edema will likely become much worse. (5) Mixed hyperlipidemia Assessment & Plan: Continue atorvastatin. (6) Acute kidney injury superimposed on chronic kidney disease Assessment & Plan: I do not have a record of his baseline renal function. As above, his renal function appears to be worsening with diuretic which I have stopped. CARLENE BYRNE DO Jul 07, 2021 05:52
[2021-07-07] MEDS: inSUlin ASPART (NovoLOG) 1 UNIT/0.01 ML (CHARGE PER UNIT) SC SCH ×4 (05:53→21:59)
--- NOTE | 2021-07-07 08:01 | Cardiology Progress Note ---
Subjective Date Seen by Provider: Jul 07, 2021 Time Seen by Provider: 08:00 Subjective/Events-last exam Patient is asleep in bed, NAD. Review of Systems General: No Chills, No Night Sweats, No Fatigue, No Malaise, No Appetite, No Other HEENT: No Head Aches, No Visual Changes, No Eye Pain, No Ear Pain, No Dysphasia, No Sinus Congestion, No Post Nasal Drip, No Sore Throat, No Other Pulmonary: No Dyspnea, No Cough, No Pleuritic Chest Pain, No Other Objective-Cardiology Exam Last Set of Vital Signs Vital Signs 07/06/21 07/07/21 20:29 09:11 Temp 36.2 Pulse 76 Resp 18 B/P (MAP) 122/73 (89) Pulse Ox 98 O2 Delivery Nasal Cannula O2 Flow Rate 3.00 General: Alert, Oriented X3, Cooperative HEENT: Atraumatic, PERRLA Neck: Supple, No JVD, No Thyromegaly Lungs: Clear to Auscultation, Normal Air Movement Heart: Normal S1, Normal S2, No Murmurs, Other (a fib) Abdomen: Normal Bowel Sounds, Soft, No Tenderness, No Hepatosplenomegaly, No Masses Extremities: No Clubbing, No Cyanosis, No Edema, Normal Pulses, No Tenderness/Swelling Skin: No Rashes, No Breakdown, No Significant Lesion Neuro: Normal Gait, Normal Speech, Strength at 5/5 X4 Ext, Normal Tone, Sensation Intact Psych/Mental Status: Mental Status NL, Mood NL A/P-Cardiology Admission Diagnosis Congestive heart failure Persistent atrial fibrillation Hypertension Coronary artery disease Assessment/Plan Congestive heart failure, history of chronic compensated left ventricular diastolic dysfunction, questionable history of systolic dysfunction. He was on diuretics which was held due to the renal failure. Using compression socks. Still having worsening edema. Bumex restarted at 1mg daily. Persistent atrial fibrillation, patient reported that he had a cardioversion at [facility]. Currently is in atrial fibrillation, heart rate is controlled on amiodarone and carvedilol. Continue on Eliquis. Coronary artery disease, history of CABG, history of 2 stents in the past. Following with Dr. Garcia as an outpatient. Hypertension, continue to monitor blood pressure Hyperlipidemia, continue on Lipitor Acute on chronic renal insufficiency. Continue to monitor renal function. Generalized fatigue and loss of energy. Receiving physical therapy Supervisory-Addendum Brief Supervisory Addendum Participated in pt care: history, MDM, physical Personally performed: exam, history, MDM Care discussed with: MAILE Results interpretation: Verified all documentation Notes: Patient was seen and evaluated with Georgie, examination performed, management plan was discussed, agree with the current scribed note, I made few changes to the note using Italic font Patient was laying down in bed, feeling better Reporting response to diuretics and I instructed him to take 1 Bumex a day instead of twice a day Discussed with Dr. Lopez the management plan Okay for discharge He will follow-up with Dr. Garcia as an outpatient GEORGIE BAIRD Jul 07, 2021 08:01 SONIA ROSE MD Jul 07, 2021 12:30
[2021-07-07 09:11] VITALS: BP 122/73
[2021-07-07] MEDS: BUMETANIDE 1 MG (BUMEX) TAB PO SCH (09:12)
[2021-07-07] MEDS: CLOPIDOGREL 75 MG (PLAVIX) TABLET PO SCH (09:12)
[2021-07-07] MEDS: AMIODARONE 200 MG (CORDARONE) TAB PO SCH (09:12)
[2021-07-07] MEDS: APIXABAN 2.5 MG (ELIQUIS) TABLET PO SCH ×2 (09:12→21:56)
[2021-07-07] MEDS: PANTOPRAZOLE 40 MG (PROTONIX) TAB PO SCH (09:12)
--- NOTE | 2021-07-07 11:02 | Physical Therapy Daily Note ---
PT Daily Note-Current Subjective Pt sitting in Therapy Gym after just finishing w/OT upon arrival. Pt agrees to PT and reports excited about d/c tomorrow. Pt reports feeling stronger and feels as though Therapy has been a great benefit. Mental Status Patient Orientation: Person, Place, Time, Situation Attachments: Oxygen (3L) Transfers SCALE: Activities may be completed with or without assistive devices. 7-Snbypzgwvr-uqyytkb completes the activity by him/herself with no assistance from a helper. 5-Set-up or Clean-up Assistance-helper sets up or cleans up; patient completes activity. [place] assists only prior to or following the activity. 4-Supervision or Touching Assistance-helper provides verbal cues and/or touching/steadying and/or contact guard assistance as patient completes activity. Assistance may be provided throughout the activity or intermittently. 3-Partial/Moderate Assistance-helper does LESS THAN HALF the effort. [place] lifts, holds or supports trunk or limbs, but provides less than half the effort. 2-Substantial/Maximal Assistance-helper does MORE THAN HALF the effort. [place] lifts or holds trunk or limbs and provides more than half the effort. 9-Jmrrblbcl-exydum does ALL the effort. Patient does none of the effort to complete the activity. Or, the assistance of 2 or more helpers is required for the patient to complete the activity. If activity was not attempted, code reason: 7-Patient Refused. 9-Not Applicable-not attempted and the patient did not perform the activity before the current illness, exacerbation or injury. 10-Not Attempted due to Environmental Limitations-(lack of equipment, weather restraints, etc.). 88-Not Attempted due to Medical Conditions or Safety Concerns. Sit to Stand (QC): 6 Weight Bearing Full Weight Bearing Full Weight Bearing Gait Training Does the Patient Walk?: Yes Distance: 150' Walk 10 feet (QC): 6 Walk 50 ft with 2 Turns(QC): 6 Walk 150 ft (QC): 6 Gait Persons Needed: 0 Gait Assistive Device: FWW Exercises Supine Ex: Ankle pumps, Quad Set, Glut sets, Heel Slides, Short Arc Quads, Straight leg raise, Hip abd/add Supine Reps: 10 Seated Therapy Exercises: Ankle pumps, Long arc quads, Hip flexion, Hip abd/add, Glut set Seated Reps: 10 NuStep Minutes: 11 NuStep Workload: 3 Treatments [id number]: Pt uses NuStep for 11m at WL 3 followed by short RB. Pt amb. in hallway, taking RB as needed then returns to room. Pt resting in recliner then AIR CONDITIONING UNIT TESTER issues written HEP for Supine & Seated Ex. Pt has all needs met, call light in hand. [id number]: TF to standing from recliner and amb. in hallway. Pt completes written HEP again. Pt resting in recliner w/all needs met, call light in hand. Assessment Current Status: Good Progress Pt fatigues and needs rest breaks to recover. PT Short Term Goals Short Term Goals Time Frame: Jul 03, 2021 Roll Left & Right: 6 Sit to lyin Lying to sitting on side of be: 6 Sit to stand: 4 (CGA) Chair/oaq-rv-ehuwq transfer: 4 (SBA) Walk 10 feet: 4 (SBA) Walk 50 feet with two turns: 4 (SBA) PT Intermediate Goals Trim Stencil Maker Goals PT Intermediate Goals Time Frame: Jul 17, 2021 Roll Left & Right (QC): 6 Sit to Lying (QC): 6 Lying-Sitting on Side/Bed(QC): 6 Sit to Stand (QC): 4 (CGA) Chair/Kqr-mt-Efnlh Xfer(QC): 6 Toilet Transfer (QC): 6 Car Transfer (QC): 4 (CGA) Does the Patient Walk: Yes Walk 10 feet (QC): 6 Walk 50ft with 2 Turns (QC): 6 Walk 150 ft (QC): 6 Walking 10ft on Uneven Surface: 6 1 Step (curb) (QC): 4 (CGA) 4 Steps (QC): 4 (CGA) 12 Steps (QC): 88 Picking up an Object (QC): 6 Wheel 50 feet with 2 turns (QC: 9 Wheel 150 feet: 9 PT Plan Problem List Problem List: Activity Tolerance Treatment/Plan Treatment Plan: Continue Plan of Care Treatment Plan: Bed Mobility, Education, Functional Activity Queenie, Functional Strength, Group Therapy, Gait, Safety, Therapeutic Exercise, Transfers Treatment Duration: Jul 17, 2021 Frequency: At least 5 of 7 days/Wk (IRF) Estimated Hrs Per Day: 1.5 hours per day Patient and/or Family Agrees t: Yes Safety Risks/Education Patient Education: Correct Positioning Teaching Recipient: Patient Teaching Methods: Discussion Response to Teaching: Verbalize Understanding Time/GCodes Time In: 1000 Time Out: 1100 Total Billed Treatment Time: 60 Total Billed Treatment [id number]: 1, EX x2 (30m), GT (15m) & FA (15m) [id number]: 1, GT (15m) & EX (15m) PREETHI GRANT AIR CONDITIONING UNIT TESTER Jul 07, 2021 11:02
--- NOTE | 2021-07-07 11:30 | Occupational Ther Daily Note ---
OT Current Status-Daily Note Subjective Pt alert, sitting EOB. Pt agrees to therapy. C/o pain in B LE's 09/22, nrsg brought pain meds. Mental Status/Objective Patient Orientation: Person, Place, Time, Situation Attachments: Oxygen (3L) ADL-Treatment Pt declines shower and changing clothing today. Pt able to doff socks and on socks with AE by self. Therapy Code Descriptions/Definitions Functional [place] Measure: 0=Not Assessed/NA 4=Minimal Assistance 1=Total Assistance 5=Supervision or Setup 2=Maximal Assistance 6=Modified [place] 3=Moderate Assistance 7=Complete IndependenceSCALE: Activities may be completed with or without assistive devices. 7-Swuxaxsquo-fczgfge completes the activity by him/herself with no assistance from a helper. 5-Set-up or Clean-up Assistance-helper sets up or cleans up; patient completes activity. [place] assists only prior to or following the activity. 4-Supervision or Touching Assistance-helper provides verbal cues and/or touching/steadying and/or contact guard assistance as patient completes activity. Assistance may be provided throughout the activity or intermittently. 3-Partial/Moderate Assistance-helper does LESS THAN HALF the effort. [place] lifts, holds or supports trunk or limbs, but provides less than half the effort. 2-Substantial/Maximal Assistance-helper does MORE THAN HALF the effort. [place] lifts or holds trunk or limbs and provides more than half the effort. 9-Bgipstlqq-pewrhx does ALL the effort. Patient does none of the effort to complete the activity. Or, the assistance of 2 or more helpers is required for the patient to complete the activity. If activity was not attempted, code reason: 7-Patient Refused. 9-Not Applicable-not attempted and the patient did not perform the activity before the current illness, exacerbation or injury. 10-Not Attempted due to Environmental Limitations-(lack of equipment, weather restraints, etc.). 88-Not Attempted due to Medical Conditions or Safety Concerns. On/Off Footwear: 6 Other Treatment Pt ambulates to therapy gym using FWW. Pt then completed B UE exercises to increase over all UE strengthening and activity tolerance. Arm bike completed for 15 min at 20 hart resistance, no breaks. Medium resistance theraputty finding 15 small beads to work on strength and dexterity. Pt left in care of PT. All needs met. OT Short Term Goals Short Term Goals Time Frame: Jul 10, 2021 Toileting hygiene: 3 Shower/bathe self: 4 Lower body dressin Putting on/taking off footwear: 3 OT Morning News Producer Goals Morning News Producer Goals Time Frame: Jul 24, 2021 Eating (QC): 6 (met) Oral Hygiene (QC): 6 (met) Toileting Hygiene (QC): 6 (met) Shower/Bathe Self (QC): 6 (met) Upper Body Dressing (QC): 6 (met) Lower Body Dressing (QC): 6 (met) On/Off Footwear (QC): 6 (met) Additional Goals: 1-Demonstrate ADL Tasks, 2-Verbalize Understanding, 3- ImproveStrength/Queenie 1=Demonstrate adherence to instructed precautions during ADL tasks. 2=Patient will verbalize/demonstrate understanding of assistive devices/modifications for ADL. 3=Patient will improve strength/tolerance for activity to enable patient to perform ADL's. OT Education/Plan Problem List/Assessment Assessment: Decreased Activ Tolerance, Decreased UE Strength, Impaired Self- Care Skills Discharge Recommendations Plan/Recommendations: Continue POC Treatment Plan/Plan of Care Patient would benefit from OT for education, treatment and training to promote independence in ADL's, mobility, safety and/or upper extremity function for ADL's. Plan of Care: ADL Retraining, Functional Mobility, Group Exercise/Act as Ind, UE Funct Exercise/Act Treatment Duration: Jul 24, 2021 Frequency: At least 5 of 7 days/Wk (IRF) Estimated Hrs Per Day: 1.5 hours per day Agreement: Yes Rehab Potential: Good Time/GCodes Start Time: 09:00 Stop Time: 10:00 Total Time Billed (hr/min): 60 Billed Treatment Time 1 visit-ADL 2 (30 min) EX 2 (30 min) ROSA M NOVA Jul 07, 2021 11:30
[2021-07-07] MEDS: SENNA W/DOCUSATE (SENOKOT S) TABLET PO SCH ×2 (11:52→22:00)
[2021-07-07] MEDS: polyethylene glycoL POWDER 17 GM (MIRALAX) PACK PO SCH ×2 (11:52→22:00)
[2021-07-07] MEDS: DOCUSATE SODIUM 100 MG (COLACE) CAP PO SCH ×2 (11:56→21:56)
--- NOTE | 2021-07-07 13:45 | Occupational Ther Daily Note ---
OT Current Status-Daily Note Subjective Pt alert, sitting EOB. Pt agrees to therapy. No c/o pain. Mental Status/Objective Patient Orientation: Person, Place, Time, Situation Attachments: Oxygen (3L) ADL-Treatment Toileting independent. Oral care and grooming independent. Eating independent. Pt dons knee brace by self. Using FWW, pt able to ambulate and transfer by self. After session, pt sitting in recliner with call light/phone in reach. All needs met in room. Therapy Code Descriptions/Definitions Functional [place] Measure: 0=Not Assessed/NA 4=Minimal Assistance 1=Total Assistance 5=Supervision or Setup 2=Maximal Assistance 6=Modified [place] 3=Moderate Assistance 7=Complete IndependenceSCALE: Activities may be completed with or without assistive devices. 5-Ohgnfgozwh-oiklsyf completes the activity by him/herself with no assistance from a helper. 5-Set-up or Clean-up Assistance-helper sets up or cleans up; patient completes activity. [place] assists only prior to or following the activity. 4-Supervision or Touching Assistance-helper provides verbal cues and/or touching/steadying and/or contact guard assistance as patient completes activity. Assistance may be provided throughout the activity or intermittently. 3-Partial/Moderate Assistance-helper does LESS THAN HALF the effort. [place] lifts, holds or supports trunk or limbs, but provides less than half the effort. 2-Substantial/Maximal Assistance-helper does MORE THAN HALF the effort. [place] lifts or holds trunk or limbs and provides more than half the effort. 4-[place]-qlwuce does ALL the effort. Patient does none of the effort to complete the activity. Or, the assistance of 2 or more helpers is required for the patient to complete the activity. If activity was not attempted, code reason: 7-Patient Refused. 9-Not Applicable-not attempted and the patient did not perform the activity before the current illness, exacerbation or injury. 10-Not Attempted due to Environmental Limitations-(lack of equipment, weather restraints, etc.). 88-Not Attempted due to Medical Conditions or Safety Concerns. Eating (QC): 6 Oral Hygiene (QC): 6 Toileting Hygiene (QC): 6 Toilet Transfer (QC): 6 OT Short Term Goals Short Term Goals Time Frame: Jul 10, 2021 Toileting hygiene: 3 Shower/bathe self: 4 Lower body dressin Putting on/taking off footwear: 3 OT [facility] Goals Dry Plasterer Helper Goals Time Frame: Jul 24, 2021 Eating (QC): 6 (met) Oral Hygiene (QC): 6 (met) Toileting Hygiene (QC): 6 (met) Shower/Bathe Self (QC): 6 (met) Upper Body Dressing (QC): 6 (met) Lower Body Dressing (QC): 6 (met) On/Off Footwear (QC): 6 (met) Additional Goals: 1-Demonstrate ADL Tasks, 2-Verbalize Understanding, 3- ImproveStrength/Queenie 1=Demonstrate adherence to instructed precautions during ADL tasks. 2=Patient will verbalize/demonstrate understanding of assistive devices/modifications for ADL. 3=Patient will improve strength/tolerance for activity to enable patient to perform ADL's. OT Education/Plan Problem List/Assessment Assessment: Impaired Self-Care Skills Discharge Recommendations Plan/Recommendations: Continue POC Treatment Plan/Plan of Care Patient would benefit from OT for education, treatment and training to promote independence in ADL's, mobility, safety and/or upper extremity function for ADL's. Plan of Care: ADL Retraining, Functional Mobility, Group Exercise/Act as Ind, UE Funct Exercise/Act Treatment Duration: Jul 24, 2021 Frequency: At least 5 of 7 days/Wk (IRF) Estimated Hrs Per Day: 1.5 hours per day Agreement: Yes Rehab Potential: Good Time/GCodes Start Time: 12:30 Stop Time: 13:00 Total Time Billed (hr/min): 30 Billed Treatment Time 1 visit-ADL 2 (30 min) ROSA M NOVA Jul 07, 2021 13:45
[2021-07-07 20:00] VITALS: BP 136/62
[2021-07-07] MEDS: traZODone 50 MG (DESYREL) TAB PO SCH (21:56)
[2021-07-07] MEDS: [UNRECOGNIZED DRUG - REMARK] TOP SCH (21:59)
[2021-07-08] MEDS: oxyCODONE/APAP 5/325MG (PERCOCET 5) TABLET PO PRN ×2 (04:49→12:52)
[2021-07-08] MEDS: inSUlin ASPART (NovoLOG) 1 UNIT/0.01 ML (CHARGE PER UNIT) SC SCH ×3 (06:57→15:15)
[2021-07-08] MEDS ORDERED: ROSU20TA32 PO (07:12)
[2021-07-08] MEDS ORDERED: APIX2.5T PO (07:12)
[2021-07-08] MEDS ORDERED: OXYC1TAB87 PO (07:12)
[2021-07-08] MEDS ORDERED: PANT40TA52 PO (07:12)
[2021-07-08] MEDS ORDERED: TRZ50T PO (07:12)
[2021-07-08] MEDS ORDERED: POTA-179 PO (07:12)
[2021-07-08] MEDS ORDERED: CLOR7.5T3 PO (07:12)
[2021-07-08] MEDS ORDERED: AMIO200T65 PO (07:12)
[2021-07-08] MEDS ORDERED: BUME1TAB8 PO (07:12)
[2021-07-08] MEDS ORDERED: CARV3.122 PO (07:12)
[2021-07-08] MEDS ORDERED: CLOP75TA28 PO (07:12)
[2021-07-08] MEDS ORDERED: INSU100I10 SC (07:12)
--- NOTE | 2021-07-08 07:13 | D/C HH Face to Face Order ---
D/C HH Face to Face Orders Reconcile Patient Problems Problems Reviewed?: Yes Instructions for Patient HH Patient Instructions/FollowUp: PCP 1 week Physician to follow Patient: PCP Discharge Diet for Home: ADA Diet Patient Problems: Debility Patient Data-Allergies,Ht & Wt Patient Allergies: Coded Allergies: temazepam (Verified Allergy, Unknown, 06/26/21) Home Health Need/Face to Face Date of Face to Face: Jul 08, 2021 Clinical Findings: Generalized weakness and fatigue, Instability, Muscle weakne ss I have seen Pt excu-rs-zvgn: Yes Discharged To: Home Diagnosis/Conditions: Debility Patient is Homebound due to: Emeterio fall risk due to instabilty, Muscle weakness Homebound Status Due to the above stated illness, injury or surgical procedure (medical condit ion or diagnosis) and associated clinical findings, the patient is homebound because of his/her inability to leave home except with aid of a supportive device and/or person AND leaving the home requires a considerable and taxing effort or is medically contraindicated. Pt req the following assistanc: Walker Home Health Nursing Orders Home Health Services Order: Nursing Services, [place]agon Winder-Evaluate & Treat, Physical Therapy-Evaluate & Treat Certify Stmt I certify that this patient is under my care and that I, a nurse practitioner or a physician; a assistant signal maintainer working with me, had a face to face encounter that - meets the physician face to face encounter requirements with this patient as dated. CARLENE BYRNE DO Jul 08, 2021 07:13
--- NOTE | 2021-07-08 07:14 | Discharge Summary ---
Diagnosis/Chief Complaint Date of Admission Jun 26, 2021 at 11:05 Date of Discharge Discharge Date: Jul 08, 2021 Discharge Diagnosis Assessment: Critical illness myopathy Recent new onset atrial fibrillation with RVR now normal sinus rhythm on amiodarone and Coreg Diabetes Hypertension Hyperlipidemia COPD CHF Chronic kidney disease stage III CAD previous bypass GERD HERMINIO Najera catheter in place now discontinued and voiding well Edema Plan: Rehab protocol Restarted all meds from [facility] Supportive care 06/27/2021: Supportive care DC Najera catheter Tuesday in case urinary retention occurs and urology will be available 06/28/2021: Supportive care DC catheter tomorrow 06/29/2021: DC catheter Urology consultation 06/30/2021: Voiding well so we will discontinue urology consultation Continue aggressive therapy 07/01/2021: Supportive care Improved status 07/02/2021: Supportive care 07/03/2021: Discharge plan for Tuesday Supportive care 07/04/2021: Discharge on Tuesday07/05/2021: Diuretic to discuss with cardiology Check meds and labs 07/06/2021: Appreciate cardiology Diuretics 07/07/2021: Supportive care Discharge home tomorrow (1) Chronic heart failure with preserved ejection fraction (HFpEF) Assessment & Plan: He reports a history of heart failure and was never told he had a low ejection fraction. I did review the records from the outside hospital a second time and could not find any echocardiogram report. He takes furosemide at home but presumably due to the acute kidney injury, this was stopped at the outside facility. His peripheral edema persists. I stopped his oral bumetanide due to a rise in his creatinine level. (2) Persistent atrial fibrillation Assessment & Plan: From his description, he underwent a cardioversion at the outside hospital but has been in atrial fibrillation in our hospital. His heart rate is controlled with amiodarone and carvedilol. I did adjust his Eliquis because he was not on the appropriate dose at the outside hospital. I do not see any urgent need for cardioversion. This will need to be followed closely by his outside aircraft time clerk following discharge. 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 He is not taking aspirin because he is on apixaban due to the atrial fibrillation. For unclear reasons, he is also on clopidogrel. This may need to be addressed by his regular outside aircraft time clerk following discharge. Dual pathway inhibition, particularly with clopidogrel, is not necessarily indicated unless the patient had a recent coronary stent or acute coronary syndrome. I recommend he continue on carvedilol and statin medication. (4) Primary hypertension Assessment & Plan: His blood pressures have improved since increasing his dose of carvedilol on 07/01. If any develops recurrent elevated blood pressures, I would maximize the dose of carvedilol. I would not prescribe amlodipine or his peripheral edema will likely become much worse. (5) Mixed hyperlipidemia Assessment & Plan: Continue atorvastatin. (6) Acute kidney injury superimposed on chronic kidney disease Assessment & Plan: I do not have a record of his baseline renal function. As above, his renal function appears to be worsening with diuretic which I have stopped. Discharge Summary Discharge Physical Examination Allergies: Coded Allergies: temazepam (Verified Allergy, Unknown, 06/26/21) Vitals & I&Os Vital Signs Date Time Temp Pulse Resp B/P (MAP) Pulse Ox O2 Delivery O2 Flow Rate FiO2 07/08/21 17:00 36.4 72 20 107/68 96 Nasal Cannula 3.00 General Appearance: Alert, Oriented X3, Cooperative Respiratory: Clear to Auscultation Cardiovascular: Regular Rate Neuro: Normal Gait, Normal Speech, Strength at 5/5 X4 Ext Psych/Mental Status: Mental Status NL Hospital Course Was the Problem List Reviewed?: Yes Pt had an uneventful 13 day hospital course in in-patient rehab after he was hospitalized shelter at [facility]. He was able to remain on oxygen and wean down. He was able to participate in all therapy. Cardiology evaluated and changed around some cardiac medication. He was overall doing very well and back to near baseline activity. He was deemed stable for discharge. Labs (last 24 hrs) Laboratory Tests 06/26/21 20:18: Glucometer 230H 06/27/21 05:02: Glucometer 103 06/27/21 06:20: White Blood Count 4.8, Red Blood Count 3.16L, Hemoglobin 9.5L, Hematocrit 30L, Mean Corpuscular Volume 96, Mean Corpuscular Hemoglobin 30, Mean Corpuscular Hemoglobin Concent 31L, Red Cell Distribution Width 15.7H, Platelet Count 140, Mean Platelet Volume 9.5, Immature Granulocyte % (Auto) 1, Neutrophils (%) (Auto) 55, Lymphocytes (%) (Auto) 28, Monocytes (%) (Auto) 10, Eosinophils (%) (Auto) 5, Basophils (%) (Auto) 1, Neutrophils # (Auto) 2.7, Lymphocytes # (Auto) 1.3, Monocytes # (Auto) 0.5, Eosinophils # (Auto) 0.3, Basophils # (Auto) 0.0, Immature Granulocyte # (Auto) 0.0, Sodium Level 139, Potassium Level 4.0, Chloride Level 100, Carbon Dioxide Level 25, Anion Gap 14, Blood Urea Nitrogen 26H, Creatinine 2.38H, Estimat Glomerular Filtration Rate 29, BUN/Creatinine Ratio 11, Glucose Level 119H, Calcium Level 8.8, Corrected Calcium 9.3, Total Bilirubin 0.7, Aspartate Amino Transf (AST/SGOT) 16, Alanine Aminotransferase (ALT/SGPT) 17, Alkaline Phosphatase 100, Total Protein 6.4, Albumin 3.4 06/27/21 11:04: Glucometer 139H 06/27/21 15:23: Glucometer 170H 06/27/21 20:11: Glucometer 190H 06/28/21 05:10: Glucometer 80 06/28/21 05:45: Sodium Level 140, Potassium Level 3.8, Chloride Level 102, Carbon Dioxide Level 25, Anion Gap 13, Blood Urea Nitrogen 24H, Creatinine 2.30H, Estimat Glomerular Filtration Rate 30, BUN/Creatinine Ratio 10, Glucose Level 92, Calcium Level 8.9 06/28/21 10:46: Glucometer 164H 06/28/21 15:14: Glucometer 156H 06/28/21 20:30: Glucometer 262H 06/29/21 05:42: Glucometer 101 06/29/21 06:21: White Blood Count 4.3, Red Blood Count 3.14L, Hemoglobin 9.5L, Hematocrit 30L, Mean Corpuscular Volume 95, Mean Corpuscular Hemoglobin 30, Mean Corpuscular Hemoglobin Concent 32, Red Cell Distribution Width 15.8H, Platelet Count 146, Mean Platelet Volume 9.5, Immature Granulocyte % (Auto) 1, Neutrophils (%) (Auto) 50, Lymphocytes (%) (Auto) 33, Monocytes (%) (Auto) 9, Eosinophils (%) (Auto) 6, Basophils (%) (Auto) 1, Neutrophils # (Auto) 2.2, Lymphocytes # (Auto) 1.4, Monocytes # (Auto) 0.4, Eosinophils # (Auto) 0.3, Basophils # (Auto) 0.0, Immature Granulocyte # (Auto) 0.0, Sodium Level 140, Potassium Level 3.8, Chloride Level 100, Carbon Dioxide Level 27, Anion Gap 13, Blood Urea Nitrogen 21H, Creatinine 2.53H, Estimat Glomerular Filtration Rate 27, BUN/Creatinine Ratio 8, Glucose Level 107H, Calcium Level 8.7, Corrected Calcium 9.1, Total Bilirubin 0.7, Aspartate Amino Transf (AST/SGOT) 15, Alanine Aminotransferase (ALT/SGPT) 15, Alkaline Phosphatase 95, Total Protein 6.4, Albumin 3.5, Thyroid Stimulating Hormone (TSH) 5.32H 06/29/21 10:57: Glucometer 143H 06/29/21 16:40: Glucometer 136H 06/29/21 21:11: Glucometer 192H 06/30/21 05:35: Glucometer 89 06/30/21 06:30: Sodium Level 140, Potassium Level 3.7, Chloride Level 100, Carbon Dioxide Level 25, Anion Gap 15H, Blood Urea Nitrogen 21H, Creatinine 2.50H, Estimat Glomerular Filtration Rate 27, BUN/Creatinine Ratio 8, Glucose Level 102, Calcium Level 8.6 06/30/21 11:27: Glucometer 139H 06/30/21 16:45: Glucometer 151H 06/30/21 21:19: Glucometer 154H 07/01/21 05:25: Sodium Level 139, Potassium Level 3.7, Chloride Level 100, Carbon Dioxide Level 24, Anion Gap 15H, Blood Urea Nitrogen 24H, Creatinine 2.75H, Estimat Glomerular Filtration Rate 24, BUN/Creatinine Ratio 9, Glucose Level 112H, Calcium Level 8 .7 07/01/21 10:44: Glucometer 193H 07/01/21 16:41: Glucometer 137H 07/01/21 20:10: Glucometer 168H 07/02/21 05:04: Sodium Level 139, Potassium Level 3.6, Chloride Level 100, Carbon Dioxide Level 25, Anion Gap 14, Blood Urea Nitrogen 23H, Creatinine 2.59H, Estimat Glomerular Filtration Rate 26, BUN/Creatinine Ratio 9, Glucose Level 108H, Calcium Level 8.7 07/02/21 05:22: Glucometer 116H 07/02/21 10:54: Glucometer 191H 07/02/21 16:26: Glucometer 103 07/02/21 20:22: Glucometer 178H 07/03/21 05:27: Glucometer 113H 07/03/21 06:20: Sodium Level 138, Potassium Level 3.6, Chloride Level 101, Carbon Dioxide Level 25, Anion Gap 12, Blood Urea Nitrogen 23H, Creatinine 2.58H, Estimat Glomerular Filtration Rate 26, BUN/Creatinine Ratio 9, Glucose Level 116H, Calcium Level 8.6 07/03/21 11:49: Glucometer 143H 07/03/21 15:35: Glucometer 163H 07/03/21 20:21: Glucometer 171H 07/04/21 05:31: Glucometer 104 07/04/21 11:01: Glucometer 169H 07/04/21 16:57: Glucometer 127H 07/04/21 20:36: Glucometer 220H 07/05/21 06:09: Glucometer 102 07/05/21 10:57: Glucometer 197H 07/05/21 15:22: Glucometer 138H 07/05/21 20:13: Glucometer 148H 07/06/21 05:38: White Blood Count 4.5, Red Blood Count 3.04L, Hemoglobin 9.0L, Hematocrit 29L, Mean Corpuscular Volume 95, Mean Corpuscular Hemoglobin 30, Mean Corpuscular Hemoglobin Concent 31L, Red Cell Distribution Width 14.7H, Platelet Count 154, Mean Platelet Volume 9.6, Immature Granulocyte % (Auto) 1, Neutrophils (%) (Aut o) 52, Lymphocytes (%) (Auto) 32, Monocytes (%) (Auto) 10, Eosinophils (%) (Auto) 5, Basophils (%) (Auto) 1, Neutrophils # (Auto) 2.3, Lymphocytes # (Auto) 1.4, Monocytes # (Auto) 0.4, Eosinophils # (Auto) 0.2, Basophils # (Auto) 0.1, Immature Granulocyte # (Auto) 0.0, Sodium Level 139, Potassium Level 3.9, Chloride Level 104, Carbon Dioxide Level 24, Anion Gap 11, Blood Urea Nitrogen 18, Creatinine 2.32H, Estimat Glomerular Filtration Rate 30, BUN/Creatinine Ratio 8, Glucose Level 108H, Calcium Level 8.9, Corrected Calcium 9.4, Total Bilirubin 0.6, Aspartate Amino Transf (AST/SGOT) 16, Alanine Aminotransferase (ALT/SGPT) 14, Alkaline Phosphatase 87, Total Protein 6.3L, Albumin 3.4 07/06/21 11:05: Glucometer 188H 07/06/21 15:16: Glucometer 148H 07/06/21 20:10: Glucometer 149H 07/07/21 05:17: Glucometer 107 07/07/21 11:08: Glucometer 206H 07/07/21 16:48: Glucometer 123H 07/07/21 21:48: Glucometer 182H 07/08/21 06:55: Glucometer 115H 07/08/21 10:50: Glucometer 202H 07/08/21 15:11: Glucometer 129H Pending Labs Laboratory Tests 06/26/21 20:18: Glucometer 230 06/27/21 05:02: Glucometer 103 06/27/21 06:20: White Blood Count 4.8, Red Blood Count 3.16, Hemoglobin 9.5, Hematocrit 30, Mean Corpuscular Volume 96, Mean Corpuscular Hemoglobin 30, Mean Corpuscular Hemoglobin Concent 31, Red Cell Distribution Width 15.7, Platelet Count 140, Mean Platelet Volume 9.5, Immature Granulocyte % (Auto) 1, Neutrophils (%) (Auto) 55, Lymphocytes (%) (Auto) 28, Monocytes (%) (Auto) 10, Eosinophils (%) (Auto) 5, Basophils (%) (Auto) 1, Neutrophils # (Auto) 2.7, Lymphocytes # (Auto) 1.3, Monocytes # (Auto) 0.5, Eosinophils # (Auto) 0.3, Basophils # (Auto) 0.0, Immature Granulocyte # (Auto) 0.0, Sodium Level 139, Potassium Level 4.0, Chlori de Level 100, Carbon Dioxide Level 25, Anion Gap 14, Blood Urea Nitrogen 26, Creatinine 2.38, Estimat Glomerular Filtration Rate 29, BUN/Creatinine Ratio 11, Glucose Level 119, Calcium Level 8.8, Corrected Calcium 9.3, Total Bilirubin 0.7, Aspartate Amino Transf (AST/SGOT) 16, Alanine Aminotransferase (ALT/SGPT) 17, Alkaline Phosphatase 100, Total Protein 6.4, Albumin 3.4 06/27/21 11:04: Glucometer 139 06/27/21 15:23: Glucometer 170 06/27/21 20:11: Glucometer 190 06/28/21 05:10: Glucometer 80 06/28/21 05:45: Sodium Level 140, Potassium Level 3.8, Chloride Level 102, Carbon Dioxide Level 25, Anion Gap 13, Blood Urea Nitrogen 24, Creatinine 2.30, Estimat Glomerular Filtration Rate 30, BUN/Creatinine Ratio 10, Glucose Level 92, Calcium Level 8.9 06/28/21 10:46: Glucometer 164 06/28/21 15:14: Glucometer 156 06/28/21 20:30: Glucometer 262 06/29/21 05:42: Glucometer 101 06/29/21 06:21: White Blood Count 4.3, Red Blood Count 3.14, Hemoglobin 9.5, Hematocrit 30, Mean Corpuscular Volume 95, Mean Corpuscular Hemoglobin 30, Mean Corpuscular Hemoglobin Concent 32, Red Cell Distribution Width 15.8, Platelet Count 146, Mean Platelet Volume 9.5, Immature Granulocyte % (Auto) 1, Neutrophils (%) (Auto) 50, Lymphocytes (%) (Auto) 33, Monocytes (%) (Auto) 9, Eosinophils (%) (Auto) 6, Basophils (%) (Auto) 1, Neutrophils # (Auto) 2.2, Lymphocytes # (Auto) 1.4, Monocytes # (Auto) 0.4, Eosinophils # (Auto) 0.3, Basophils # (Auto) 0.0, Immature Granulocyte # (Auto) 0.0, Sodium Level 140, Potassium Level 3.8, Chloride Level 100, Carbon Dioxide Level 27, Anion Gap 13, Blood Urea Nitrogen 2 1, Creatinine 2.53, Estimat Glomerular Filtration Rate 27, BUN/Creatinine Ratio 8, Glucose Level 107, Calcium Level 8.7, Corrected Calcium 9.1, Total Bilirubin 0.7, Aspartate Amino Transf (AST/SGOT) 15, Alanine Aminotransferase (ALT/SGPT) 15, Alkaline Phosphatase 95, Total Protein 6.4, Albumin 3.5, Thyroid Stimulating Hormone (TSH) 5.32 06/29/21 10:57: Glucometer 143 06/29/21 16:40: Glucometer 136 06/29/21 21:11: Glucometer 192 06/30/21 05:35: Glucometer 89 06/30/21 06:30: Sodium Level 140, Potassium Level 3.7, Chloride Level 100, Carbon Dioxide Level 25, Anion Gap 15, Blood Urea Nitrogen 21, Creatinine 2.50, Estimat Glomerular Filtration Rate 27, BUN/Creatinine Ratio 8, Glucose Level 102, Calcium Level 8.6 06/30/21 11:27: Glucometer 139 06/30/21 16:45: Glucometer 151 06/30/21 21:19: Glucometer 154 07/01/21 05:25: Sodium Level 139, Potassium Level 3.7, Chloride Level 100, Carbon Dioxide Level 24, Anion Gap 15, Blood Urea Nitrogen 24, Creatinine 2.75, Estimat Glomerular Filtration Rate 24, BUN/Creatinine Ratio 9, Glucose Level 112, Calcium Level 8.7 07/01/21 10:44: Glucometer 193 07/01/21 16:41: Glucometer 137 07/01/21 20:10: Glucometer 168 07/02/21 05:04: Sodium Level 139, Potassium Level 3.6, Chloride Level 100, Carbon Dioxide Level 25, Anion Gap 14, Blood Urea Nitrogen 23, Creatinine 2.59, Estimat Glomerular Filtration Rate 26, BUN/Creatinine Ratio 9, Glucose Level 108, Calcium Level 8.7 07/02/21 05:22: Glucometer 116 07/02/21 10:54: Glucometer 191 07/02/21 16:26: Glucometer 103 07/02/21 20:22: Glucometer 178 07/03/21 05:27: Glucometer 113 07/03/21 06:20: Sodium Level 138, Potassium Level 3.6, Chloride Level 101, Carbon Dioxide Level 25, Anion Gap 12, Blood Urea Nitrogen 23, Creatinine 2.58, Estimat Glomerular Filtration Rate 26, BUN/Creatinine Ratio 9, Glucose Level 116, Calcium Level 8.6 07/03/21 11:49: Glucometer 143 07/03/21 15:35: Glucometer 163 07/03/21 20:21: Glucometer 171 07/04/21 05:31: Glucometer 104 07/04/21 11:01: Glucometer 169 07/04/21 16:57: Glucometer 127 07/04/21 20:36: Glucometer 220 07/05/21 06:09: Glucometer 102 07/05/21 10:57: Glucometer 197 07/05/21 15:22: Glucometer 138 07/05/21 20:13: Glucometer 148 07/06/21 05:38: White Blood Count 4.5, Red Blood Count 3.04, Hemoglobin 9.0, Hematocrit 29, Mean Corpuscular Volume 95, Mean Corpuscular Hemoglobin 30, Mean Corpuscular Hemoglobin Concent 31, Red Cell Distribution Width 14.7, Platelet Count 154, Mean Platelet Volume 9.6, Immature Granulocyte % (Auto) 1, Neutrophils (%) (Auto) 52, Lymphocytes (%) (Auto) 32, Monocytes (%) (Auto) 10, Eosinophils (%) (Auto) 5, Basophils (%) (Auto) 1, Neutrophils # (Auto) 2.3, Lymphocytes # (Auto) 1.4, Monocytes # (Auto) 0.4, Eosinophils # (Auto) 0.2, Basophils # (Auto) 0.1, Immature Granulocyte # (Auto) 0.0, Sodium Level 139, Potassium Level 3.9, Chloride Level 104, Carbon Dioxide Level 24, Anion Gap 11, Blood Urea Nitrogen 18, Creatinine 2.32, Estimat Glomerular Filtration Rate 30, BUN/Creatinine Ratio 8, Glucose Level 108, Calcium Level 8.9, Corrected Calcium 9.4, Total Bilirubin 0.6, Aspartate Amino Transf (AST/SGOT) 16, Alanine Aminotransferase (ALT/SGPT) 14, Alkaline Phosphatase 87, Total Protein 6.3, Albumin 3.4 07/06/21 11:05: Glucometer 188 07/06/21 15:16: Glucometer 148 07/06/21 20:10: Glucometer 149 07/07/21 05:17: Glucometer 107 07/07/21 11:08: Glucometer 206 07/07/21 16:48: Glucometer 123 07/07/21 21:48: Glucometer 182 07/08/21 06:55: Glucometer 115 07/08/21 10:50: Glucometer 202 07/08/21 15:11: Glucometer 129 Discharge Home Medications: Active Scripts Active Bumetanide 1 Mg Tablet 1 Mg PO DAILY Trazodone HCl 50 Mg Tablet 50 Mg PO HS Percocet 5-325 mg Tablet (Oxycodone HCl/Acetaminophen) 1 Each Tablet 1 Tab PO Q4H PRN Carvedilol 3.125 Mg Tablet 6.25 Mg PO BID Amiodarone HCl 200 Mg Tablet 200 Mg PO DAILY Eliquis (Apixaban) 2.5 Mg Tablet 5 Mg PO BID Rosuvastatin Calcium 20 Mg Tablet 20 Mg PO Q48H Potassium Chloride 20 Meq Tab.er.prt 20 Meq PO DAILY Clorazepate Dipotassium 7.5 Mg Tablet 7.5 Mg PO HS Lantus Solostar (Insulin Glargine,Hum.rec.anlog) 100 Unit/1 Ml Insuln.pen 30 Units SC HS 14 Days Clopidogrel (Clopidogrel Bisulfate) 75 Mg Tablet 75 Mg PO DAILY Pantoprazole Sodium 40 Mg Tablet.dr 40 Mg PO DAILY Reported Vitamin D3 (Cholecalciferol (Vitamin D3)) 50 Mcg Capsule 50 Mcg PO DAILY Bumetanide 1 Mg Tablet 1 Mg PO BID Victoza 3-Micah (Liraglutide) 0.6 Mg/0.1 Ml Pen.injctr 1.8 Mg SQ HS Tylenol (Acetaminophen) 325 Mg Tablet 650 Mg PO Q6H PRN Instructions to patient/family Please see electronic discharge instructions given to patient. Diagnosis/Problems Diagnosis/Problems (1) Myopathy (2) History of renal dialysis (3) Increased BMI (4) Atrial fibrillation (5) Anticoagulation adequate CARLENE BYRNE DO Jul 08, 2021 07:14
[2021-07-08 07:59] VITALS: BP 107/68
[2021-07-08] MEDS: AMIODARONE 200 MG (CORDARONE) TAB PO SCH (08:29)
[2021-07-08] MEDS: CLOPIDOGREL 75 MG (PLAVIX) TABLET PO SCH (08:29)
[2021-07-08] MEDS: APIXABAN 2.5 MG (ELIQUIS) TABLET PO SCH (08:29)
[2021-07-08] MEDS: PANTOPRAZOLE 40 MG (PROTONIX) TAB PO SCH (08:29)
[2021-07-08] MEDS: DOCUSATE SODIUM 100 MG (COLACE) CAP PO SCH (08:29)
[2021-07-08] MEDS: BUMETANIDE 1 MG (BUMEX) TAB PO SCH (08:29)
[2021-07-08] MEDS: polyethylene glycoL POWDER 17 GM (MIRALAX) PACK PO SCH (08:30)
[2021-07-08] MEDS: SENNA W/DOCUSATE (SENOKOT S) TABLET PO SCH (08:30)
--- NOTE | 2021-07-08 09:28 | Cardiology Progress Note ---
Subjective Date Seen by Provider: Jul 08, 2021 Time Seen by Provider: 08:15 Subjective/Events-last exam Patient is sitting up at bedside, no new complaint Review of Systems General: No Chills, No Night Sweats, No Malaise, No Appetite, No Other HEENT: No Head Aches, No Visual Changes, No Eye Pain, No Ear Pain, No Dysphasia, No Sinus Congestion, No Post Nasal Drip, No Sore Throat, No Other Pulmonary: No Dyspnea, No Cough, No Pleuritic Chest Pain, No Other Cardiovascular: Edema; No: Chest Pain, Palpitations, Orthopnea, Paroxysmal Noc. Dyspnea, Lt Headedness, Other Objective-Cardiology Exam Last Set of Vital Signs Vital Signs 07/08/21 07/08/21 07:59 09:00 Temp 36.4 Pulse 72 Resp 20 B/P (MAP) 107/68 (81) Pulse Ox 96 O2 Delivery Nasal Cannula O2 Flow Rate 3.00 General: Alert, Oriented X3, Cooperative HEENT: Atraumatic, PERRLA Neck: Supple, No JVD, No Thyromegaly Lungs: Clear to Auscultation, Normal Air Movement Heart: Normal S1, Normal S2, No Murmurs, Other (a fib) Abdomen: Normal Bowel Sounds, Soft, No Tenderness, No Hepatosplenomegaly, No Masses Extremities: No Clubbing, No Cyanosis, No Edema, Normal Pulses, No Tenderness/Swelling Skin: No Rashes, No Breakdown, No Significant Lesion Neuro: Normal Gait, Normal Speech, Strength at 5/5 X4 Ext, Normal Tone, Sensation Intact Psych/Mental Status: Mental Status NL, Mood NL A/P-Cardiology Admission Diagnosis Congestive heart failure Persistent atrial fibrillation Hypertension Coronary artery disease Assessment/Plan Congestive heart failure, history of chronic compensated left ventricular diastolic dysfunction, questionable history of systolic dysfunction. He was on diuretics which was held due to the renal failure. Using compression socks. Reporting improvement after started on Bumex 1 mg daily. Patient is going home today and will follow up with Dr. Garcia. Persistent atrial fibrillation, patient reported that he had a cardioversion at [facility]. Currently is in atrial fibrillation, heart rate is controlled on amiodarone and carvedilol. Continue on Eliquis. Coronary artery disease, history of CABG, history of 2 stents in the past. Foll owing with Dr. Garcia as an outpatient. Hypertension, continue to monitor blood pressure Hyperlipidemia, continue on Lipitor Acute on chronic renal insufficiency. Continue to monitor renal function. Generalized fatigue and loss of energy. Receiving physical therapy OK for discharge from cardiology standpoint. F/u with Dr. Garcia in 1-2 weeks. Supervisory-Addendum Brief Supervisory Addendum Participated in pt care: history, MDM, physical Personally performed: exam, history, MDM Care discussed with: MAILE Results interpretation: Verified all documentation Notes: Patient was seen and evaluated with Georgie, examination performed, management plan was discussed, agree with the current scribed note, I made few changes to the note using Italic font Patient was sitting at bedside, feeling better Still having pedal edema but overall reporting improvement. Okay for discharge and follow-up as an outpatient GEORGIE BAIRD Jul 08, 2021 09:28 SONIA ROSE MD Jul 08, 2021 13:46
--- NOTE | 2021-07-08 11:06 | Physical Therapy Daily Note ---
PT Daily Note-Current Subjective Pt. agrees to Rx. Pain Location: No Pain Reported Mental Status Patient Orientation: Normal For Age Attachments: Oxygen (3L) Transfers SCALE: Activities may be completed with or without assistive devices. 3-Ciszstvoiq-xnntsyl completes the activity by him/herself with no assistance from a helper. 5-Set-up or Clean-up Assistance-helper sets up or cleans up; patient completes activity. [place] assists only prior to or following the activity. 4-Supervision or Touching Assistance-helper provides verbal cues and/or touching/steadying and/or contact guard assistance as patient completes activity. Assistance may be provided throughout the activity or intermittently. 3-Partial/Moderate Assistance-helper does LESS THAN HALF the effort. [place] lifts, holds or supports trunk or limbs, but provides less than half the effort. 2-Substantial/Maximal Assistance-helper does MORE THAN HALF the effort. [place] lifts or holds trunk or limbs and provides more than half the effort. 9-Zganolnug-sxpoer does ALL the effort. Patient does none of the effort to complete the activity. Or, the assistance of 2 or more helpers is required for the patient to complete the activity. If activity was not attempted, code reason: 7-Patient Refused. 9-Not Applicable-not attempted and the patient did not perform the activity before the current illness, exacerbation or injury. 10-Not Attempted due to Environmental Limitations-(lack of equipment, weather restraints, etc.). 88-Not Attempted due to Medical Conditions or Safety Concerns. Roll Left & Right (QC): 6 Sit to Lying (QC): 6 Lying to Sitting/Side of Bed(Q: 6 Sit to Stand (QC): 6 Chair/Wzz-dn-Hjrvv Xfer(QC): 4 Toilet Transfer (QC): 6 Weight Bearing Full Weight Bearing Full Weight Bearing Gait Training Does the Patient Walk?: Yes Walk 10 feet (QC): 4 Walk 50 ft with 2 Turns(QC): 4 Walk 150 ft (QC): 4 Gait Persons Needed: 1 Gait Assistive Device: FWW Exercises Supine Ex: Bridging, Ankle pumps, Quad Set, Rolling, Glut sets, Heel Slides, Short Arc Quads, Scooting, Straight leg raise, Hip abd/add Supine Reps: 12 Seated Therapy Exercises: Ankle pumps, Sit to stand, Long arc quads, Hip flexion Seated Reps: 15 NuStep Minutes: 8 NuStep Workload: 2 Treatments seated and sup therex, gait 150x1, 75x2 FWW assist for O2 Assessment Current Status: Good Progress PT Short Term Goals Short Term Goals Time Frame: Jul 03, 2021 Roll Left & Right: 6 Sit to lyin Lying to sitting on side of be: 6 Sit to stand: 4 (CGA) Chair/hdk-du-cfmnb transfer: 4 (SBA) Walk 10 feet: 4 (SBA) Walk 50 feet with two turns: 4 (SBA) PT Intermediate Goals Bag Checker Goals PT Bag Checker Goals Time Frame: Jul 17, 2021 Roll Left & Right (QC): 6 Sit to Lying (QC): 6 Lying-Sitting on Side/Bed(QC): 6 Sit to Stand (QC): 4 (CGA) Chair/Nbh-qj-Ltraq Xfer(QC): 6 Toilet Transfer (QC): 6 Car Transfer (QC): 4 (CGA) Does the Patient Walk: Yes Walk 10 feet (QC): 6 Walk 50ft with 2 Turns (QC): 6 Walk 150 ft (QC): 6 Walking 10ft on Uneven Surface: 6 1 Step (curb) (QC): 4 (CGA) 4 Steps (QC): 4 (CGA) 12 Steps (QC): 88 Picking up an Object (QC): 6 Wheel 50 feet with 2 turns (QC: 9 Wheel 150 feet: 9 PT Plan Treatment/Plan Treatment Plan: Continue Plan of Care Treatment Plan: Bed Mobility, Education, Functional Activity Queenie, Functional Strength, Group Therapy, Gait, Safety, Therapeutic Exercise, Transfers Treatment Duration: Jul 17, 2021 Frequency: At least 5 of 7 days/Wk (IRF) Estimated Hrs Per Day: 1.5 hours per day Patient and/or Family Agrees t: Yes Safety Risks/Education Patient Education: Gait Training, Transfer Techniques, Correct Positioning, Disease Process, Safety Issues Teaching Recipient: Patient Teaching Methods: Demonstration, Discussion Response to Teaching: Verbalize Understanding, Return Demonstration, Reinforcement Needed Time/GCodes Time In: 1100 Time Out: 1200 Total Billed Treatment Time: 60 Total Billed Treatment 1,GT25m,EX35m this note is for treatment rendered on 07-02-2021 late documentation ANNETTE Webb LEE A PTA Jul 08, 2021 11:06
--- NOTE | 2021-07-08 14:11 | Therapy Team Discharge Summary ---
Therapy Discharge Summary Discharge Recommendations Date of Discharge Physical Therapy Roll Left to Right (QC): 6 Sit to Lying (QC): 6 Lying to Sitting/Side of Bed(Q: 6 Sit to Stand (QC): 6 Chair/Zka-zk-Ymrrv Xfer(QC): 4 Toilet Transfer (QC): 6 Car Transfer (QC): 6 Does the Patient Walk: Yes Mode of Locomotion: Walk Anticipated Mode of Locomotion: Walk Walk 10 feet (QC): 4 Walk 50 ft with 2 Turns(QC): 4 Walk 150 ft (QC): 4 Walking 10ft on uneven surface: 4 Distance: 40', 5' Gait Assistive Device: FWW Does the Pt Use a Wheelchair: No Wheel 50 ft with 2 turns (QC): 9 Wheel 150 ft (QC): 9 #of Steps: 4 1 Step (curb) (QC): 4 4 Steps (QC): 4 12 Steps (QC): 7 Balance Sitting Static: Normal Balance Sitting Dynamic: Normal Balance-Standing Static: Fair Picking up an Object (QC): 6 Occupational Therapy Pt admitted to ARU with critical illness myopathy. At [facility], pt was independent with ADLs and functional mobility, no AD/AE. Upon initial evaluation, pt required set up with eating and upper body dressing, min A oral care and showering, max A lower body dressing and toileting, and total assist footwear. OT txs focused on increasing BUE strength and activity tolerance, and increasing independence with ADLs and functional mobility. Pt made good progress towards goals, meeting all LTGs. Pt discharging from facility on this date, d/c from OT. Impaired Self-Care Skills Eating (QC): 6 Oral Hygiene (QC): 6 Shower/Bathe Self (QC): 6 Upper Body Dressing (QC): 6 Lower Body Dressing (QC): 6 On/Off Footwear (QC): 6 Toileting Hygiene (QC): 6 PT Skilled Nursing Goals On Call Goals PT On Call Goals Time Frame: Jul 17, 2021 Roll Left to Right (QC): 6 Sit to Lying (QC): 6 Lying-Sitting on Side/Bed(QC): 6 Sit to Stand (QC): 4 (CGA) Chair/Ydf-wz-Lzfut Xfer(QC): 6 Car Transfer (QC): 4 (CGA) Does the Patient Walk: Yes Walk 10 feet (QC): 6 Walk 10ft-Uneven Surface(QC): 6 Walk 50ft with 2 Turns (QC): 6 Walk 150 ft (QC): 6 Wheel 50 feet with 2 turns (QC: 9 1 Step (curb) (QC): 4 (CGA) 4 Steps (QC): 4 (CGA) 12 Steps (QC): 88 Picking up an Object (QC): 6 OT Skilled Nursing Goals Skilled Nursing Goals Time Frame: Jul 24, 2021 Eating (QC): 6 (met) Oral Hygiene (QC): 6 (met) Shower/Bathe Self (QC): 6 (met) Upper Body Dressing (QC): 6 (met) Lower Body Dressing (QC): 6 (met) On/Off Footwear (QC): 6 (met) Toileting Hygiene (QC): 6 (met) Toilet/Commode Transfer (QC): 6 Additional Goals: 1-Demonstrate ADL Tasks, 2-Verbalize Understanding, 3- ImproveStrength/Queenie 1=Demonstrate adherence to instructed precautions during ADL tasks. 2=Patient will verbalize/demonstrate understanding of assistive devices/modifications for ADL. 3=Patient will improve strength/tolerance for activity to enable patient to perform ADL's. WILSON TEJADA OT Jul 08, 2021 14:11
--- NOTE | 2021-07-08 16:02 | Therapy Team Discharge Summary ---
Therapy Discharge Summary Discharge Recommendations Date of Discharge Physical Therapy Patient came to rehab with critical illness myopathy. Upon evaluation patient performed rolling and supine <-> sit with SBA, sit <-> stand min assist, transfers CGA, car transfer min assist, ambulate 40' with a rolling walker with CGA, and picked up an object from the floor with CGA using a area sales manager. Patient has been performing bed mobility and transfer training, balance and endurance training, functional strengthening, stair training, gait training, and education. Patient has made good progress and has met all of his senior living goals except for ambulation. Now, patient performs bed mobility and transfers with independence, car transfer independent, ambulates at least 150' with a rolling walker with SBA (including 50' with at least 2 turns of 90 degrees and 10' over an uneven surface), can go up and down 4 steps using 2 handrails with CGA/SBA, and can pick pack worker an object from the floor with independence using a area sales manager. Patient is being discharged from this facility today and will be discharged from PT at this time. Roll Left to Right (QC): 6 Sit to Lying (QC): 6 Lying to Sitting/Side of Bed(Q: 6 Sit to Stand (QC): 6 Chair/Nuo-ar-Myvra Xfer(QC): 4 Toilet Transfer (QC): 6 Car Transfer (QC): 6 Does the Patient Walk: Yes Mode of Locomotion: Walk Anticipated Mode of Locomotion: Walk Walk 10 feet (QC): 4 Walk 50 ft with 2 Turns(QC): 4 Walk 150 ft (QC): 4 Walking 10ft on uneven surface: 4 Distance: 40', 5' Gait Assistive Device: FWW Does the Pt Use a Wheelchair: No Wheel 50 ft with 2 turns (QC): 9 Wheel 150 ft (QC): 9 #of Steps: 4 1 Step (curb) (QC): 4 4 Steps (QC): 4 12 Steps (QC): 7 Balance Sitting Static: Normal Balance Sitting Dynamic: Normal Balance-Standing Static: Fair Picking up an Object (QC): 6 Occupational Therapy Impaired Self-Care Skills Eating (QC): 6 Oral Hygiene (QC): 6 Shower/Bathe Self (QC): 6 Upper Body Dressing (QC): 6 Lower Body Dressing (QC): 6 On/Off Footwear (QC): 6 Toileting Hygiene (QC): 6 PT Mcc Goals Banana Room Cutter Goals PT Banana Room Cutter Goals Time Frame: Jul 17, 2021 Roll Left to Right (QC): 6 Sit to Lying (QC): 6 Lying-Sitting on Side/Bed(QC): 6 Sit to Stand (QC): 4 (CGA) Chair/Bgu-ya-Qxyad Xfer(QC): 6 Car Transfer (QC): 4 (CGA) Does the Patient Walk: Yes Walk 10 feet (QC): 6 Walk 10ft-Uneven Surface(QC): 6 Walk 50ft with 2 Turns (QC): 6 Walk 150 ft (QC): 6 Wheel 50 feet with 2 turns (QC: 9 1 Step (curb) (QC): 4 (CGA) 4 Steps (QC): 4 (CGA) 12 Steps (QC): 88 Picking up an Object (QC): 6 OT Mcc Goals Banana Room Cutter Goals Time Frame: Jul 24, 2021 Eating (QC): 6 (met) Oral Hygiene (QC): 6 (met) Shower/Bathe Self (QC): 6 (met) Upper Body Dressing (QC): 6 (met) Lower Body Dressing (QC): 6 (met) On/Off Footwear (QC): 6 (met) Toileting Hygiene (QC): 6 (met) Toilet/Commode Transfer (QC): 6 Additional Goals: 1-Demonstrate ADL Tasks, 2-Verbalize Understanding, 3- ImproveStrength/Queenie 1=Demonstrate adherence to instructed precautions during ADL tasks. 2=Patient will verbalize/demonstrate understanding of assistive devices/modifications for ADL. 3=Patient will improve strength/tolerance for activity to enable patient to perform ADL's. MIGUEL ANGEL TIRADO PT Jul 08, 2021 16:02
[2021-07-08 17:00] VITALS: BP 107/68
== END 2021-07-08 15:40 | disposition home health service (06) | DRG 92 ==
PROVIDERS: ADMIT Internal Medicine; ATTEND Internal Medicine
PROC: 8E0ZXY6 Isolation (ICD-10-PCS; principal; 2021-06-26)
DX: G72.81 Critical illness myopathy (principal); N17.9 Acute kidney failure, unspecified; I13.0 Hypertensive heart and chronic kidney disease with heart failure and stage 1 through stage 4 chronic kidney disease, or unspecified chronic kidney disease; I50.32 Chronic diastolic (congestive) heart failure; I48.19 Other persistent atrial fibrillation; E11.22 Type 2 diabetes mellitus with diabetic chronic kidney disease; N18.30 Chronic kidney disease, stage 3 unspecified; I25.119 Atherosclerotic heart disease of native coronary artery with unspecified angina pectoris; G47.33 Obstructive sleep apnea (adult) (pediatric); E78.00 Pure hypercholesterolemia, unspecified; E78.2 Mixed hyperlipidemia; J44.9 Chronic obstructive pulmonary disease, unspecified; K21.9 Gastro-esophageal reflux disease without esophagitis; F41.9 Anxiety disorder, unspecified; B35.1 Tinea unguium; L60.0 Ingrowing nail; G60.9 Hereditary and idiopathic neuropathy, unspecified; F32.A Depression, unspecified; Z79.4 Long term (current) use of insulin; Z87.01 Personal history of pneumonia (recurrent); Z95.1 Presence of aortocoronary bypass graft; Z79.01 Long term (current) use of anticoagulants; Z88.8 Allergy status to other drugs, medicaments and biological substances
CPT/HCPCS: 36415; 80048; 80053; 82947; 84443; 85025; 93005; 93306; 94760